=== PATIENT | female | born 2000 | race Caucasian/White ===

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

== ENCOUNTER 2022-02-11 14:51 | Outpatient (REF) | payer MEDICAID, SELFPAY | END 2022-02-11 14:52 | disposition home or self-care (01) | LOC: LBN 14:51 | PROVIDERS: PCP Nurse Practitioner Family; Visit Provider Nurse Practitioner Family | DX: J02.9 Acute pharyngitis, unspecified (principal) | CPT/HCPCS: 87070 ==

== ENCOUNTER 2022-02-17 02:52 | Outpatient (CLI) | payer MEDICAID, SELFPAY ==
[2022-02-17 14:58] LABS: TSH (W/Ref FT4) 1.97 uIU/mL (0.36-3.74)
[2022-02-21 12:55] LABS: Result Summary NEGATIVE; Specimen WB Whole Blood
== END 2022-02-17 02:53 | disposition home or self-care (01) ==
LOC: LBO 02:52
PROVIDERS: PCP Nurse Practitioner Family; Visit Provider Obstetrics & Gynecology
DX: N97.9 Female infertility, unspecified (principal); N92.0 Excessive and frequent menstruation with regular cycle
CPT/HCPCS: 36415; 81220; 84443

== ENCOUNTER 2022-02-17 10:20 | Outpatient (REF) | payer MEDICAID, SELFPAY | END 2022-02-17 10:21 | disposition home or self-care (01) | LOC: LBN 10:20 | PROVIDERS: PCP Nurse Practitioner Family; Visit Provider Physician Assistant | DX: J02.9 Acute pharyngitis, unspecified (principal) | CPT/HCPCS: 87070 ==

== ENCOUNTER 2022-02-19 03:11 | Outpatient (CLI) | payer MEDICAID, SELFPAY ==
[2022-02-19 21:42] LABS: HCG Beta,Quant Preg 9326 mIU/mL (<5)
== END 2022-02-19 03:12 | disposition home or self-care (01) ==
LOC: LBO 03:11
PROVIDERS: PCP Nurse Practitioner Family; Visit Provider Advanced Practice Midwife
DX: O20.8 Other hemorrhage in early pregnancy (principal); Z3A.01 Less than 8 weeks gestation of pregnancy
CPT/HCPCS: 36415; 86850; 86900; 86901; 84702

== ENCOUNTER 2022-02-28 01:18 | Outpatient (CLI) | payer MEDICAID, SELFPAY ==
[2022-02-28 21:56] LABS: HCG Beta,Quant Preg 334 mIU/mL (<5)
== END 2022-02-28 01:19 | disposition home or self-care (01) ==
LOC: LBO 01:18
PROVIDERS: Visit Provider Obstetrics & Gynecology
DX: O26.851 Spotting complicating pregnancy, first trimester (principal)
CPT/HCPCS: 36415; 84702

== ENCOUNTER 2022-04-24 09:27 | Emergency (ER) | payer MEDICAID, SELFPAY ==
[2022-04-24 09:41] VITALS: BP 123/72; PULSE 83; RESP 18; TEMP 37.1; O2SAT 98
--- NOTE | 2022-04-24 10:30 | RT.EKG_ITS ---
APPROVED REPORT Exam: Resting ECG Reason for Exam: palpitations Patient Location: E HR:62 bpm ECG Measurements Heart Rate 62 AXIS OR 126 P -17 QRSd 86 QRS 120 QT 408 T 66 QTc 415 Conclusion Sinus rhythm...normal P axis, V-rate 60- 99 Right axis deviation...QRS axis (111,269)
--- NOTE | 2022-04-24 10:42 | ED.GENADUL_ITS ---
Discharge Plan Disposition Patient Disposition: HOME Condition: Stable Discharge Details Clinical Impression: Anxiety Primary Care Provider: Unknown,Unknown ED Provider: Dav Arreguin Home Meds and New Rx's Prescriptions: New lorazepam [Ativan] 1 mg tablet 1 mg PO TID PRN (Reason: anxiety) Qty: 7 0RF Continued Gummies(zinc chelate) 180 mcg-35 mg- 25 mg-5 mg tablet,chewable PO Discharge Instructions Instructions: Anxiety (ED) Additional Instructions: follow up with your primary care provider within 1 week if you feel more ill, have worsening symptoms or severe pain return to the emergency department do not drink alcohol or operate heavy machinery including cars if you take the lorazepam Medical Decision Making 22 yo female who denies chronic medical problems but has been having feelins of anxiety for the past few weeks and started zoloft, comes in with complaints of feeling anxious and on edge. She denies any si/hi, no depression. she states she wakes up and will feel as though herh eart is beating fast, no pain or dyspnea. She denies alcohol or drug use. she did have a miscarriage in February and states she thinks this may have caused her to become anxious. She arrives stable but does appear anxious, is tearful intermittently and talks fast, is caox4 with no slurred speech, no focal motor or sensation deficits, no abdomen tenderness, no murmurs, clear lungs. Her symptoms and presentation are consistent with anxiety vs panic attack, she is willing to try a dose of lorazepam, will ressess. Given the heart racing sensation will obtain ekg though her heart rate is normal on triage and states she had the feeling of heart racing while this was being done. She has no tachycardia, hypoxia, leg swelling or calf tenderness, doubt pe and no pain or pressure to suggest acs so do not feel labs or imaging indicated. pt feels much better and ekg unremarkable, less anxious on exam. Will provide short course of as needed ativan and advised to f/u with pcp, return precautions given Differential Diagnosis Differential Diagnosis: anxiety, panic attack, palpitations ECG Data Attestation: I personally reviewed and interpreted this ECG (s) as follows: Prior ECG tracings: not available for review Interpretation: sinus rhythm, rate of 62, no acute st t wave ischemic findings HPI General Mode of arrival: ambulatory . Date/Time Provider Initiated Documentation: 04/24/22 09:33 . Limitations to Documentation: no limitations . Information obtained by: patient . History of Present Illness 22 year old F presents to the emergency department with the chief complaint of anxiety, described as moderate, Patient started experiencing this week(s) (3) and it has been constant. No relieving factors improve symptom(s), No exacerbating factors reported . Patient did receive the following treatments prior to arrival, none Related Data Home Medications Medication Instructions Recorded Confirmed PNV 178-FA 180 mcg-om3 35 mg-dha tab PO 01/06/22 02/26/22 25 mg-epa 5 mg-fish oil chew tablet ( Gummies (zinc chelate)) lorazepam 1 mg tablet (Ativan) 1 mg PO TID PRN anxiety #7 tabs 04/24/22 Previous Rx's Medication Instructions Recorded lorazepam 1 mg tablet (Ativan) 1 mg PO TID PRN anxiety #7 tabs 04/24/22 Allergies Allergy/AdvReac Type Severity Reaction Status Date / Time No Known Allergies Allergy Verified 02/26/22 14:51 General Stated Complaint: Anxiety LYUDMILA: 4 Review of Systems All systems reviewed & are unremarkable except as noted in HPI and below Constitutional Constitutional: Denies chills, Denies fever(s) and Denies weakness Cardiovascular Cardiovascular: Denies chest pain and Denies dyspnea Respiratory Respiratory: Denies cough and Denies dyspnea Gastrointestinal Gastrointestinal: Denies abdominal pain, Denies nausea and Denies vomiting Integumentary/Breasts Skin/Breast: Denies rash Neurologic Neurologic: Denies weakness Psychiatric Psychiatric: Denies depression PFSH All Active Problems (Updated 04/24/22 @ 11:04 by Dav Arreguin MD) Anxiety (Chronic) 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) Pelvic pain (Acute) Depression (Chronic) Heart murmur (Acute) Learning difficulty (Chronic) IEP signed 05/24/18 Medical History (Updated 04/24/22 @ 11:04 by Dav Arreguin MD) Complete miscarriage Learning difficulty Family History Mother Mental disorder anxiety/depression Gestational diabetes Father Essential hypertension Other Diabetes MGM, MGF, mat uncles Alcohol abuse MGF Essential hypertension mat uncles, PGF, MGF Personal history of malignant neoplasm mat side Heart disease PGF, MGF Hyperlipidemia MGF Mental disorder MGM, MGF, mat uncles- anxiety/depression Myocardial infarction PGF, MGF Stroke MGF Social History Smoking/Tobacco Use Status: Never Smoking risk assessment performed?: Yes Alcohol Intake: current Alcohol Intake frequency: holidays/special occasions only Alcohol type: hard liquor Drug use: Never Substance use type: does not use Duration: 45-60 minutes/day Frequency: daily Seatbelt use: always Helmet use: No Fire extinguisher in home: Yes Carbon monox detector in home: Yes Firearms in home: No Do you feel safe at home: Yes Do you feel safe in your relationship?: Yes Female Reproductive History Menstrual Age of Menarche: 16 Duration of menses: 6-7 days control method: none and implanted History History 1 Para Hx # Term Pregnancies Multiple births Hx # Pregnancies Ectopic pregnancies AB induced Hx Number of Living Children AB spontaneous 1 Past Pregnancies Del. Date GA/Weeks # Preg Succ Route Wgt Sex Labor Lgth Anesth esia Location Prov [facility] 02/26/22 7 No No Delivery Date: 02/26/22 Last Updated by: Rosy Pozo LPN miscarriage Exam Const General: anxious Orientation: alert HENMT Head: normal to inspection Ears: external ears normal General nose exam: external nose normal Mouth: moist mucous membranes Eyes General: appearance normal, both eyes and all related structures Neck Neck: normal visual inspection Resp Effort & Inspection: normal respiratory effort and able to speak in complete sentences Cardio Rate: regular rate GI Palpation: soft and nontender Skin General skin exam: no rashes or lesions noted Neuro General: patient alert and patient oriented x3 Extrem General: normal to inspection Psych Mental Status: mental status grossly normal Course Vital Signs Vital signs: Vital Signs Temperature 37.1 C 04/24/22 09:41 Pulse 83 04/24/22 09:41 Respiratory Rate 18 04/24/22 09:41 Blood Pressure 123/72 04/24/22 09:41 Pulse Oximetry 98 04/24/22 09:41 Temperature 37.1 C 04/24/22 09:41 Temperature Source Temporal Artery Scan 04/24/22 09:41 Pulse 83 04/24/22 09:41 Respiratory Rate 18 04/24/22 09:41 Blood Pressure 123/72 04/24/22 09:41 Blood Pressure Position Sitting 04/24/22 09:41 Pulse Oximetry 98 04/24/22 09:41 Oxygen Delivery Method Room Air 04/24/22 09:41 Oxygen Flow Rate 0 04/24/22 09:41
[2022-04-24] MEDS: LORazepam 1 MG TAB PO (10:51)
[2022-04-24 11:26] VITALS: BP 120/76; PULSE 62; O2SAT 98
[2022-04-24 11:28] VITALS: RESP 18
== END 2022-04-24 11:31 | disposition home or self-care (01) ==
PROVIDERS: Emergency Provider Emergency Medicine
DX: F41.9 Anxiety disorder, unspecified (principal); F32.9 Major depressive disorder, single episode, unspecified
CPT/HCPCS: 93005; 99283; 93010; 99284

== ENCOUNTER 2022-04-25 16:18 | Outpatient (REF) | payer MEDICAID, SELFPAY ==
[2022-04-25 15:44] LABS: HCT 39.3 % (36.0-46.0); HGB 13.1 g/dL (11.2-15.7); MCH 28.8 pg (27.0-33.0); MCHC 33.3 % (32.0-36.0); MCV 86 fL (80-95); Platelet Count 392 10^3/uL (130-400); RBC 4.55 10^6/uL (3.93-5.22); RDW 13.4 % (11.7-14.6); RDW-SD 42.1 fL; WBC 10.72 10^3/uL (4.4-10.8)
[2022-04-25 16:44] LABS: TSH (W/Ref FT4) 0.92 uIU/mL (0.36-3.74)
[2022-04-25 16:49] LABS: HCG Qual (Serum) Negative
== END 2022-04-25 16:19 | disposition home or self-care (01) ==
LOC: NCHCN 16:18
PROVIDERS: Visit Provider Family Medicine
DX: F41.9 Anxiety disorder, unspecified (principal); F41.0 Panic disorder [episodic paroxysmal anxiety]; Z87.59 Personal history of other complications of pregnancy, childbirth and the puerperium
CPT/HCPCS: 85027; 84443; 84703

== ENCOUNTER 2022-04-30 07:47 | Emergency (ER) | payer MEDICAID, SELFPAY ==
[2022-04-30] VITALS (36 sets, daily range): BP systolic 95–150; BP diastolic 66–111; PULSE 55–152; RESP 10–36; TEMP 36.8–37.2; O2SAT 97–100
--- NOTE | 2022-04-30 08:25 | ED.GENADUL_ITS ---
Discharge Plan Disposition Patient Disposition: HOME Condition: Improving Discharge Details Clinical Impression: Abdominal pain Primary Care Provider: Unknown,Unknown ED Provider: Bridgette Be Home Meds and New Rx's Prescriptions: No Action lorazepam [Ativan] 1 mg tablet 1 mg PO TID PRN (Reason: anxiety) Qty: 7 0RF Discharge Instructions Instructions: Abdominal Pain (ED) Additional Instructions: Please return immediately to the emergency department if you develop any new or worsening symptoms, if your condition does not improve as expected, or if you become otherwise concerned. It is extremely important that you call soon as possible to make an appointment to be seen in follow-up for this visit by your primary care doctor. It is very important that you attend your scheduled telehealth visit with Dr. Hinds this Thursday, 05/02, at 10:00 AM. Referrals: Hetal Hinds MD [ [facility] STAFF PHYSICIAN] - Medical Decision Making Concern for ectopic , pancreatitis, gastritis, colitis, other. Doubt pulmonary embolism. Bedside POCUS shows question trace free fluid at the liver tip on hepatorenal view, no free fluid on pelvic or splenorenal windows. [id number] test positive. I discussed patient emergently with Dr. Hinds of obstetrics, who will see patient, she requests defer further imaging at this time. Plan for IV placement x2, telemetry, screening labs. Patient heart rate 70-80 after reassurance and lengthy discussion regarding plan for medical care. Blood pressure 123/91. Dr. Hinds at bedside, performed internal examination. She recommends formal transvaginal ultrasound at this time. Per radiology ultrasound shows somewhat thickened endometrium, no gestational sac, no adnexal abnormality, free fluid in the pelvis. hCG 50. I discussed lab and radiology results with Dr. Hinds, who requested patient be discharged home with outpatient follow-up this Wednesday 05/02 at 10 AM. She states hCG likely residual from miscarriage 03/10. I discussed results with the patient. Patient reports continued left upper quadrant pain. I discussed risk/benefits of CT for further evaluation with the patient including risk of CT scan indicates that hCG represents very early viable . Patient verbalized understanding of risks and requests CT scan with shared decision making. Per radiology CT shows no abnormality other than free fluid in the pelvis consistent with possible hemorrhagic cyst. Plan for repeat H&H. Patient reports that she feels significantly better at that this time and has no further abdominal pain. She requests to go home. She is amenable to waiting for repeat H&H. Repeat hemoglobin 12.5, dilutional drop anticipated, no sign of significant hemorrhage. Patient denies abdominal pain, lightheadedness, other symptoms reports feeling well. I had a discussion with Patient regarding return to emergency department precautions, home care, and importance of outpatient follow-up. Pt verbalizes understanding of the plan and is amenable. Patient discharged to home with clear plan for outpatient follow-up. All questions were answered. Disposition decision was made weighing the risks and benefits of hospitalization versus outpatient treatment, the risk for further decompensation, and the patient's wishes. Medical Records Medical records reviewed: Yes I reviewed the patient's medical records. Imaging Data Radiologic Study: Radiologist's impression: EXAM:? CT ABDOMEN ? PELVIS W INDICATION:? LUQ pain. COMPARISON:? No exams were available for comparison TECHNIQUE:? FINDINGS: CT examination of the abdomen and pelvis was performed with intravenous infusion of 67 cc of Omnipaque 350. Images obtained through the lung bases are unremarkable. The liver is unremarkable in appearance. Gallbladder and bile ducts are CT normal. Pancreas appears normal. Spleen is unremarkable in appearance. Adrenals appear normal.? The kidneys are unremarkable with no evidence of hydronephrosis, nephrolithiasis, or renal mass..? Urinary bladder unremarkable. Abdominal aorta is of normal diameter and no major vascular abnormality is seen. No abdominal wall hernia. No abdominal or pelvic adenopathy. VEST MAKER structures appear intact with a probable left ovarian collapsed cyst.? There is small to moderate free fluid in the pelvis.. Appendix is normal. No evidence of diverticulitis or bowel obstruction. IMPRESSION: Free fluid in the pelvis, probable left ovarian collapsed cyst.? No other significant findings.. EXAM:? US OB 1ST TRIMESTER CLINICAL HISTORY:? abdominal pain, + test TECHNIQUE:? Ultrasound? performed using standard protocol. COMPARISON:? No exams were available for comparison FINDINGS: Pelvic ultrasound was performed.? There is no intrauterine gestation.? Endometrial stripe is 17 millimeters in thickness and appears homogeneous. The ovaries have a normal follicular appearance, right ovary measures 21 x 11 x 13 millimeters and left ovary measures 32 x 20 x 20 millimeters. There is a small to moderate quantity of free fluid in the pelvis which is nonspecific. No evidence of intrauterine gestation, please correlate with serum HCG levels. Lab Data Lab results reviewed: Yes I reviewed the patient's lab results. Labs: Laboratory Tests Range/Units 04/30/22 04/30/22 04/30/22 08:10 08:10 08:10 WBC (4.4-10.8) 10^3/uL RBC (3.93-5.22) 10^6/uL Hgb (11.2-15.7) g/dL Hct (36.0-46.0) % MCV (80-95) fL MCH (27.0-33.0) pg MCHC (32.0-36.0) % RDW (11.7-14.6) % Plt Count (130-400) 10^3/uL MPV (8.0-11.0) fL Immature Gran % Neutrophils % Lymphocytes % Monocytes % Eosinophils % Basophils % Nucleated RBC % (0.0-0.3) % Absolute Neutrophils (1.2-6.7) 10^3/uL Absolute Lymphocytes (1.2-3.4) 10^3/uL Absolute Monocytes (0.1-0.8) 10^3/uL Absolute Eosinophils (0.0-0.7) 10^3/uL Absolute Basophils (0.0-0.2) 10^3/uL PT (9.3-11.0) sec 10.5 INR (0.9-1.1) 1.0 Sodium (136-145) mmol/L 138 Potassium (3.5-5.1) mmol/L 3.3 L Chloride (98-107) mmol/L 102 Carbon Dioxide (21.0-32.0) mmol/L 24.8 Anion Gap (3-11) mmol/L 11.2 H BUN (7-18) mg/dL 11 Creatinine (0.55-1.02) mg/dL 0.8 Est GFR (CKD-EPI 2020) (mL/min/1.73m2) 108.11 Glucose (74-106) mg/dL 101 Calcium (8.5-10.1) mg/dL 9.2 Total Bilirubin (0.2-1.0) mg/dL 0.3 AST (15-37) U/L 17 ALT (14-59) U/L 22 Alkaline Phosphatase (46-116) U/L 77 Total Protein (6.4-8.2) g/dL 8.3 H Albumin (3.4-5.0) g/dL 4.5 Lipase (73-393) U/L Beta HCG, Quant (1-3) mIU/mL Patient ABO/Rh O Positive Antibody Screen NEGATIVE Range/Units 04/30/22 04/30/22 04/30/22 08:10 08:10 08:10 WBC (4.4-10.8) 10^3/uL 13.44 H RBC (3.93-5.22) 10^6/uL 4.93 Hgb (11.2-15.7) g/dL 14.2 Hct (36.0-46.0) % 42.4 MCV (80-95) fL 86 MCH (27.0-33.0) pg 28.8 MCHC (32.0-36.0) % 33.5 RDW (11.7-14.6) % 13.4 Plt Count (130-400) 10^3/uL 389 MPV (8.0-11.0) fL 10.2 Immature Gran % 0.3 Neutrophils % 73.5 Lymphocytes % 18.8 Monocytes % 6.5 Eosinophils % 0.5 Basophils % 0.4 Nucleated RBC % (0.0-0.3) % 0.0 Absolute Neutrophils (1.2-6.7) 10^3/uL 9.88 H Absolute Lymphocytes (1.2-3.4) 10^3/uL 2.53 Absolute Monocytes (0.1-0.8) 10^3/uL 0.87 H Absolute Eosinophils (0.0-0.7) 10^3/uL 0.07 Absolute Basophils (0.0-0.2) 10^3/uL 0.05 PT (9.3-11.0) sec INR (0.9-1.1) Sodium (136-145) mmol/L Potassium (3.5-5.1) mmol/L Chloride (98-107) mmol/L Carbon Dioxide (21.0-32.0) mmol/L Anion Gap (3-11) mmol/L BUN (7-18) mg/dL Creatinine (0.55-1.02) mg/dL Est GFR (CKD-EPI 2020) (mL/min/1.73m2) Glucose (74-106) mg/dL Calcium (8.5-10.1) mg/dL Total Bilirubin (0.2-1.0) mg/dL AST (15-37) U/L ALT (14-59) U/L Alkaline Phosphatase (46-116) U/L Total Protein (6.4-8.2) g/dL Albumin (3.4-5.0) g/dL Lipase (73-393) U/L 74 Beta HCG, Quant (1-3) mIU/mL 50 H Patient ABO/Rh Antibody Screen Range/Units 04/30/22 12:29 WBC (4.4-10.8) 10^3/uL RBC (3.93-5.22) 10^6/uL Hgb (11.2-15.7) g/dL 12.5 Hct (36.0-46.0) % 36.8 MCV (80-95) fL MCH (27.0-33.0) pg MCHC (32.0-36.0) % RDW (11.7-14.6) % Plt Count (130-400) 10^3/uL MPV (8.0-11.0) fL Immature Gran % Neutrophils % Lymphocytes % Monocytes % Eosinophils % Basophils % Nucleated RBC % (0.0-0.3) % Absolute Neutrophils (1.2-6.7) 10^3/uL Absolute Lymphocytes (1.2-3.4) 10^3/uL Absolute Monocytes (0.1-0.8) 10^3/uL Absolute Eosinophils (0.0-0.7) 10^3/uL Absolute Basophils (0.0-0.2) 10^3/uL PT (9.3-11.0) sec INR (0.9-1.1) Sodium (136-145) mmol/L Potassium (3.5-5.1) mmol/L Chloride (98-107) mmol/L Carbon Dioxide (21.0-32.0) mmol/L Anion Gap (3-11) mmol/L BUN (7-18) mg/dL Creatinine (0.55-1.02) mg/dL Est GFR (CKD-EPI 2020) (mL/min/1.73m2) Glucose (74-106) mg/dL Calcium (8.5-10.1) mg/dL Total Bilirubin (0.2-1.0) mg/dL AST (15-37) U/L ALT (14-59) U/L Alkaline Phosphatase (46-116) U/L Total Protein (6.4-8.2) g/dL Albumin (3.4-5.0) g/dL Lipase (73-393) U/L Beta HCG, Quant (1-3) mIU/mL Patient ABO/Rh Antibody Screen HPI General Mode of arrival: ambulatory . Date/Time Provider Initiated Documentation: 04/30/22 08:00 . Limitations to Documentation: no limitations . Information obtained by: patient . HPI Narrative: Simone Jackson is a 22-year-old woman without reported history of medical problems presenting to emergency department with abdominal pain. Patient reports that she went to bed with mild generalized abdominal pain last night, woke up at 2 in the morning with sharp pain in the left upper quadrant. Patient reports that she otherwise had a normal day yesterday, denies any trauma. Patient denies any other pain, fever, cough, shortness of breath, vomiting, diarrhea, numbness, weakness, rash, vaginal bleeding. Patient reports that last menstrual period was 04/04/2022; she states that this period was unusually heavy and was the first menstrual period that she has had since September 2021 when she had a miscarriage. Related Data Home Medications Medication Instructions Recorded Confirmed lorazepam 1 mg tablet (Ativan) 1 mg PO TID PRN anxiety #7 tabs 04/24/22 04/30/22 Previous Rx's Medication Instructions Recorded lorazepam 1 mg tablet (Ativan) 1 mg PO TID PRN anxiety #7 tabs 04/24/22 Allergies Allergy/AdvReac Type Severity Reaction Status Date / Time No Known Allergies Allergy Verified 04/30/22 08:10 General Stated Complaint: Abd Prob LYUDMILA: 3 Review of Systems Narrative: Constitutional: denies fevers Eyes: denies eye pain ENT: denies ear pain, dental pain, sore throat Cardiovascular: denies chest pain, edema Respiratory: denies SOB, cough GI: denies vomiting, diarrhea, reports abdominal pain : denies flank pain, vaginal bleeding MSK: denies back pain, neck pain, arthralgias, myalgias Skin: denies rash Neuro: denies headaches, numbness, weakness PFSH All Active Problems (Updated 04/30/22 @ 12:56 by Bridgette Be MD) Anxiety (Chronic) Abdominal pain (Acute) 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) Pelvic pain (Acute) Depression (Chronic) Heart murmur (Acute) Learning difficulty (Chronic) IEP signed 05/24/18 Medical History Complete miscarriage Learning difficulty Family History Mother Mental disorder anxiety/depression Gestational diabetes Father Essential hypertension Other Diabetes MGM, MGF, mat uncles Alcohol abuse MGF Essential hypertension mat uncles, PGF, MGF Personal history of malignant neoplasm mat side Heart disease PGF, MGF Hyperlipidemia MGF Mental disorder MGM, MGF, mat uncles- anxiety/depression Myocardial infarction PGF, MGF Stroke MGF Social History Smoking/Tobacco Use Status: Never Smoking risk assessment performed?: Yes Alcohol Intake: current Alcohol Intake frequency: holidays/special occasions only Alcohol type: hard liquor Drug use: Never Substance use type: marijuana Duration: 45-60 minutes/day Frequency: daily Seatbelt use: always Helmet use: No Fire extinguisher in home: Yes Carbon monox detector in home: Yes Firearms in home: No Do you feel safe at home: Yes Do you feel safe in your relationship?: Yes Female Reproductive History Menstrual Age of Menarche: 16 Duration of menses: 6-7 days control method: none and implanted History History 1 Para Hx # Term Pregnancies Multiple births Hx # Pregnancies Ectopic pregnancies AB induced Hx Number of Living Children AB spontaneous 1 Past Pregnancies Del. Date GA/Weeks # Preg Succ Route Wgt Sex Labor Lgth Anesth esia Location Prov Complic 02/26/22 7 No No Delivery Date: 02/26/22 Last Updated by: Rosy Pozo LPN miscarriage Exam Narrative Exam Narrative: Constitutional: well and [id number], tearful, conversing normally HENT: head atraumatic/normocephalic/normal inspection, mucous membranes moist Eyes: conjunctiva normal, sclera normal, pupils 3mm b/l Neck: no stridor, normal ROM, trachea midline Chest: normal inspection Resp: normal work of breathing, speaking in full sentences Cardio: Tachycardic rate, normal rhythm GI: abdomen soft, focal tenderness to palpation left upper quadrant, no rebound, no guarding, no other abdominal tenderness to palpation, non-distended Skin: warm, dry, normal color, no rash Neuro: alert, not altered, grossly non-focal, normal tone Ext: no edema Psych: Anxious mood, normal affect, normal behavior Course Vital Signs Vital signs: Vital Signs Temperature 36.8 C 04/30/22 07:50 Pulse 96 H 04/30/22 07:50 Respiratory Rate 16 04/30/22 07:50 Blood Pressure 129/99 H 04/30/22 07:50 Pulse Oximetry 98 04/30/22 07:50 Temperature 36.8 C 04/30/22 07:50 Temperature Source Oral 04/30/22 07:50 Pulse 96 H 04/30/22 07:50 Respiratory Rate 16 04/30/22 07:50 Respiratory Effort Non-Labored 04/30/22 08:12 Blood Pressure 129/99 H 04/30/22 07:50 Pulse Oximetry 98 04/30/22 07:50 Oxygen Delivery Method Room Air 04/30/22 07:50 Oxygen Flow Rate 0 04/30/22 07:50 Lab/Test Results Lab/Test Results: POC- Test(urine) Positive
[2022-04-30] MEDS: Normal Saline 1,000 ML 1000 ML IV (08:40)
[2022-04-30 08:43] LABS: Abs Immature Grans 0.04 10^3/uL (0.0-0.06); Absolute Basophil Count 0.05 10^3/uL (0.0-0.2); Absolute Eosinophil Count 0.07 10^3/uL (0.0-0.7); Absolute Lymphocyte Count 2.53 10^3/uL (1.2-3.4); Absolute Monocyte Count 0.87 10^3/uL (0.1-0.8); Absolute Neutrophil Count 9.88 10^3/uL (1.2-6.7); Basophils % 0.4; Eosinophils % 0.5; HCT 42.4 % (36.0-46.0); HGB 14.2 g/dL (11.2-15.7); Immature Grans % 0.3; Lymphocytes % 18.8; MCH 28.8 pg (27.0-33.0); MCHC 33.5 % (32.0-36.0); MCV 86 fL (80-95); MPV 10.2 fL (8.0-11.0); Monocytes % 6.5; Neutrophils % 73.5; Platelet Count 389 10^3/uL (130-400); RBC 4.93 10^6/uL (3.93-5.22); RDW 13.4 % (11.7-14.6); RDW-SD 42.3 fL; WBC 13.44 10^3/uL (4.4-10.8)
--- NOTE | 2022-04-30 08:49 | DI.US_ITS ---
Exam(s) US OB 1ST TRIMESTER EXAM: US OB 1ST TRIMESTER CLINICAL HISTORY: abdominal pain, + test TECHNIQUE: Ultrasound performed using standard protocol. COMPARISON: No exams were available for comparison FINDINGS: Pelvic ultrasound was performed. There is no intrauterine gestation. Endometrial stripe is 17 kleber meters in thickness and appears homogeneous. The ovaries have a normal follicular appearance, right ovary measures 21 x 11 x 13 millimeters and le ft ovary measures 32 x 20 x 20 millimeters. There is a small to moderate quantity of free fluid in the pelvis which is nonspecific. No evidence of intrauterine gestation, please correlate with serum HCG levels. IMPRESSION: DATA REPOSITORY:
[2022-04-30] MEDS: fentaNYL 100 MCG/2 ML VIAL 40 MCG IVP (08:57)
[2022-04-30 08:58] LABS: Prothrombin Time 10.5 sec (9.3-11.0)
[2022-04-30 09:01] LABS: Lipase 74 U/L (73-393)
[2022-04-30 09:06] LABS: ALT 22 U/L (14-59); AST 17 U/L (15-37); Albumin 4.5 g/dL (3.4-5.0); Alkaline Phosphatase 77 U/L (46-116); Anion Gap 11.2 mmol/L (3-11); BUN 11 mg/dL (7-18); Bilirubin, Total 0.3 mg/dL (0.2-1.0); CO2 24.8 mmol/L (21.0-32.0); CREATININE 0.8 mg/dL (0.55-1.02); Calcium 9.2 mg/dL (8.5-10.1); Chloride 102 mmol/L (98-107); Estimated GFR 108.11 (mL/min/1.73m2); Glucose 101 mg/dL (74-106); Potassium 3.3 mmol/L (3.5-5.1); Sodium 138 mmol/L (136-145); Total Protein 8.3 g/dL (6.4-8.2)
[2022-04-30 09:30] LABS: HCG Quant, Pregnancy 50 mIU/mL (1-3)
--- NOTE | 2022-04-30 10:15 | DI.CT_ITS ---
Exam(s) CT ABDOMEN PELVIS W EXAM: CT ABDOMEN PELVIS W INDICATION: LUQ pain. COMPARISON: No exams were available for comparison TECHNIQUE: FINDINGS: CT examination of the abdomen and pelvis was performed with intravenous infusion of 67 cc of Omnipaqu e 350. Images obtained through the lung bases are unremarkable. The liver is unremarkable in appearance. Gallbladder and bile ducts are CT normal. Pancreas appears normal. Spleen is unremarkable in appearance. Adrenals appear normal. The kidneys are unremarkable with no evidence of hydronephrosis, nephrolithiasis, or renal mass.. Ur inary bladder unremarkable. Abdominal aorta is of normal diameter and no major vascular abnormality is seen. No abdominal wall hernia. No abdominal or pelvic adenopathy. MAGAZINE REPAIRER structures appear intact with a probable left ovarian collapsed cyst. There is small to moderate free fluid in the pelvis.. Appendix is normal. No evidence of diverticulitis or bowel obstruction. IMPRESSION: Free fluid in the pelvis, probable left ovarian collapsed cyst. No other significant findings.. RADIATION DOSE DELIVERED: 484.11mGy.cm Total DLP 484.11mGy.cm Total DLP !Error CTDIvol RADIATION OPTIMIZATION: All CT scans at this facility use at least one of these dose optimization te chniques: automated exposure control; mA and/or kV adjustment per patient size (includes targeted exa ms where dose is matched to clinical indication); or iterative reconstruction.
[2022-04-30] MEDS: Omnipaque 350 MG/ML 500 ML BTL-Imaging package IJ (11:32)
[2022-04-30 12:33] LABS: HCT 36.8 % (36.0-46.0); HGB 12.5 g/dL (11.2-15.7)
== END 2022-04-30 13:24 | disposition home or self-care (01) ==
PROVIDERS: Emergency Provider Student in an Organized Health Care Education/Training Program
DX: O26.891 Other specified pregnancy related conditions, first trimester (principal); R10.84 Generalized abdominal pain; Z3A.01 Less than 8 weeks gestation of pregnancy; O09.291 Supervision of pregnancy with other poor reproductive or obstetric history, first trimester
CPT/HCPCS: 80053; 81025; 83690; 86850; 86900; 86901; 96361; 96374; 99285; 74177; 76801; 84702; 85014; 85018; 85025; 85610; 99284; J3010

== ENCOUNTER 2022-05-02 14:49 | Outpatient (CLI) | payer MEDICAID, SELFPAY ==
[2022-05-02 11:09] LABS: HCG Quant, Pregnancy 172 mIU/mL (1-3)
== END 2022-05-02 14:50 | disposition home or self-care (01) ==
LOC: LBO 14:50
PROVIDERS: Visit Provider Obstetrics & Gynecology Gynecology
DX: R10.2 Pelvic and perineal pain (principal); Z32.01 Encounter for pregnancy test, result positive
CPT/HCPCS: 36415; 84702

== ENCOUNTER 2022-05-08 03:45 | Outpatient (CLI) | payer MEDICAID, SELFPAY ==
[2022-05-08 12:25] LABS: HCG Quant, Pregnancy 1407 mIU/mL (1-3)
== END 2022-05-08 03:46 | disposition home or self-care (01) ==
LOC: LBO 03:45
PROVIDERS: Visit Provider Obstetrics & Gynecology Gynecology
DX: R10.9 Unspecified abdominal pain (principal); Z32.01 Encounter for pregnancy test, result positive
CPT/HCPCS: 36415; 84702

== ENCOUNTER 2022-06-26 01:33 | Outpatient (CLI) | payer MEDICAID, SELFPAY ==
[2022-06-26 14:11] LABS: Panorama Kit Sent via Fed Ex
[2022-06-26 14:15] LABS: Abs Immature Grans 0.05 10^3/uL (0.0-0.06); Absolute Basophil Count 0.05 10^3/uL (0.0-0.2); Absolute Eosinophil Count 0.04 10^3/uL (0.0-0.7); Absolute Lymphocyte Count 1.99 10^3/uL (1.2-3.4); Absolute Monocyte Count 1.04 10^3/uL (0.1-0.8); Absolute Neutrophil Count 9.03 10^3/uL (1.2-6.7); Basophils % 0.4; Eosinophils % 0.3; HCT 38.4 % (36.0-46.0); HGB 13.1 g/dL (11.2-15.7); Immature Grans % 0.4; Lymphocytes % 16.3; MCH 29.5 pg (27.0-33.0); MCHC 34.1 % (32.0-36.0); MCV 87 fL (80-95); MPV 10.2 fL (8.0-11.0); Monocytes % 8.5; Neutrophils % 74.1; Platelet Count 331 10^3/uL (130-400); RBC 4.44 10^6/uL (3.93-5.22); RDW 13.2 % (11.7-14.6); RDW-SD 41.5 fL; WBC 12.18 10^3/uL (4.4-10.8)
[2022-06-27 09:19] LABS: Hepatitis C Ab w Rflx HCV PCR Negative (Negative)
[2022-06-27 10:42] LABS: HIV-1/2 Ag & Ab Screen Negative (Negative)
[2022-06-27 10:55] LABS: Rubella IgG Ab (UVM) Positive (See Note); Varicella IgG Antibody Negative (See Note)
[2022-06-27 11:49] LABS: Hepatitis B Surface Ag Negative (Negative)
[2022-06-27 23:16] LABS: Syphilis IgG w/Reflex Nonreactive (Nonreactive)
== END 2022-06-26 01:34 | disposition home or self-care (01) ==
LOC: LBO 01:33
PROVIDERS: Visit Provider Advanced Practice Midwife
DX: Z34.91 Encounter for supervision of normal pregnancy, unspecified, first trimester (principal); Z3A.11 11 weeks gestation of pregnancy
CPT/HCPCS: 36415; 86787; 86803; 86850; 86900; 86901; 87340; 87389; 85025; 86762; 86780

== ENCOUNTER 2022-06-26 15:41 | Outpatient (REF) | payer MEDICAID, SELFPAY ==
[2022-06-26 17:02] LABS: *AMPHETAMINES SCREEN URINE Negative (Negative); *BARBITURATES SCREEN URINE Negative (Negative); *BENZODIAZEPINES SCREEN URINE Negative (Negative); Cannabinoids THC Positive (Negative); Cocaine Screen,Urine Negative (Negative); METHADONE URINE SCREEN Negative (Negative); OPIATES URINE SCREEN Negative (Negative); Tricyclic Antidepressants Negative (Negative)
[2022-06-29 14:52] LABS: Chlamydia Result Negative (Negative); GC Result Negative (Negative)
[2022-07-02 12:34] LABS: Buprenorphine Negative ng/mL (Cutoff: 5.0); Norbuprenorphine Negative ng/mL (Cutoff: 2.5)
== END 2022-06-26 15:42 | disposition home or self-care (01) ==
LOC: LBN 15:41
PROVIDERS: Visit Provider Advanced Practice Midwife
DX: Z34.91 Encounter for supervision of normal pregnancy, unspecified, first trimester (principal); Z3A.11 11 weeks gestation of pregnancy
CPT/HCPCS: 80307; 80348; 87491; 87591; 87086; 87480; 87510; 87660

== ENCOUNTER 2022-06-27 11:16 | Outpatient (REF) | payer MEDICAID, SELFPAY | END 2022-06-27 11:17 | disposition home or self-care (01) | LOC: LBN 11:16 | PROVIDERS: Visit Provider Physician Assistant Medical | DX: J02.9 Acute pharyngitis, unspecified (principal) | CPT/HCPCS: 87081 ==

== ENCOUNTER 2022-06-28 15:34 | Emergency (ER) | payer MEDICAID, SELFPAY ==
[2022-06-28 15:41] VITALS: BP 116/73; PULSE 97; RESP 17; TEMP 36.9; O2SAT 96
--- NOTE | 2022-06-28 15:57 | ED.GENADUL_ITS ---
Discharge Plan Disposition Patient Disposition: Home Condition: Stable Discharge Details Clinical Impression: Nausea and vomiting during , Influenza Primary Care Provider: KEITH ESPAÑA ED Provider: Dav Arreguin Home Meds and New Rx's Prescriptions: New ondansetron 4 mg tablet,disintegrating 4 mg PO Q8H PRN (Reason: nausea and vomiting) Qty: 30 0RF Continued prenat.vits,danae,[id number] Tablet 1 tab PO DAILY Discharge Instructions Instructions: Nausea and Vomiting in (ED), Influenza (ED) Additional Instructions: you are positive for influenza follow up with your obgyn providers as needed if you feel more ill, have persistent vomiting despite medication or severe pain return to the emergency department Medical Decision Making 22 yo female g1 at approximately 12 weeks per patient comes in with one week of intermittent n/v along with body aches and left ear pain. She denies fevers, chills, chest pain, abdomen pain, dyspnea. She denies vaginal bleeding and discharge She arrives stable speaking in full sentences, abodmen is soft and nontender on exam. Normal tm's bilaterally as well as normal EAC's. Posterior pharynx normal, no erythema, midline uvula. Clear lung sounds, no murmurs, no leg swelling. Suspect vomiting due to pregancy, will provide IVF, reglan, obtain fluvid, cbc and cmp and reassess. pt improved, is able to drink water and requesting d/c. Is positive for influenza and she states was prescribed tamiflu via urgent care yesterday despite testing negative yesterday. She denies any urinary symptoms and doesn't want to stay to provide a sample. She will f/u with her obgyn, return precautions given Differential Diagnosis Differential Diagnosis: flu, uri, hyperemesis gravidarum Sign Out No HPI General Mode of arrival: ambulatory . Date/Time Provider Initiated Documentation: 06/28/22 15:36 . Limitations to Documentation: no limitations . Information obtained by: patient . History of Present Illness 22 year old F presents to the emergency department with the chief complaint of n/v, described as moderate, Patient reports no radiation. Patient started experiencing this day(s) (5) and it has been intermittent. No relieving factors improve symptom(s), No exacerbating factors reported . Patient notes nausea/vomiting; denies chest pain, fever/chills and shortness of breath. Patient did receive the following treatments prior to arrival, other (tylenol) Related Data Home Medications Medication Instructions Recorded Confirmed prenat.vits,danae,[id number] 1 tab PO DAILY 06/09/22 06/28/22 ondansetron 4 mg disintegrating 4 mg PO Q8H PRN nausea and 06/28/22 tablet vomiting #30 tabs Previous Rx's Medication Instructions Recorded ondansetron 4 mg disintegrating 4 mg PO Q8H PRN nausea and 06/28/22 tablet vomiting #30 tabs Allergies Allergy/AdvReac Type Severity Reaction Status Date / Time No Known Allergies Allergy Verified 06/28/22 15:45 General Stated Complaint: GenMedical LYUDMILA: 3 Review of Systems All systems reviewed & are unremarkable except as noted in HPI and below Constitutional Constitutional: Denies chills and Denies fever(s) Eyes Eyes: Denies loss of vision ENT Ears, Nose, Mouth, and Throat: Denies change in voice Cardiovascular Cardiovascular: Denies chest pain and Denies dyspnea Respiratory Respiratory: Denies cough and Denies dyspnea Gastrointestinal Gastrointestinal: Denies abdominal pain Genitourinary Genitourinary: Denies dysuria Musculoskeletal Musculoskeletal: Denies joint swelling Integumentary/Breasts Skin/Breast: Denies rash Neurologic Neurologic: Denies loss of vision PFSH All Active Problems (Updated 06/28/22 @ 17:18 by Dav Arreguin MD) Nausea and vomiting during (Acute) Influenza (Acute) Maternal varicella, non-immune (Acute) Marijuana use during (Acute) Chronic GERD (Acute) (Acute) Depression (Chronic) Heart murmur (Acute) Learning difficulty (Chronic) IEP signed 05/24/18 Medical History (Updated 06/28/22 @ 17:18 by Dav Arreguin MD) Complete miscarriage Learning difficulty Pelvic pain 04/30/22. + upt in [facility] ED. Serial hCG normal rise. Plan viability u/s in May 2022. Family History (Updated 06/26/22 @ 13:17 by Jessica Matias CNM) Mother Mental disorder anxiety/depression Gestational diabetes Father Essential hypertension Other Diabetes MGM, MGF, mat uncles Alcohol abuse MGF Essential hypertension mat uncles, PGF, MGF Personal history of malignant neoplasm mat side Heart disease PGF, MGF Hyperlipidemia MGF Mental disorder MGM, MGF, mat uncles- anxiety/depression Myocardial infarction PGF, MGF Stroke MGF Maternal Grandmother Thyroid disease Social History Smoking/Tobacco Use Status: Never Smoking risk assessment performed?: Yes Alcohol Intake: current Alcohol Intake frequency: holidays/special occasions only Alcohol type: hard liquor Drug use: Never Substance use type: marijuana Duration: 45-60 minutes/day Frequency: daily Seatbelt use: always Helmet use: No Fire extinguisher in home: Yes Carbon monox detector in home: Yes Firearms in home: No Do you feel safe at home: Yes Do you feel safe in your relationship?: Yes Female Reproductive History Menstrual Age of Menarche: 16 Duration of menses: 6-7 days control method: none and implanted History History 2 Para Hx # Term Pregnancies Multiple births Hx # Pregnancies Ectopic pregnancies AB induced Hx Number of Living Children AB spontaneous 1 Past Pregnancies Del. Date GA/Weeks # Preg Succ Route Wgt Sex Labor Lgth Anesth esia Location [facility] 02/26/22 7 No No Delivery Date: 02/26/22 Last Updated by: Rosy Pozo LPN miscarriage Exam Const General: no acute distress Orientation: alert HENMT Head: normal to inspection Ears: external ears normal, TM's normal bilaterally and EAC's normal General nose exam: external nose normal Mouth: moist mucous membranes Eyes General: appearance normal, both eyes and all related structures Neck Neck: normal visual inspection Resp Effort & Inspection: normal respiratory effort and able to speak in complete sentences Cardio Rate: regular rate GI Palpation: soft and nontender Skin General skin exam: no rashes or lesions noted Neuro General: patient alert and patient oriented x3 Extrem General: normal to inspection Psych Mental Status: mental status grossly normal Course Vital Signs Vital signs: Vital Signs Temperature 36.9 C 06/28/22 15:41 Pulse 97 H 06/28/22 15:41 Respiratory Rate 17 06/28/22 15:41 Blood Pressure 116/73 06/28/22 15:41 Pulse Oximetry 96 06/28/22 15:41 Temperature 36.9 C 06/28/22 15:41 Temperature Source Oral 06/28/22 15:41 Pulse 97 H 06/28/22 15:41 Respiratory Rate 17 06/28/22 15:41 Respiratory Effort Non-Labored 06/28/22 15:44 Blood Pressure 116/73 06/28/22 15:41 Blood Pressure Position Sitting 06/28/22 15:41 Pulse Oximetry 96 06/28/22 15:41 Oxygen Delivery Method Room Air 06/28/22 15:41 Oxygen Flow Rate 0 06/28/22 15:41 Pain Level 7 06/28/22 15:41
[2022-06-28 16:08] LABS: Abs Immature Grans 0.05 10^3/uL (0.0-0.06); Absolute Basophil Count 0.03 10^3/uL (0.0-0.2); Absolute Lymphocyte Count 0.58 10^3/uL (1.2-3.4); Absolute Monocyte Count 1.17 10^3/uL (0.1-0.8); Basophils % 0.3; HCT 40.7 % (36.0-46.0); HGB 13.5 g/dL (11.2-15.7); Immature Grans % 0.4; Lymphocytes % 5.1; MCH 28.7 pg (27.0-33.0); MCHC 33.2 % (32.0-36.0); MCV 86 fL (80-95); MPV 10.4 fL (8.0-11.0); Monocytes % 10.3; Neutrophils % 83.9; Platelet Count 293 10^3/uL (130-400); RBC 4.71 10^6/uL (3.93-5.22); RDW 13.2 % (11.7-14.6); RDW-SD 41.7 fL
[2022-06-28 16:09] LABS: Absolute Neutrophil Count 9.56 10^3/uL (1.2-6.7)
[2022-06-28] MEDS: Normal Saline 1,000 ML 1000 ML IV (16:10)
[2022-06-28 16:22] LABS: ALT 24 U/L (14-59); AST 17 U/L (15-37); Albumin 4.2 g/dL (3.4-5.0); Alkaline Phosphatase 83 U/L (46-116); BUN 8 mg/dL (7-18); Bilirubin, Total 0.4 mg/dL (0.2-1.0); CREATININE 0.7 mg/dL (0.55-1.02); Calcium 9.7 mg/dL (8.5-10.1); Chloride 95 mmol/L (98-107); Glucose 99 mg/dL (74-106); Lipase 38 U/L (73-393); Magnesium 1.8 mg/dL (1.8-2.4); Potassium 3.5 mmol/L (3.5-5.1); Sodium 130 mmol/L (136-145); Total Protein 9.1 g/dL (6.4-8.2)
[2022-06-28] MEDS: Metoclopramide 10 MG/2 ML VIAL IVP (16:41)
[2022-06-28 16:49] LABS: COVID-19 PCR Negative (Negative); Influenza A PCR Positive (Negative); Influenza B PCR Negative (Negative); RSV PCR Negative (Negative)
[2022-06-28 16:50] LABS: Source Nasopharynx
[2022-06-28 17:50] VITALS: BP 119/72; PULSE 99; RESP 16; TEMP 37.1; O2SAT 99
[2022-06-28 17:56] VITALS: RESP 20
== END 2022-06-28 17:50 | disposition home or self-care (01) ==
PROVIDERS: Emergency Provider Emergency Medicine; PCP Nurse Practitioner Family
DX: O21.9 Vomiting of pregnancy, unspecified (principal); O99.511 Diseases of the respiratory system complicating pregnancy, first trimester; J10.1 Influenza due to other identified influenza virus with other respiratory manifestations; Z20.822 Contact with and (suspected) exposure to COVID-19; Z3A.12 12 weeks gestation of pregnancy
CPT/HCPCS: 80053; 83690; 87637; 96361; 96374; 99284; 83735; 85025; J2765

== ENCOUNTER 2022-10-16 02:21 | Outpatient (CLI) | payer MEDICAID, SELFPAY ==
[2022-10-16 13:47] LABS: HCT 35.3 % (36.0-46.0); HGB 12.3 g/dL (11.2-15.7); MCH 31.1 pg (27.0-33.0); MCHC 34.8 % (32.0-36.0); MCV 89 fL (80-95); MPV 10.3 fL (8.0-11.0); Platelet Count 257 10^3/uL (130-400); RBC 3.96 10^6/uL (3.93-5.22); RDW 12.4 % (11.7-14.6); RDW-SD 40.8 fL
[2022-10-16 14:02] LABS: Glucose,1 Hr (Glucola) 96 mg/dL (80-140)
== END 2022-10-16 02:22 | disposition home or self-care (01) ==
LOC: LBO 02:21
PROVIDERS: PCP Nurse Practitioner Family; Visit Provider Advanced Practice Midwife
DX: Z34.93 Encounter for supervision of normal pregnancy, unspecified, third trimester (principal); Z3A.27 27 weeks gestation of pregnancy
CPT/HCPCS: 36415; 82950; 85027

== ENCOUNTER 2022-10-16 13:10 | Outpatient (REF) | payer MEDICAID, SELFPAY ==
[2022-10-16 19:20] LABS: *AMPHETAMINES SCREEN URINE Negative (Negative); *BARBITURATES SCREEN URINE Negative (Negative); *BENZODIAZEPINES SCREEN URINE Negative (Negative); Cannabinoids THC Positive (Negative); Cocaine Screen,Urine Negative (Negative); METHADONE URINE SCREEN Negative (Negative); OPIATES URINE SCREEN Negative (Negative)
[2022-10-16 19:21] LABS: Tricyclic Antidepressants Negative (Negative)
[2022-10-23 14:38] LABS: Buprenorphine Negative ng/mL (Cutoff: 5.0); Norbuprenorphine Negative ng/mL (Cutoff: 2.5)
== END 2022-10-16 13:11 | disposition home or self-care (01) ==
LOC: LBN 13:10
PROVIDERS: PCP Nurse Practitioner Family; Visit Provider Advanced Practice Midwife
DX: Z34.93 Encounter for supervision of normal pregnancy, unspecified, third trimester (principal); Z3A.27 27 weeks gestation of pregnancy
CPT/HCPCS: 80307; 80348

== ENCOUNTER 2022-12-12 11:48 | Outpatient (REF) | payer MEDICAID, SELFPAY ==
[2022-12-12 13:17] LABS: *AMPHETAMINES SCREEN URINE Negative (Negative); *BARBITURATES SCREEN URINE Negative (Negative); *BENZODIAZEPINES SCREEN URINE Negative (Negative); Cannabinoids THC Positive (Negative); Cocaine Screen,Urine Negative (Negative); METHADONE URINE SCREEN Negative (Negative); OPIATES URINE SCREEN Negative (Negative)
[2022-12-12 13:18] LABS: Tricyclic Antidepressants Negative (Negative)
[2022-12-19 16:08] LABS: Buprenorphine Negative ng/mL (Cutoff: 5.0); Norbuprenorphine Negative ng/mL (Cutoff: 2.5)
== END 2022-12-12 11:49 | disposition home or self-care (01) ==
LOC: LBN 11:48
PROVIDERS: PCP Nurse Practitioner Family; Visit Provider Advanced Practice Midwife
DX: Z34.93 Encounter for supervision of normal pregnancy, unspecified, third trimester (principal); Z36.85 Encounter for antenatal screening for Streptococcus B; Z3A.36 36 weeks gestation of pregnancy
CPT/HCPCS: 80307; 80348; 87081

== ENCOUNTER 2023-01-11 13:15 | Inpatient (IN) | payer MEDICAID, SELFPAY ==
[2023-01-11] VITALS (8 sets, daily range): BP systolic 118–133; BP diastolic 57–93; PULSE 47–103; RESP 16; TEMP 36.4–36.8; O2SAT 99
--- NOTE | 2023-01-11 13:03 | HPE_ITS ---
Date of service: 01/11/23 Time of Service: 13:03 Assessment and Plan Assessment and plan (1) Uterine contractions: Status: Acute Assessment and plan: A: 22 yo G1 @ 40+2 wks Spontaneous onset active labor GBS+, Rh+, Varicella non-immune Low risk for SD & PPH Category 1 tracing P: Admit to BC, CBC, T&S GBS prophylaxis with PCN Expectant management, intermittent auscultation Comfort measures as pt desires Anticipate OB-HPI Labor/Delivery History of Present Illness Reason for Visit: NST Chief Complaint: Uterine Contractions (contractions that feel like cramps since 429, now every 5 minutes and more uncomfortable, has had blood tinged mucous today, no ROM). RAINA Calculator Estimated Delivery Date Method Current WG Current Estimate 01/09/23 LMP (Certain) 40w 2d Other Estimates 01/13/23 Ultrasound #1 39w 5d History of Present Expected Delivery Route/Plan - CNM FOB/Filinda - Edmond Wright (3 other children, one has CF) BB - John Wright yes to circ support team, Edmond and her mother Shanda Wants to use the tub room, hoping for unmedicated but OK w/epidural Varicella non-immune, offer vaccine GBS POSITIVE, prophylaxis with PCN Specific Issues/Plan 1. Learning Difficulty-reading problems 2. Pelvic pain - CT at ED 04/30/22, confirmed that day by QHCG 3. Panorama drawn - WNL. FOB is CF carrier- Simone previously screened negative. 4. marijuana use- trying to quit. Repeat UDS @ 28 wks + THC POSC done with Stacie Parker, repeat UDS 36 weeks + THC 5. FOB born with SVT requiring surgery - referred for level 2 US at [facility]-normal anatomy. 6. GERD - protonix escribed 06/26/22 7. Varicella non immune, discussed w/pt, will offer vaccine post Assessment: History Reviewed & Current Review of Systems Narrative: ROS completed and noncontributory other than HPI PFSH All Active Problems (Updated 01/11/23 @ 13:11 by Hillary Rivera) Uterine contractions (Acute) Group B Streptococcus carrier state affecting (Acute) Maternal varicella, non-immune (Acute) Marijuana use during (Acute) Chronic GERD (Acute) (Acute) Depression (Chronic) Heart murmur (Acute) Learning difficulty (Chronic) IEP signed 05/24/18 Medical History (Updated 01/11/23 @ 13:11 by Hillary Rivear) Complete miscarriage Learning difficulty Pelvic pain 04/30/22. + upt in [facility] ED. Serial hCG normal rise. Plan viability u/s in May 2022. Family History (Updated 06/26/22 @ 13:17 by Jessica Matias CNM) Mother Mental disorder anxiety/depression Gestational diabetes Father Essential hypertension Other Diabetes MGM, MGF, mat uncles Alcohol abuse MGF Essential hypertension mat uncles, PGF, MGF Personal history of malignant neoplasm mat side Heart disease PGF, MGF Hyperlipidemia MGF Mental disorder MGM, MGF, mat uncles- anxiety/depression Myocardial infarction PGF, MGF Stroke MGF Maternal Grandmother Thyroid disease Social History Smoking/Tobacco Use Status: Never Smoking risk assessment performed?: Yes Alcohol Intake: current Alcohol Intake frequency: holidays/special occasions only Alcohol type: hard liquor Drug use: Never Substance use type: marijuana Duration: 45-60 minutes/day Frequency: daily Seatbelt use: always Helmet use: No Fire extinguisher in home: Yes Carbon monox detector in home: Yes Firearms in home: No Do you feel safe at home: Yes Do you feel safe in your relationship?: Yes Female Reproductive History Menstrual Age of Menarche: 16 Duration of menses: 6-7 days control method: none and implanted History History 2 Para 0 Hx # Term Pregnancies 0 Multiple births 0 Hx # Pregnancies 0 Ectopic pregnancies 0 AB induced 0 Hx Number of Living Children 0 AB spontaneous 1 Past Pregnancies Del. Date GA/Weeks # Preg Succ Route Wgt Sex Labor Lgth Anesth esia Location Prov Complic 02/26/22 7 No No Delivery Date: 02/26/22 Last Updated by: Rosy Pozo LPN miscarriage Meds Allergies and Home Medications Allergies Allergy/AdvReac Type Severity Reaction Status Date / Time No Known Allergies Allergy Verified 01/07/23 14:53 Home Medications Medication Instructions Recorded Confirmed Type prenat.vits,danae,igd-[id number] 1 tab PO DAILY 06/09/22 01/07/23 History pantoprazole 20 mg tablet,delayed 20 mg PO DAILY #90 tabs 11/05/22 01/07/23 Rx release (Protonix) Exam Physical Exam Vital Signs Reviewed: Yes Constitutional Constitutional: mild distress, average body habitus and cooperative Detailed Labor and Delivery Exam Dilation: 6 Effacement (%): 90 station: -1 Cervix position: anterior Consistency: soft Amniotic Membrane Status: Intact (BBOW) Contraction Frequency(min): q 2-4 Contraction Duration(sec): 50-60 Contraction Intensity: Moderate Fetus A Heart Rate Baseline: 135 Monitor Accelerations: 15 X 15 Monitor Decelerations: None Variability: Moderate (6-25 BPM) Categories: Category I Est. Weight: 6 lb 11.586 oz Est. Weight: 3050 gms HEENT Exam HEENT Exam: Normal Neck Exam Neck Exam: Normal Chest/Brest/Axilla Exam Chest Exam: Normal Breast Exam Breast Exam: Not Done Respiratory Exam Respiratory Exam: Normal Cardiovascular Exam Cardiovascular Exam: Normal Abdominal Exam Abdominal Exam: Normal (Gravid, nontender) Rectal Exam Rectal Exam: Normal Exam Exam: Normal Extremities Exam Extremities Exam: Normal Back/Spine/Pelvis Exam Back Exam: Normal Pelvis Adequate: Yes Skin Exam Skin Exam: Normal Neurological Exam Neurological Exam: Normal Psychiatric Exam Psychiatric Exam: Normal Results Results Group Beta Strep: Positive Blood Type: O+ Rubella Status: Immune Varicella Immunity: Nonimmune Risk Assessment Risk for Shoulder Dystocia Historical/Initial OB: NEGATIVE FOR: Pelvic Abnormality, Pre- BMI>30, Previous Shoulder Dystocia or Previous Macrosomia 36 Weeks: NEGATIVE FOR: Current Gestational DM, EFW>4500gms or Maternal Weight Gain>40lbs 40 Weeks: NEGATIVE FOR: EFW> 4500 gms, Maternal Weight Gain >40lb or Post Dates Delivery Plan @ 36wks: spont labor, Delivery Plan @ 40 wks: spont labor, Risk for Pre-Eclampsia Daily Dose ASA Indicated: No Yes, if one or more: NEGATIVE FOR: Hx Pre-E/Gest HTN, Chronic HTN, Multiple Gestation, Pre-gestational DM, Renal Disease, Systemic Lupus or APA Syndrome Yes, if 2 or more: POSITIVE FOR: Nulliparity; NEGATIVE FOR: Age>= 35 yrs, >10yr btwn pregnancies, BMI>30, ethinicty, Mother/Sister w/ Pre-E or Previous IUGR Risk for Post- Hemorrhage Initial: NEGATIVE FOR: Multiple Gestation, Previous PPH, Known Clotting Deficiency, Grand Multiparity or Anticoagulation 36 Weeks: NEGATIVE FOR: Anemia, hgb<10, Low platelets(thrombocytopenia), Gestational HTN or Pre-E, Polyhydraminios or EFW>4500gms 40 Weeks: NEGATIVE FOR: Anemia, hgb<10, Low platelets (thrombocytopenia), Gestation HTN or Pre-E, Polyhydraminios or EFW>4500gms At Risk?: No Counseled re: Active Management: Yes Risks Reviewed Risks Reviewed Upon Admission: Yes
[2023-01-11 13:27] LABS: HCT 37.3 % (36.0-46.0); HGB 13.1 g/dL (11.2-15.7); MCH 31.3 pg (27.0-33.0); MCHC 35.1 % (32.0-36.0); MCV 89 fL (80-95); MPV 10.8 fL (8.0-11.0); Platelet Count 265 10^3/uL (130-400); RBC 4.18 10^6/uL (3.93-5.22); RDW 12.6 % (11.7-14.6); RDW-SD 41.2 fL; WBC 14.23 10^3/uL (4.4-10.8)
[2023-01-11] MEDS: Penicillin G POT. 5,000,000 UNITS in Normal Saline 100 ML 200 UNITS IVPB (13:30)
[2023-01-11] MEDS: Normal Saline Flush 10 ML SYR IVP ×2 (13:34→17:06)
[2023-01-11 13:41] LABS: ALT 25 U/L (14-59); AST 20 U/L (15-37); Albumin 3.2 g/dL (3.4-5.0); Alkaline Phosphatase 149 U/L (46-116); Anion Gap 10.9 mmol/L (3-11); BUN 8 mg/dL (7-18); Bilirubin, Total 0.2 mg/dL (0.2-1.0); CO2 22.1 mmol/L (21.0-32.0); CREATININE 0.7 mg/dL (0.55-1.02); Calcium 9.2 mg/dL (8.5-10.1); Chloride 103 mmol/L (98-107); Glucose 96 mg/dL (74-106); Potassium 3.6 mmol/L (3.5-5.1); Sodium 136 mmol/L (136-145); Total Protein 7.9 g/dL (6.4-8.2)
--- NOTE | 2023-01-11 15:13 | W.PM.OBNL1 ---
Date of service: 01/11/23 Time of Service: 15:13 Pelvic Exam Dilation: 8 Effacement (%): 95 station: -1 Cervix Position: mid Contractions Monitor Mode: Palpation Contraction Frequency(min): q3-4 Fetus A Monitor: Doppler Heart Rate Baseline: 140 FHR Rhythm: Regular Characteristics: Normal Amniotic Membrane Status: Intact Assessment and Plan Assessment and plan (1) Uterine contractions: Status: Acute Assessment and plan: A: 22 yo G1 active labor First dose of PCN Infused P: Continue expectant management Anticipate Objective Abnormal lab results 01/11/23 01/11/23 Range/Units 13:15 13:15 WBC 14.23 H (4.4-10.8) 10^3/uL Alkaline Phosphatase 149 H (46-116) U/L Albumin 3.2 L (3.4-5.0) g/dL Temp Pulse Resp BP Pulse Ox 97.5 F L 103 H 16 130/93 H 99 01/11/23 13:38 01/11/23 13:38 01/11/23 13:38 01/11/23 13:38 01/11/23 13:38 Laboratory Results WBC 14.23 10^3/uL (4.4-10.8) H 01/11/23 13:15 RBC 4.18 10^6/uL (3.93-5.22) 01/11/23 13:15 Hgb 13.1 g/dL (11.2-15.7) 01/11/23 13:15 Hct 37.3 % (36.0-46.0) 01/11/23 13:15 MCV 89 fL (80-95) 01/11/23 13:15 MCH 31.3 pg (27.0-33.0) 01/11/23 13:15 MCHC 35.1 % (32.0-36.0) 01/11/23 13:15 RDW 12.6 % (11.7-14.6) 01/11/23 13:15 Plt Count 265 10^3/uL (130-400) 01/11/23 13:15 MPV 10.8 fL (8.0-11.0) 01/11/23 13:15 Sodium 136 mmol/L (136-145) 01/11/23 13:15 Potassium 3.6 mmol/L (3.5-5.1) 01/11/23 13:15 Chloride 103 mmol/L (98-107) 01/11/23 13:15 Carbon Dioxide 22.1 mmol/L (21.0-32.0) 01/11/23 13:15 Anion Gap 10.9 mmol/L (3-11) 01/11/23 13:15 BUN 8 mg/dL (7-18) 01/11/23 13:15 Creatinine 0.7 mg/dL (0.55-1.02) 01/11/23 13:15 Est GFR (CKD-EPI 2020) 126.90 (mL/min/1.73m2) 01/11/23 13:15 Glucose 96 mg/dL (74-106) 01/11/23 13:15 Calcium 9.2 mg/dL (8.5-10.1) 01/11/23 13:15 Total Bilirubin 0.2 mg/dL (0.2-1.0) 01/11/23 13:15 AST 20 U/L (15-37) 01/11/23 13:15 ALT 25 U/L (14-59) 01/11/23 13:15 Alkaline Phosphatase 149 U/L (46-116) H 01/11/23 13:15 Total Protein 7.9 g/dL (6.4-8.2) 01/11/23 13:15 Albumin 3.2 g/dL (3.4-5.0) L 01/11/23 13:15 Patient ABO/Rh O Positive 01/11/23 13:15 Antibody Screen NEGATIVE 01/11/23 13:15 Vital Signs Reviewed: Yes Objective Narrative Objective Narrative: Mild range BP at admission, CMP levels all WNL, likely pain response Pt coping well with increasingly progressive labor FOB and her mother present for support Subjective Interval history since last seen: Increasingly painful contractions, has been ambulating, wants to soak in the tub. Results Hemoglobin/Hematocrit: Hgb 13.1 g/dL (11.2-15.7) 01/11/23 13:15 Hct 37.3 % (36.0-46.0) 01/11/23 13:15 Abnormal Lab Findings: Abnormal Labs 01/11/23 01/11/23 13:15 13:15 WBC 14.23 H Alkaline Phosphatase 149 H Albumin 3.2 L
[2023-01-11] MEDS: Penicillin G POT. 3,000,000 UNITS in Normal Saline 50 ML 100 UNITS IVPB (17:00)
--- NOTE | 2023-01-11 17:24 | W.PM.OBNL1 ---
Date of service: 01/11/23 Time of Service: 17:24 Pelvic Exam Dilation: 8.5 Effacement (%): 100 station: +1 Contractions Monitor Mode: Palpation Contraction Frequency(min): q2-4 Intensity: Moderate/Strong Fetus A Monitor: Doppler Heart Rate Baseline: 145 FHR Rhythm: Regular Characteristics: Normal Amniotic Membrane Status: Ruptured Rupture Method: Artifical Amniotic Fluid: Clear Amount: moderate Date of Membrane Rupture: 01/11/23 Time of Membrane Rupture: 17:15 Assessment and Plan Assessment and plan (1) Uterine contractions: Status: Acute Assessment and plan: A: primipara, transition phase nml labor, FHT reassuring 8-9 cm with vtx +1, using nitrous P: LLP to rest and facilitate rotation Anticipate Objective Vital Signs Reviewed: Yes Objective Narrative Objective Narrative: Pt has been H&K on floor mat, in tub, on toilet, resting in bed Pt requests AROM, clear fluid returned FHT reassuring per intermittent doppler Subjective Interval history since last seen: low back pain and pelvic pressure, using nitrous, changing positions often
--- NOTE | 2023-01-11 18:19 | OBVDS_ITS ---
Date of service: 01/11/23 Time of Service: 18:20 OB Labor/ Delivery Information Baby A Delivery Delivery Method: Spontaneaous Presentation: Cephalic Cephalic Position: Vertex Vertex Position: Left Occipital Anterior Cord Description-Baby A: 3 Vessels Amniotic Fluid: Clear Estimated Blood Loss: 200 Delivery Outcome: Liveborn Transferred: Remains with Mother Note: Pt became fully dilated after AROM and LLP positioning, 2nd stage huddle completed, FHT's 140's per doptone and pt continued using nitrous as desired, excellent maternal efforts resulted in over intact perineum of a vigorous male infant, shoulders delivered easily and immediately to mother's arms, pitocin IV bolus started, cord clamped and cut by FOB, [place] placenta intact with 3VC, cord blood collected, fundus firm well below umbilicus and lochia is minimal, strong family bonding observed, apgars 9/9, weight 2240 gms. Providers Nurse Underwater Hunter: Hillary Rivera Nurse: Ashlie Gamboa Nurse: Elmira Vogt Labor/Delivery Information Number of Babies in Womb: 1 Steroids Given: None Reason Steroids Not Administered: N/A Group Beta Strep: Positive Antibiotics Administered: Yes Number of Doses of Antibiotics: 2 Rubella Status: Immune Blood Type: O+ Varicella Immunity: Nonimmune Maternal Complications: None Stages of Labor Onset of Labor Date: 01/11/23 Onset of Labor Time: 05:30 Complete Dilatation Date: 01/11/23 Complete Dilatation Time: 17:33 Labor - Stage 1 Duration: 12 hours and 3 minutes ROM Baby A: 01/11/23 ROM Baby A: 17:15 ROM Total Time- Baby A: [id number] Delivery Date-Baby A: 01/11/23 Delivery Time-Baby A: 18:02 Labor Stage 2 Duration: 29 minutes Placenta Delivery Date-Baby A: 01/11/23 Placenta Delivery Time-Baby A: 18:07 Labor-Stage 3 Duration: 5 minutes Total Length of Labor-Baby A: 12 hours and 32 minutes Placenta Cultured: No Placenta Status: Delivered Baby A Gender: Male Gestational Status: Term (39-41.6 wks) Gestational Age in Weeks/Days: 40 Weeks and 2 Days weight: 4 lb 15.014 oz Weight Comment: 2240 gms Score-1 Minute Interval(Baby A) Heart Rate-1 minute: 100 BPM or Greater Respiratory Effort- 1 minute: Spontaneous/Strong Cry Muscle Tone-1 minute: Active Movement Reflex Response-1 minute: Prompt Response Color-1 minute: Bluish Hands or Feet Total Score-1 minute: 9 Score-5 Minute Interval(Baby A) Heart Rate- 5 minute: 100 BPM or Greater Respiratory Effort-5 minute: Spontaneous/Strong Cry Muscle Tone-5 minute: Active Movement Reflex Response-5 minute: Prompt Response Color-5 minute: Bluish Hands or Feet Total Score- 5 minute: 9
[2023-01-11] MEDS: Oxytocin/Normal Saline 30 UNIT/500 ML BAG 167 UNITS IV (18:22)
[2023-01-12] MEDS: Acetaminophen 325 MG TAB 650 MG PO ×2 (04:24→14:24)
[2023-01-12 04:25] VITALS: BP 116/68; PULSE 64; RESP 16; TEMP 36.5
--- NOTE | 2023-01-12 05:52 | W.PM.OBPNV1 ---
Date of service: 01/12/23 Time of Service: 05:53 Assessment and Plan Assessment and plan (1) Term delivered: Status: Acute Assessment and plan: A: PPD#1, nml recovery off to a good start Pumping drops of colostrum adn feeding to baby Happy with experience P: Planning circumcision today Likely discharge tomorrow Desires POP's for BCM, will begin after 2 wk PP appt Schedule 2 & 6 wk PP appt's Subjective Subjective Patient comments: No complaints, Pain well controlled, Tolerating diet and Flatus present [place] baby status: Doing well, Nursing well, Rooming in and Strong Bonding Observed Exam Physical Exam Vital signs: Temp Pulse Resp BP Pulse Ox 97.7 F 64 16 116/68 99 01/12/23 04:25 01/12/23 04:25 01/12/23 04:25 01/12/23 04:25 01/11/23 18:35 Vital Signs Reviewed: Yes Constitutional Constitutional: no acute distress, average body habitus and cooperative HEENT Exam HEENT Exam: Normal Neck Exam Neck Exam: Normal Breast Exam Bilateral: Breast Exam: Normal and Soft Nipple Exam: Normal and Uninjured Respiratory Exam Respiratory Exam: Normal Cardiovascular Exam Cardiovascular Exam: Normal Abdominal Exam Abdomen: Other (soft and nontender) Fundal Exam Fundus: Below Umbilicus and Firm Rectal Exam Rectal Exam: Not Done Exam Patient deferred: external exam Extremities Exam Extremity Exam: Normal, Full ROM and Warm to Touch Back/Spine/Pelvis Exam Back Exam: Normal Skin Exam Skin Exam: Normal Neurological Exam Neurological Exam: Normal Psychiatric Exam Psychiatric Exam: Normal
[2023-01-12 08:00] VITALS: BP 124/80; PULSE 72; RESP 12; TEMP 36.6
[2023-01-12] MEDS: Ibuprofen 600 MG TAB PO (14:25)
[2023-01-12 17:30] VITALS: BP 117/79; PULSE 61; RESP 20; TEMP 36.8
[2023-01-12 20:00] VITALS: BP 110/70; PULSE 67; RESP 20; TEMP 36.8; O2SAT 67
[2023-01-13 08:30] VITALS: BP 122/79; PULSE 76; RESP 16; TEMP 36.8; O2SAT 98
[2023-01-13] MEDS: Docusate Sodium 100 MG CAP PO (08:38)
--- NOTE | 2023-01-13 11:05 | W.PM.OBPNV1 ---
Date of service: 01/13/23 Time of Service: 11:05 Assessment and Plan Assessment and plan (1) Term delivered: Status: Acute Assessment and plan: A: Nml PPD#2 is going well P: Discharge is planned for today Declines Varicella vaccine Plans POP's for BCM F/up at 2 & 6 wks Written instructions reviewed and given to pt Subjective Subjective Patient comments: No complaints, Pain well controlled, Tolerating diet and Flatus present Patient's Mood: happy [place] baby status: Doing well, Nursing well, Rooming in and Strong Bonding Observed [place] feeding status: Exclusively breast feeding Exam Physical Exam Vital signs: Temp Pulse Resp BP Pulse Ox 98.2 F 76 16 122/79 98 01/13/23 08:30 01/13/23 08:30 01/13/23 08:30 01/13/23 08:30 01/13/23 08:30 Vital Signs Reviewed: Yes Constitutional Constitutional: no acute distress, average body habitus and cooperative HEENT Exam HEENT Exam: Normal Neck Exam Neck Exam: Normal Breast Exam Bilateral: Breast Exam: Normal and Soft Respiratory Exam Respiratory Exam: Normal Cardiovascular Exam Cardiovascular Exam: Normal Abdominal Exam Abdomen: Other (soft and nontender) Fundal Exam Fundus: Below Umbilicus and Firm Rectal Exam Rectal Exam: Not Done Exam Patient deferred: external exam Extremities Exam Extremity Exam: Normal, Full ROM and Warm to Touch Back/Spine/Pelvis Exam Back Exam: Normal Skin Exam Skin Exam: Normal Neurological Exam Neurological Exam: Normal Psychiatric Exam Psychiatric Exam: Normal Hemorrrhage Note IV Site Right Wrist: IV Catheter Gauge: 20
--- NOTE | 2023-01-13 11:45 | DSE_ITS ---
Date of service: 01/13/23 Time of Service: 11:45 DS: Diagnosis Discharge Diagnosis (1) Term delivered: Status: Acute Discharge Plan Disposition Patient Disposition: Home Condition: Good Discharge Details Reason For Visit: NST Admit Date/Time: 01/11/23 13:15 Admit Provider: Hillary Rivera Attending Provider: Hillary Rivera Primary Care Provider: Coni Oliveros Hospital Course Hospital Course: , nml course, discharge on 2nd PP day Home Meds and New Rx's Prescriptions: No Action prenat.vits,danae,[id number] Tablet 1 tab PO DAILY pantoprazole [Protonix] 20 mg tablet,delayed release (DR/EC) 20 mg PO DAILY Qty: 90 2RF Discharge Instructions Additional Instructions: Please keep your 2 & 6 wks appointments with the midwives, call for any and all concerns. Stand Alone Forms: BC Instructions, BC Post Vaginal Deliver Activity:: Activity as Tolerated Equipment/Supplies:: No Equipment Needed Diet:: Normal Diet OB:DS Summary Summary Vaginal Delivery Method: Spontaneaous Contraception Discussed Contraception Discussed: Yes Contraceptive Plan: Control Pill/Patch, [place] Infant Gender-Baby A: Male weight: 4 lb 15.014 oz Status at Discharge Functional status at discharge: independent ambulation Overall status at discharge: patient is progressing back to baseline Mental Status: mental status grossly normal Speech and Movement: speech and movement normal and speech clear Mood: congruent mood Affect: normal affect Exam Physical Exam Vital signs: Temp Pulse Resp BP Pulse Ox 98.2 F 76 16 122/79 98 01/13/23 08:30 01/13/23 08:30 01/13/23 08:30 01/13/23 08:30 01/13/23 08:30 Constitutional Constitutional: no acute distress, average body habitus and cooperative HEENT Exam HEENT Exam: Normal Neck Exam Neck Exam: Normal Breast Exam Bilateral: Breast Exam: Normal and Soft Respiratory Exam Respiratory Exam: Normal Cardiovascular Exam Cardiovascular Exam: Normal Abdominal Exam Abdomen: Other (soft and nontender) Fundal Exam Fundus: Below Umbilicus and Firm Rectal Exam Rectal Exam: Not Done Exam Patient deferred: external exam Extremities Exam Extremity Exam: Normal, Full ROM and Warm to Touch Back/Spine/Pelvis Exam Back Exam: Normal Skin Exam Skin Exam: Normal Neurological Exam Neurological Exam: Normal Psychiatric Exam Psychiatric Exam: Normal PFSH All Active Problems (Updated 01/13/23 @ 11:43 by Hillary Rivera) Term delivered (Acute) Maternal varicella, non-immune (Acute) Marijuana use during (Acute) Chronic GERD (Acute) Depression (Chronic) Heart murmur (Acute) Learning difficulty (Chronic) IEP signed 05/24/18 Medical History (Updated 01/13/23 @ 11:43 by Hillary Rivera) Complete miscarriage Group B Streptococcus carrier state affecting Learning difficulty Pelvic pain 04/30/22. + upt in [facility] ED. Serial hCG normal rise. Plan viability u/s in May 2022. Uterine contractions Family History (Updated 06/26/22 @ 13:17 by Jessica Matias CNM) Mother Mental disorder anxiety/depression Gestational diabetes Father Essential hypertension Other Diabetes MGM, MGF, mat uncles Alcohol abuse MGF Essential hypertension mat uncles, PGF, MGF Personal history of malignant neoplasm mat side Heart disease PGF, MGF Hyperlipidemia MGF Mental disorder MGM, MGF, mat uncles- anxiety/depression Myocardial infarction PGF, MGF Stroke MGF Maternal Grandmother Thyroid disease Social History Smoking/Tobacco Use Status: Never Smoking risk assessment performed?: Yes Alcohol Intake: current Alcohol Intake frequency: holidays/special occasions only Alcohol type: hard liquor Drug use: Never Substance use type: marijuana Duration: 45-60 minutes/day Frequency: daily Seatbelt use: always Helmet use: No Fire extinguisher in home: Yes Carbon monox detector in home: Yes Firearms in home: No Do you feel safe at home: Yes Do you feel safe in your relationship?: Yes Female Reproductive History Menstrual Age of Menarche: 16 Duration of menses: 6-7 days control method: none and implanted History History 2 Para 0 Hx # Term Pregnancies 0 Multiple births 0 Hx # Pregnancies 0 Ectopic pregnancies 0 AB induced 0 Hx Number of Living Children 0 AB spontaneous 1 Past Pregnancies Del. Date GA/Weeks # Preg Succ Route Wgt Sex Labor Lgth Anesth esia Location [facility] 02/26/22 7 No No Delivery Date: 02/26/22 Last Updated by: Rosy Pozo LPN miscarriage DS: Data Vitals/I&O Vitals and I&O: Vital Signs Temperature 98.2 F 01/13/23 08:30 Temperature 97.9 F 01/11/23 13:38 Temperature Source Oral 01/13/23 08:30 Pulse 76 01/13/23 08:30 Pulse 103 01/11/23 13:38 Pulse Rhythm Regular 01/12/23 20:00 Respiratory Rate 16 01/13/23 08:30 Respiratory Depth Normal 01/12/23 20:00 Blood Pressure 122/79 01/13/23 08:30 Blood Pressure 133/90 01/11/23 13:38 Blood Pressure Mean 93 01/13/23 08:30 Pulse Oximetry 98 01/13/23 08:30 Oxygen Delivery Method Room Air 01/11/23 13:38 Oxygen Flow Rate 0 01/11/23 13:38 Pain Level 0 01/13/23 08:30
== END 2023-01-13 15:40 | disposition home or self-care (01) | DRG 807 ==
LOC: OBS 20:58 → BCD 01-12 13:09
PROVIDERS: Admitting Provider Advanced Practice Midwife; PCP Nurse Practitioner Family; Visit Provider Advanced Practice Midwife
DX: O99.824 Streptococcus B carrier state complicating childbirth (principal); Z37.0 Single live birth; O99.324 Drug use complicating childbirth; Z3A.40 40 weeks gestation of pregnancy; O99.62 Diseases of the digestive system complicating childbirth; F12.90 Cannabis use, unspecified, uncomplicated; O99.344 Other mental disorders complicating childbirth; F32.A Depression, unspecified; K21.9 Gastro-esophageal reflux disease without esophagitis; F81.0 Specific reading disorder
CPT/HCPCS: 80053; 85027; 86850; 86900; 86901; 59025; J2540

== ENCOUNTER 2023-02-23 15:27 | Outpatient (REF) | payer MEDICAID, SELFPAY ==
--- NOTE | 2023-02-23 14:00 | PAPFT_PTH ---
PATIENT: Simone Jackson LOC: [facility] U#:[id number] AGE/SX: 23/F ROOM: RE02/23/[address]: Hillary Rivera CNM : 2000 BED: DIS: 02/23/2023 SPEC #: [id number] RECD: 02/23/23 18:21 STATUS: GERRY RERey #: [id number] ROLAN: 02/23/23 14:[address]: Hillary Rivera DEPT: [facility] Cytology RECD BY: Cherelle Rosas ENTERED: 02/23/23 18:21 SP TYPE: PAPFT OTHR DR: KEITH ESPAÑA Tissues: 1 - CX/ENDOCX FOR PAP SMEARS Procedures: PAP THIN PREP/[facility] Screening Comments: [id number]
== END 2023-02-23 15:28 | disposition home or self-care (01) ==
LOC: LBN 15:27
PROVIDERS: PCP Nurse Practitioner Family; Visit Provider Advanced Practice Midwife
DX: Z12.4 Encounter for screening for malignant neoplasm of cervix (principal)
CPT/HCPCS: 88142

== ENCOUNTER 2023-03-17 17:43 | Outpatient (REF) | payer MEDICAID, SELFPAY | END 2023-03-17 17:44 | disposition home or self-care (01) | LOC: LBN 17:43 | PROVIDERS: PCP Nurse Practitioner Family; Visit Provider Nurse Practitioner Family | DX: J02.9 Acute pharyngitis, unspecified (principal) | CPT/HCPCS: 87070 ==

== ENCOUNTER 2023-08-28 13:16 | Outpatient (REF) | payer MEDICAID, SELFPAY | END 2023-08-28 13:17 | disposition home or self-care (01) | LOC: NCHCN 13:16 | PROVIDERS: PCP Nurse Practitioner Family; Visit Provider Family Medicine | DX: J02.9 Acute pharyngitis, unspecified (principal) | CPT/HCPCS: 87070 ==

== ENCOUNTER 2023-08-28 16:21 | Emergency (ER) | payer MEDICAID, SELFPAY ==
[2023-08-28 16:25] VITALS: BP 117/71; PULSE 95; RESP 17; TEMP 36.4; O2SAT 98
--- NOTE | 2023-08-28 16:35 | ED.GENADUL_ITS ---
HPI General Date/Time Provider Initiated Documentation: 08/28/23 16:35 . Related Data Home Medications Medication Instructions Recorded Confirmed prenat.vits,danae,[id number] 1 tab PO DAILY 06/09/22 08/28/23 norethindrone (contraceptive) 0.35 0.35 mg PO DAILY #84 tabs 01/27/23 08/28/23 mg tablet (Zulema-BE) nystatin 100,000 unit/mL oral 1 ml PO DAILY thrush on nipple 07/24/23 08/28/23 suspension #250 mL Previous Rx's Medication Instructions Recorded norethindrone (contraceptive) 0.35 0.35 mg PO DAILY #84 tabs 01/27/23 mg tablet (Zulema-BE) nystatin 100,000 unit/mL oral 1 ml PO DAILY thrush on nipple 07/24/23 suspension #250 mL Allergies Allergy/AdvReac Type Severity Reaction Status Date / Time No Known Allergies Allergy Verified 08/28/23 16:34 General Stated Complaint: GenMedical LYUDMILA: 4 Course Vital Signs Vital signs: Vital Signs Temperature 36.4 C L 08/28/23 16:25 Pulse 95 H 08/28/23 16:25 Respiratory Rate 17 08/28/23 16:25 Blood Pressure 117/71 08/28/23 16:25 Pulse Oximetry 98 08/28/23 16:25 Temperature 36.4 C L 08/28/23 16:25 Temperature Source Temporal Artery Scan 08/28/23 16:25 Pulse 95 H 08/28/23 16:25 Respiratory Rate 17 08/28/23 16:25 Respiratory Effort Normal, Non-Labored 08/28/23 16:33 Blood Pressure 117/71 08/28/23 16:25 Pulse Oximetry 98 08/28/23 16:25 Oxygen Delivery Method Room Air 08/28/23 16:25 Oxygen Flow Rate 0 08/28/23 16:25 Pain Level 8 08/28/23 16:25 Medical Decision Making Quality:SDOH Health Related Social Needs: No Data to Display PFSH All Active Problems (Updated 02/23/23 @ 14:21 by Hillary Rivera) care and examination of lactating mother (Acute) Chronic GERD (Acute) Depression (Chronic) Heart murmur (Acute) Learning difficulty (Chronic) IEP signed 05/24/18 Medical History (Updated 02/23/23 @ 14:21 by Hillary Rivera) Term delivered Uterine contractions Group B Streptococcus carrier state affecting Maternal varicella, non-immune Marijuana use during Complete miscarriage Pelvic pain 04/30/22. + upt in [facility] ED. Serial hCG normal rise. Plan viability u/s in May 2022. Learning difficulty Family History Mother Mental disorder anxiety/depression Gestational diabetes Father Essential hypertension Other Diabetes MGM, MGF, mat uncles Alcohol abuse MGF Essential hypertension mat uncles, PGF, MGF Personal history of malignant neoplasm mat side Heart disease PGF, MGF Hyperlipidemia MGF Mental disorder MGM, MGF, mat uncles- anxiety/depression Myocardial infarction PGF, MGF Stroke MGF Maternal Grandmother Thyroid disease Social History Smoking/Tobacco Use Status: Never Smoking risk assessment performed?: Yes Alcohol Intake: current Alcohol Intake frequency: holidays/special occasions only Alcohol type: hard liquor Drug use: Never Substance use type: marijuana Duration: 45-60 minutes/day Frequency: daily Seatbelt use: always Helmet use: No Fire extinguisher in home: Yes Carbon monox detector in home: Yes Firearms in home: No Do you feel safe at home: Yes Do you feel safe in your relationship?: Yes Female Reproductive History Menstrual Age of Menarche: 16 Duration of menses: 6-7 days control method: none and implanted History History 2 Para 1 Hx # Term Pregnancies 1 Multiple births 0 Hx # Pregnancies 0 Ectopic pregnancies 0 AB induced 0 Hx Number of Living Children 1 AB spontaneous 1 Past Pregnancies Del. Date GA/Weeks # Preg Succ Route Wgt Sex Labor Lgth Anesth esia Location Prov Complic 02/26/22 7 No No 01/11/23 40 No Yes vaginal 2239.612 g Male 12hrs 32 min [facility] Delivery Date: 02/26/22 Last Updated by: Rosy Pozo LPN miscarriage Delivery Date: 01/11/23 Last Updated by: RICHIE De León Discharge Plan Discharge Details Chief Complaint: GenMedical Primary Care Provider: Coni Oliveros ED Provider: Yash Be Home Meds and New Rx's Prescriptions: No Action norethindrone (contraceptive) [Zulema-BE] 0.35 mg tablet 0.35 mg PO DAILY Qty: 84 2RF Hold Instructions: patient state she is not taking anything prenat.vits,danae,[id number] Tablet 1 tab PO DAILY nystatin 100,000 unit/mL suspension 1 ml PO DAILY Qty: 250 0RF Rx Instructions: apply to nipples after feeding twice daily
[2023-08-28 16:42] VITALS: BP 117/62; PULSE 92; RESP 17; TEMP 36.4; O2SAT 98
--- NOTE | 2023-08-28 16:49 | W.ED.GENAD ---
HPI General Mode of arrival: ambulatory. Date/Time Provider Initiated Documentation: 08/28/23 16:35. Limitations to Documentation: no limitations. Information obtained by: patient. HPI Narrative: 23-year-old female presents with chief complaint of sore throat. Patient notes right-sided sore throat the past 1 day. She also notes associated redness to her right eye. She has bilateral ear discomfort. Patient was seen at PCPs office today and had negative COVID testing as well as negative rapid strep testing. She was prescribed ophthalmologic antibiotic. She was told she was good to be given a dose of oral steroid which she did not receive. She notes continued pain. No associated fever. Related Data Home Medications Medication Instructions Recorded Confirmed prenat.vits,danae,[id number] 1 tab PO DAILY 06/09/22 08/28/23 norethindrone (contraceptive) 0.35 0.35 mg PO DAILY #84 tabs 01/27/23 08/28/23 mg tablet (Zulema-BE) nystatin 100,000 unit/mL oral 1 ml PO DAILY thrush on nipple 07/24/23 08/28/23 suspension #250 mL polymyxin B sulfate 10,000 ophthalmic (eye) 08/28/23 unit-trimethoprim 1 mg/mL eye drops Previous Rx's Medication Instructions Recorded norethindrone (contraceptive) 0.35 0.35 mg PO DAILY #84 tabs 01/27/23 mg tablet (Zulema-BE) nystatin 100,000 unit/mL oral 1 ml PO DAILY thrush on nipple 07/24/23 suspension #250 mL Allergies Allergy/AdvReac Type Severity Reaction Status Date / Time No Known Allergies Allergy Verified 08/28/23 16:34 General Stated Complaint: GenMedical LYUDMILA: 4 Review of Systems All systems reviewed & are unremarkable except as noted in HPI and below Constitutional Constitutional: Denies fever(s) ENT Ears, Nose, Mouth, and Throat: Reports as per HPI Exam Const General: cooperative and no acute distress HENMT Ears: external ears normal and TM's normal bilaterally General nose exam: external nose normal Face and sinus: normal facial exam Mouth: moist mucous membranes Throat: uvula midline, no peritonsillar masses and posterior oropharynx abnormal erythema (b/l) and exudates (right) Other: No stridor, no trismus Eyes Conjunctivae: conjunctival abnormality right conjunctival injection; without discharge Sclera: normal sclerae Pupils: PERRL EOM: EOM intact bilaterally Neck Neck: trachea midline, supple and lymphadenopathy (Right anterior cervical) Resp Auscultation: clear to auscultation bilaterally, no rales, no rhonchi and no wheezes Cardio Rate: regular rate and not tachycardic Rhythm: regular rhythm GI Palpation: no masses and nontender Skin General skin exam: no rashes or lesions noted Neuro General: patient alert, patient awake and tone normal Course Vital Signs Vital signs: Vital Signs Temperature 36.4 C L 08/28/23 16:25 Pulse 95 H 08/28/23 16:25 Respiratory Rate 17 08/28/23 16:25 Blood Pressure 117/71 08/28/23 16:25 Pulse Oximetry 98 08/28/23 16:25 Temperature 36.4 C L 08/28/23 16:42 Temperature Source Temporal Artery Scan 08/28/23 16:42 Pulse 92 H 08/28/23 16:42 Respiratory Rate 17 08/28/23 16:42 Respiratory Effort Normal, Non-Labored 08/28/23 16:42 Respiratory Depth Normal 08/28/23 16:42 Respiratory Pattern Normal 08/28/23 16:42 Blood Pressure 117/62 08/28/23 16:42 Pulse Oximetry 98 08/28/23 16:42 Oxygen Delivery Method Room Air 08/28/23 16:42 Oxygen Flow Rate 0 08/28/23 16:25 Pain Level 8 08/28/23 16:25 Medical Decision Making 23-year-old female here with 1 day of sore throat and right eye redness. Patient seen by PCP today and had negative COVID test as well as negative rapid strep. She is here with continued pain worse right throat. She has no stridor or trismus. Patient does have conjunctivitis right eye. She has no pain with extraocular eye movements and no periorbital swelling or inflammation. Suspect viral infection. Plan to treat pharyngitis with Decadron. Plan to continue treating conjunctivitis with ophthalmologic antibiotic as prescribed by PCP earlier today. Treatment plan was discussed with the patient. Plan for outpatient follow-up with PCP. Disposition decision was made weighing the risks and benefits of hospitalization versus outpatient treatment, the risk for further decompensation, and the patient's wishes. The patient was stable and requested discharge. Prior to discharge, my usual and customary return precautions were reviewed with the patient - this included follow-up instructions and reason to return to the emergency department if condition worsens, does not improve as expected, or other new concerns arise. Quality:[facility] Health Related Social Needs: No Data to Display PFSH All Active Problems (Updated 08/28/23 @ 16:58 by Yash Be MD) Acute pharyngitis (Acute) Acute conjunctivitis, right eye (Acute) care and examination of lactating mother (Acute) Chronic GERD (Acute) Depression (Chronic) Heart murmur (Acute) Learning difficulty (Chronic) IEP signed 05/24/18 Medical History Term delivered Uterine contractions Group B Streptococcus carrier state affecting Maternal varicella, non-immune Marijuana use during Complete miscarriage Pelvic pain 04/30/22. + upt in [facility] ED. Serial hCG normal rise. Plan viability u/s in May 2022. Learning difficulty Family History Mother Mental disorder anxiety/depression Gestational diabetes Father Essential hypertension Other Diabetes MGM, MGF, mat uncles Alcohol abuse MGF Essential hypertension mat uncles, PGF, MGF Personal history of malignant neoplasm mat side Heart disease PGF, MGF Hyperlipidemia MGF Mental disorder MGM, MGF, mat uncles- anxiety/depression Myocardial infarction PGF, MGF Stroke MGF Maternal Grandmother Thyroid disease Social History Smoking/Tobacco Use Status: Never Smoking risk assessment performed?: Yes Alcohol Intake: current Alcohol Intake frequency: holidays/special occasions only Alcohol type: hard liquor Drug use: Never Substance use type: marijuana Duration: 45-60 minutes/day Frequency: daily Seatbelt use: always Helmet use: No Fire extinguisher in home: Yes Carbon monox detector in home: Yes Firearms in home: No Do you feel safe at home: Yes Do you feel safe in your relationship?: Yes Female Reproductive History Menstrual Age of Menarche: 16 Duration of menses: 6-7 days control method: none and implanted History History 2 Para 1 Hx # Term Pregnancies 1 Multiple births 0 Hx # Pregnancies 0 Ectopic pregnancies 0 AB induced 0 Hx Number of Living Children 1 AB spontaneous 1 Past Pregnancies Del. Date GA/Weeks # Preg Succ Route Wgt Sex Labor Lgth Anesthesia Location Prov Complic 02/26/22 7 No No 01/11/23 40 No Yes vaginal 2239.612 g Male 12hrs 32 min [facility] Delivery Date: 02/26/22 Last Updated by: Rosy Pozo LPN miscarriage Delivery Date: 01/11/23 Last Updated by: RICHIE De Leónhaily Louishan Chidi Discharge Plan Disposition Patient Disposition: Home Condition: Stable Discharge Details Chief Complaint: GenMedical Clinical Impression: Acute conjunctivitis, right eye, Acute pharyngitis Primary Care Provider: Coni Oliveros ED Provider: Yash Be Home Meds and New Rx's Prescriptions: No Action norethindrone (contraceptive) [Zulema-BE] 0.35 mg tablet 0.35 mg PO DAILY Qty: 84 2RF Hold Instructions: patient state she is not taking anything prenat.vits,danae,mwd-grib-kwwkj Tablet 1 tab PO DAILY nystatin 100,000 unit/mL suspension 1 ml PO DAILY Qty: 250 0RF Rx Instructions: apply to nipples after feeding twice daily Discharge Instructions Instructions: Pharyngitis (ED), Conjunctivitis (ED) Additional Instructions: Please continue eyedrops as prescribed. Please take ibuprofen over the counter. Take 400mg by mouth every 6 hours as needed for pain. Please contact your primary care physician to arrange follow-up. Return to the ER immediately for any worsening or new concerning symptoms. Referrals: Coni Oliveros [Primary Care Provider] -
[2023-08-28] MEDS: Dexamethasone 10 MG/ML VIAL PO (16:58)
== END 2023-08-28 17:40 | disposition home or self-care (01) ==
LOC: ER 16:59
PROVIDERS: Emergency Provider Student in an Organized Health Care Education/Training Program; PCP Nurse Practitioner Family
DX: J02.9 Acute pharyngitis, unspecified (principal); H10.9 Unspecified conjunctivitis
CPT/HCPCS: 99283; J1100

== ENCOUNTER 2023-10-11 19:54 | Emergency (ER) | payer MEDICAID, SELFPAY ==
--- NOTE | 2023-10-11 19:58 | W.ED.GENAD ---
Discharge Plan Disposition Patient Disposition: Home Discharge Details Clinical Impression: Upper respiratory infection, viral Primary Care Provider: Coni Oliveros ED Provider: Ferny Rey Home Meds and New Rx's Prescriptions: Continued nystatin 100,000 unit/mL suspension 1 ml mucous membrane TID Qty: 60 0RF Rx Instructions: apply to affected area 3 times daily, allow to air dry polymyxin B sulf-trimethoprim 10,000 unit- 1 mg/mL drops ophthalmic (eye) Discharge Instructions Instructions: Upper Respiratory Infection (ED) Additional Instructions: You were seen in the emergency department for your runny nose and cough. Your x-ray showed no sign of any pneumonias. Your ear showed no sign of any ear infection. Please continue taking your previously prescribed medications. Please return to the emergency department if you develop worsening shortness of breath chest pain or any difficulty breathing. For your pain please take medications as follows: 1. Take acetaminophen (Tylenol), 1,000 mg (two 500 mg tabs) every 6 hours Discharge Data Discharge Date/Time-TO BE ENTERED AT DEPARTURE: 10/11/23 21:49 HPI General Date/Time Provider Initiated Documentation: 10/11/23 19:58. HPI Narrative: MDM This is an overall well-appearing mildly tachycardic but normothermic previously healthy 23-year-old female with coarse breath sounds concerning for the possibility of pneumonia. Patient has been tolerating p.o. and appears well-hydrated so we will defer laboratory evaluation. No pain out of proportion to suggest necrotizing soft tissue infection. No shortness of breath to suggest PE. No abdominal pain so doubt appendicitis. No dysuria or frequency so doubt UTI. No rash to chest to suggest zoster. Patient has no signs of oral thrush. No falls to suggest rib fracture. Not altered to suggest encephalitis. No nuchal rigidity to suggest meningitis. Good ROM in neck so doubt RPA. Patient is more than 6 weeks and as result my suspicion for preeclampsia is low. Handling secretions so low suspicion for epiglottitis. Nontoxic so doubt bacterial tracheitis. Patient did subsequently complain of left ear pain. She had a small effusion but no bulging TM, suspicion is low for acute otitis media so will elect to observe patient off antibiotics. 10/12 Late charting due to patient care. Patient had a reassuring CXR w/no infiltrate. Her tachycardia resolved without intervention. We discussed PCP follow up later this week and return to the ED for worsening cough, chest pain or any difficulty breath. Patient understood her return indications and was discharged with an empiric trial of expectant outpatient follow up. Chronic conditions affecting the care of the patient: N/A History obtained from an outside historian: N/A External record review: N/A Diagnostic interpretations performed by me: Per my independent interpretation chest x-ray shows: No acute cardiopulmonary process Medications: Acetaminophen Social determinants of health affecting disposition: N/A Management discussed with: N/A Treatment/interventions considered: N/A Response to therapies provided: N/A HPI This is a previously healthy 23-year-old female up-to-date with immunizations arriving to the emergency department via private vehicle in the setting of cough and runny nose. Patient reportedly has intermittently had hot and cold flashes. She took DayQuil 3 times a day. She said that occasionally when she coughs she develops chest pain. She has been taking no medications. She denies abdominal pain. She says that her cough is productive of dark-colored sputum. Patient denies tobacco use. No shortness of breath. No chest pain. Exam General: Well-appearing in no acute distress speaking in complete sentences. Head: Normocephalic, atraumatic. Eye: Extraocular eye movements intact. No conjunctival injection. No scleral icterus. Ear, nose, mouth, throat: Grossly normal inspection. Normal voice, handling secretions normally. No signs of thrush. Uvula midline. Good ROM in neck. Small left TM effusion. Not erythematous nor bulging. Neck: Trachea midline. Cardiovascular: Well-perfused distal extremities. Rapid regular rate. Respiratory: Nonlabored respiration. Coarse breath sounds bilaterally. No wheezes. Gastrointestinal: Nondistended abdomen. Musculoskeletal: No edema. Moving all 4 extremities spontaneously. Skin: Normal for age and race, grossly normal temperature and turgor. No acute rash. Neurologic: Alert and appropriate, no apparent acute deficits. Psychiatric: Mood and manner are appropriate. Grooming and personal hygiene are appropriate. Related Data Home Medications Medication Instructions Recorded Confirmed polymyxin B sulfate 10,000 ophthalmic (eye) 08/28/23 unit-trimethoprim 1 mg/mL eye drops nystatin 100,000 unit/mL oral 1 ml mucous membrane TID #60 mL 10/09/23 suspension Previous Rx's Medication Instructions Recorded nystatin 100,000 unit/mL oral 1 ml mucous membrane TID #60 mL 10/09/23 suspension Allergies Allergy/AdvReac Type Severity Reaction Status Date / Time No Known Allergies Allergy Verified 10/11/23 20:04 General LYUDMILA: 4 Medical Decision Making Quality:SDOH Health Related Social Needs: No Data to Display PFSH All Active Problems (Updated 10/11/23 @ 21:42 by Ferny Rey MD) Upper respiratory infection, viral (Acute) Nipple infection associated with (Acute) care and examination of lactating mother (Acute) Chronic GERD (Acute) Depression (Chronic) Heart murmur (Acute) Learning difficulty (Chronic) IEP signed 05/24/18 Medical History Term delivered Uterine contractions Group B Streptococcus carrier state affecting Maternal varicella, non-immune Marijuana use during Complete miscarriage Pelvic pain 04/30/22. + upt in [facility] ED. Serial hCG normal rise. Plan viability u/s in May 2022. Learning difficulty Family History Mother Mental disorder anxiety/depression Gestational diabetes Father Essential hypertension Other Diabetes MGM, MGF, mat uncles Alcohol abuse MGF Essential hypertension mat uncles, PGF, MGF Personal history of malignant neoplasm mat side Heart disease PGF, MGF Hyperlipidemia MGF Mental disorder MGM, MGF, mat uncles- anxiety/depression Myocardial infarction PGF, MGF Stroke MGF Maternal Grandmother Thyroid disease Social History Smoking/Tobacco Use Status: Never Smoking risk assessment performed?: Yes Alcohol Intake: current Alcohol Intake frequency: holidays/special occasions only Alcohol type: hard liquor Drug use: Never Substance use type: marijuana Duration: 45-60 minutes/day Frequency: daily Seatbelt use: always Helmet use: No Fire extinguisher in home: Yes Carbon monox detector in home: Yes Firearms in home: No Do you feel safe at home: Yes Do you feel safe in your relationship?: Yes Female Reproductive History Menstrual Age of Menarche: 16 Duration of menses: 6-7 days control method: none and implanted History History 2 Para 1 Hx # Term Pregnancies 1 Multiple births 0 Hx # Pregnancies 0 Ectopic pregnancies 0 AB induced 0 Hx Number of Living Children 1 AB spontaneous 1 Past Pregnancies Del. Date GA/Weeks # Preg Succ Route Wgt Sex Labor Lgth Anesthesia Location Prov Complic 02/26/22 7 No No 01/11/23 40 No Yes vaginal 2239.612 g Male 12hrs 32 min [facility] Delivery Date: 02/26/22 Last Updated by: Rosy Pozo LPN miscarriage Delivery Date: 01/11/23 Last Updated by: RICHIE De León
[2023-10-11 20:02] VITALS: BP 139/88; PULSE 110; RESP 18; TEMP 37.4; O2SAT 97
--- NOTE | 2023-10-11 20:15 | DI.RAD_ITS ---
Exam(s) XR CHEST 2V PA LATERAL EXAM: XR CHEST 2V PA LATERAL CLINICAL HISTORY: Shortness of breath cough TECHNIQUE: 2D digital imaging was performed. Two views. COMPARISON: No exams were available for comparison FINDINGS: HEART: Normal size. Aorta: Not dilated. PULMONARY VASCULATURE: Normal. LUNGS: Question of vague patchy infiltrate above the left diaphragm. PLEURAL SPACE: No pleural effusion or pneumothorax. BONE:Scoliosis. Soft tissues: Unremarkable. IMPRESSION: Question left lower lobe infiltrate. DATA REPOSITORY: RADIATION DOSE DELIVERED:
[2023-10-11 20:52] VITALS: PULSE 98
[2023-10-11] MEDS: Acetaminophen 500 MG TAB 1000 MG PO (20:59)
--- NOTE | 2023-10-11 21:39 | DI.VRAD_ITS ---
PROCEDURE INFORMATION: Exam: XR Chest Exam date and time: 10/11/2023 8:50 PM Age: 23 years old Clinical indication: Cough and shortness of breath; Patient HX: Shortness of breath cough TECHNIQUE: Imaging protocol: Radiologic exam of the chest. Views: 2 views. COMPARISON: CT ABDOMEN PELVIS W 04/30/2022 11:24 AM FINDINGS: Lungs: Unremarkable. No consolidation. Pleural spaces: Unremarkable. No pleural effusion. No pneumothorax. Heart/Mediastinum: Unremarkable. No cardiomegaly. Bones/joints: Thoracic scoliosis. No acute skeletal findings IMPRESSION: 1. No acute findings. 2. Clear lung watts and pleural space. 3. Thoracic spine scoliosis. Dictated and Authenticated by: Per Mcgovern MD. Ordering:OLGA Isaacs MD
== END 2023-10-11 21:49 | disposition home or self-care (01) ==
PROVIDERS: Emergency Provider Emergency Medicine; PCP Nurse Practitioner Family
DX: J06.9 Acute upper respiratory infection, unspecified (principal); B97.89 Other viral agents as the cause of diseases classified elsewhere
CPT/HCPCS: 81025; 99283; 71046

== ENCOUNTER 2024-05-18 01:25 | Outpatient (CLI) | payer MEDICAID, SELFPAY ==
[2024-05-18 09:51] LABS: Panorama Kit Sent via Fed Ex
[2024-05-18 10:03] LABS: Abs Immature Grans 0.03 10^3/uL (0.0-0.06); Absolute Basophil Count 0.03 10^3/uL (0.0-0.2); Absolute Eosinophil Count 0.05 10^3/uL (0.0-0.7); Absolute Lymphocyte Count 1.94 10^3/uL (1.2-3.4); Absolute Monocyte Count 0.76 10^3/uL (0.1-0.8); Absolute Neutrophil Count 6.89 10^3/uL (1.2-6.7); Basophils % 0.3 %; Eosinophils % 0.5 %; HGB 12.7 g/dL (11.2-15.7); Immature Grans % 0.3 %; MCH 28.6 pg (27.0-33.0); MCHC 34.3 % (32.0-36.0); MCV 83 fL (80-95); MPV 10.1 fL (8.0-11.0); Monocytes % 7.8 %; Neutrophils % 71.1 %; Platelet Count 323 10^3/uL (130-400); RBC 4.44 10^6/uL (3.93-5.22); RDW 12.9 % (11.7-14.6); RDW-SD 39.3 fL
[2024-05-19 09:38] LABS: HIV-1/2 Ag & Ab Screen Negative (Negative)
[2024-05-19 10:27] LABS: Rubella IgG Ab (UVM) Positive (See Note)
[2024-05-19 10:28] LABS: Varicella IgG Antibody Negative (See Note)
[2024-05-19 14:47] LABS: Hepatitis B Surface Ag Negative (Negative)
[2024-05-19 15:40] LABS: Hepatitis C Ab w Rflx HCV PCR Negative (Negative)
[2024-05-20 19:19] LABS: Syphilis IgG w/Reflex Nonreactive (Nonreactive)
== END 2024-05-18 01:26 | disposition home or self-care (01) ==
LOC: LBO 01:25
PROVIDERS: Visit Provider Advanced Practice Midwife
DX: Z34.91 Encounter for supervision of normal pregnancy, unspecified, first trimester (principal); Z3A.01 Less than 8 weeks gestation of pregnancy
CPT/HCPCS: 36415; 86787; 86803; 86850; 86900; 86901; 87340; 87389; 85025; 86762; 86780

== ENCOUNTER 2024-05-18 09:46 | Outpatient (REF) | payer MEDICAID, SELFPAY ==
[2024-05-18 12:36] LABS: *AMPHETAMINES SCREEN URINE Negative (Negative); *BARBITURATES SCREEN URINE Negative (Negative); *BENZODIAZEPINES SCREEN URINE Negative (Negative); Cannabinoids THC Negative (Negative); Cocaine Screen,Urine Negative (Negative); METHADONE URINE SCREEN Negative (Negative); OPIATES URINE SCREEN Negative (Negative)
[2024-05-18 12:45] LABS: Tricyclic Antidepressants Negative (Negative)
[2024-05-19 11:48] LABS: Fentanyl Scr w/Rfx Confirm Negative ng/mL (<1)
[2024-05-19 12:40] LABS: Chlamydia Result Negative (Negative); GC Result Negative (Negative)
[2024-05-24 16:39] LABS: Buprenorphine Negative ng/mL (Cutoff: 5.0); Norbuprenorphine Negative ng/mL (Cutoff: 2.5)
== END 2024-05-18 09:47 | disposition home or self-care (01) ==
LOC: LBN 09:46
PROVIDERS: Visit Provider Advanced Practice Midwife
DX: Z34.82 Encounter for supervision of other normal pregnancy, second trimester; Z3A.13 13 weeks gestation of pregnancy
CPT/HCPCS: 80307; 80348; 87491; 87591; 87086

== ENCOUNTER 2024-06-01 11:09 | Outpatient (REF) | payer MEDICAID, SELFPAY ==
--- OUTSIDE RECORDS SUMMARY | 2024-06-01 11:11 | XMS_ITS | Encounter Summary ---
[place] [address] Care Team Providers Care Solid Waste Technician Name Role Phone Coni Oliveros APRN Primary Care Provider [phone] Reason for Referral * Diagnostic Test (Routine) - Closed Specialty Diagnoses / Procedures Referred By Contac t Referred To Contact Radiology Diagnoses Family history of congenital anomalies Procedures US OB Detailed Morphology Jessica Matias CNM [address] [place] [address] [place] [address] Referral ID Status Reason Start Date Expiration Date V isits Requested Visits Authorized [id number] Closed Specialty Service Requested 06/27/2022 12/27/2023 1 1 Reason for Visit * Diagnostic Test (Routine) - Closed Specialty Diagnoses / Procedures Referred By Contac t Referred To Contact Radiology Diagnoses Family history of congenital anomalies Procedures US OB Detailed Morphology Jessica Matias CNM [address] [place] [address] [facility] [place] [address] Referral ID Status Reason Start Date Expiration Date V isits Requested Visits Authorized [id number] Closed Specialty Service Requested 06/27/2022 12/27/2023 1 1 Encounter Details Date Type Department Care Team (Latest Contact Info) Description 08/20/2022 11:15 AM EST - 08/20/2022 11:59 PM EST Hospital Encounter Radiology at [place] [phone] [place] [address] [place] [address] [address] [place], [place] [id number] Family history of congenital anomalies Discharge Disposition: Home Social History Tobacco Use Types Packs/Day Years Used Date Smoking Tobacco: Never Passive Smoke Exposure: Yes Alcohol Use Standard Drinks/Week Comments Not Currently 0 (1 standard drink = 0.6 oz pur e alcohol) Comments Yes Sex and Gender Information Value Date Recorded Sex Assigned at Not on file Gender Identity Not on file Sexual Orientation Not on file documented as of this encounter Medications at Time of Discharge Medication Sig Dispensed Refills Start Date End Date vitamin 27 & [id number] 60 mg iron-1 mg Tablet Take 1 tablet by mouth daily. documented as of this encounter Plan of Treatment Upcoming Encounters Date Type Department Care Team (Late st Contact Info) Description 07/06/2024 9:00 AM EST Appointment Radiology at [place] [phone] [place] [address] [place] [address] [address] [place], [place] [address] 07/06/2024 10:00 AM EST Office Visit Obstetrics and Gynecology at [place] [phone] Jatinder Carlos MD [facility] OBSTETRICS [place] [address] 07/06/2024 11:00 AM EST Appointment Non-Invasive Cardiology Lab [place] [phone] [place] [address] [place] [address] [address] [place], [place] [address] 07/06/2024 11:00 AM EST Procedure [place] [address] Jodie Hodge MD [address] [facility] [place] [address] documented as of this encounter Procedures Procedure Name Priority Date/Time Associated Diagnosis Comments US OB DETAILED MORPHOLOGY Routine 08/20/2022 12:18 PM EST Family history of congenital anomalies documented in this encounter Results * US OB Detailed Morphology (08/20/2022 12:18 PM EST) Anatomical Region Laterality Modality Pelvis, Abdomen Ultrasound 08/20/2022 11:2 6 AM EST Impressions 08/20/2022 12:27 PM EST 2nd Trimester - Detailed Morphology - Summary Single intrauterine with a gestational age of 19w 5d based on LMP ??(04/04/22) Composite age based on the current ultrasound alone is 19w 4d. Current growth parameters are consistent with prior dating indicating normal growth. Amniotic fluid volume is Normal. Detailed anatomic evaluation was performed and no structural abnormalities are noted. Thank you for letting us participate in the care of this patient. If you are a health care provider and have any questions regarding this report, please contact the number above. For patients who have questions, please contact the health lawn care specialist that requested your imaging first. ?Geetha Huynh, Staff Physician Electronically Signed Final Report ?? 08/20/2022 12:27 pm Narrative 08/20/2022 12:27 PM EST OBSTETRICS REPORT ?(Signed Final 08/20/2022 12:27 pm) PATIENT INFO: ID #: ? [id number] ?: ??[birth year] (22 yrs)(F) Name: ? TOBY DAMON ?Visit Date: 08/20/2022 11:26 am ? TERRELL PERFORMED BY: Performed By: ? Paul SHAW, ??Dacia Attending: ?Lino RAMIREZ, Geetha Peterson Referred By: ?JESSICA MATIAS Location: ? [place] SERVICE(S) PROVIDED: [facility] - Detailed Morphology - [id number] ? [id number] INDICATIONS: 19 weeks gestation of ?Z3A.19 FOB born w/SVT requiring surgery VITAL SIGNS: Weight (lb): 109.0 Height: ?5'1 ? BMI: ? 20.59 EVALUATION: Num Of Fetuses: ? 1 Heart Rate(bpm): ??144 Cardiac Activity: ? Observed, normal rhythm Presentation: ? Cephalic Placenta: ? Posterior P. Cord Insertion: ?Within Normal Limits Amniotic Fluid HUMPHREY FV: ?Normal --------- BIOMETRY: --------- BPD: ?45.6 ??mm ? G.Age: ?? 19w 5d OFD: ?61.6 ??mm HC: ?172.2 ??mm ? G.Age: ?? 19w 6d AC: ?135.8 ??mm ? G.Age: ?? 19w 0d FL: ? 30.9 ??mm ? G.Age: ?? 19w 4d HUM: ?29.4 ??mm ? G.Age: ?? 19w 4d CER: ?20.0 ??mm ? G.Age: ?? 19w 0d NFT: ?4.29 ??mm NB: ?4.1 ??mm LV: ?5.3 ??mm CM: ?6.1 ??mm CI: ?74.0 ??% ? 70 - 86 FL/HC: ? 17.9 ??% ? 16.8 - 19.8 HC/AC: ? 1.27 ?1.09 - 1.39 FL/BPD: ?67.8 ??% FL/AC: ? 22.8 ??% ? 20 - 24 Est. FW: ? 288 ??gm ?0 lb 10 oz OB HISTORY: : ?2 ?SAB: ?? 1 Living: ? 0 GESTATIONAL AGE: LMP: ? 19w 5d ?Date: ??04/04/22 ? RAINA: ?? 01/09/23 U/S Today: ? 19w 4d ?RAINA: ?? 01/10/23 Best: ?19w 5d ?? Det. By: ??LMP ??(04/04/22) ?RAINA: ?? 01/09/23 TARGETED ANATOMY: Central Nervous System Calvarium/Cranial V.: ??Within Normal Limits Intracranial Danette: ? Within Normal Limits Cavum: ? Within Normal Limits Parenchyma: ?Within Normal Limits Lateral Ventricles: ?Within Normal Limits Choroid Plexus: ?Within Normal Limits Cereb./Vermis: ? Within Normal Limits Cisterna Magna: ?Within Normal Limits Midline Falx: ?Within Normal Limits Spine Cervical: ?Visualized Thoracic: ?Visualized Lumbar: ?Visualized Sacral: ?Visualized Shape/Curvature: ? Visualized Head/Neck Face: ?Within Normal Limits Lips: ?Within Normal Limits Neck: ?Within Normal Limits Nuchal Fold: ? Within Normal Limits Nasal Bone: ?Present Profile: ? Visualized Orbits/Eyes: ? Visualized Mandible: ?Visualized Maxilla: ? Visualized Thorax Thoracic Contour: ?Within Normal Limits Lungs: ? Visualized 4 Chamber View: ?Within Normal Limits Cardiac Activity: ?Normal Rhythm Rt Outflow Tract: ?Visualized Lt Outflow Tract: ?Visualized Aortic Arch: ? Visualized Ductal Arch: ? Visualized SVC: ? Visualized Cardiac Cayuta: ?Visualized Diaphragm: ? Visualized 3 Vessel View: ? Visualized IVC: ? Visualized Abdomen Ventral Wall: ?Visualized Cord Insertion: ?Visualized Situs: ? Normal Stomach: ? Visualized Liver: ? Visualized Lt Kidney: ? Visualized Rt Kidney: ? Visualized Bladder: ? Visualized Bowel: ? Visualized Extremities Lt Humerus: ?Within Nomal Limits Rt Humerus: ?Within Normal Limits Lt Forearm: ?Within Normal Limits Rt Forearm: ?Within Normal Limits Lt Hand: ? Within Normal Limits Rt Hand: ? Within Normal Limits Lt Femur: ?Within Normal Limits Rt Femur: ?Within Normal Limits Lt Lower Leg: ?Within Normal Limits Rt Lower Leg: ?Within Normal Limits Lt Foot: ? Visualized Rt Foot: ? Visualized Other Umbilical Cord: ?3 vessel cord Genitalia: ? Male CERVIX UTERUS ADNEXA: Right Ovary Visualized Left Ovary Visualized Procedure Note Geetha Huynh MD - 08/20/2022 OBSTETRICS REPORT (Signed Final 08/20/2022 12:27 pm) PATIENT INFO: ID #: [id number] : [birth year] (22 yrs)(F) Name: TOBY DAMON Visit Date: 08/20/2022 11:26 am TERRELL PERFORMED BY: Performed By: Dacia Miller RDMS Attending: Geetha Huynh MD Referred By: JESSICA MATIAS Location: [place] SERVICE(S) PROVIDED: [facility] - Detailed Morphology - [id number] INDICATIONS: 19 weeks gestation of Z3A.19 FOB born w/SVT requiring surgery VITAL SIGNS: Weight (lb): 109.0 Height: 5'1 BMI: 20.59 EVALUATION: Num Of Fetuses: 1 Heart Rate(bpm): 144 Cardiac Activity: Observed, normal rhythm Presentation: Cephalic Placenta: Posterior P. Cord Insertion: Within Normal Limits Amniotic Fluid HUMPHREY FV: Normal --------- BIOMETRY: --------- BPD: 45.6 mm G.Age: 19w 5d OFD: 61.6 mm HC: 172.2 mm G.Age: 19w 6d AC: 135.8 mm G.Age: 19w 0d FL: 30.9 mm G.Age: 19w 4d HUM: 29.4 mm G.Age: 19w 4d CER: 20.0 mm G.Age: 19w 0d NFT: 4.29 mm NB: 4.1 mm LV: 5.3 mm CM: 6.1 mm CI: 74.0 % 70 - 86 FL/HC: 17.9 % 16.8 - 19.8 HC/AC: 1.27 1.09 - 1.39 FL/BPD: 67.8 % FL/AC: 22.8 % 20 - 24 Est. FW: 288 gm 0 lb 10 oz OB HISTORY: : 2 SAB: 1 Livin GESTATIONAL AGE: LMP: 19w 5d Date: 04/04/22 RAINA: 01/09/23 U/S Today: 19w 4d RAINA: 01/10/23 Best: 19w 5d Det. By: LMP (04/04/22) RAINA: 01/09/23 TARGETED ANATOMY: Central Nervous System Calvarium/Cranial V.: Within Normal Limits Intracranial Danette: Within Normal Limits Cavum: Within Normal Limits Parenchyma: Within Normal Limits Lateral Ventricles: Within Normal Limits Choroid Plexus: Within Normal Limits Cereb./Vermis: Within Normal Limits Cisterna Magna: Within Normal Limits Midline Falx: Within Normal Limits Spine Cervical: Visualized Thoracic: Visualized Lumbar: Visualized Sacral: Visualized Shape/Curvature: Visualized Head/Neck Face: Within Normal Limits Lips: Within Normal Limits Neck: Within Normal Limits Nuchal Fold: Within Normal Limits Nasal Bone: Present Profile: Visualized Orbits/Eyes: Visualized Mandible: Visualized Maxilla: Visualized Thorax Thoracic Contour: Within Normal Limits Lungs: Visualized 4 Chamber View: Within Normal Limits Cardiac Activity: Normal Rhythm Rt Outflow Tract: Visualized Lt Outflow Tract: Visualized Aortic Arch: Visualized Ductal Arch: Visualized SVC: Visualized Cardiac Cayuta: Visualized Diaphragm: Visualized 3 Vessel View: Visualized IVC: Visualized Abdomen Ventral Wall: Visualized Cord Insertion: Visualized Situs: Normal Stomach: Visualized Liver: Visualized Lt Kidney: Visualized Rt Kidney: Visualized Bladder: Visualized Bowel: Visualized Extremities Lt Humerus: Within Nomal Limits Rt Humerus: Within Normal Limits Lt Forearm: Within Normal Limits Rt Forearm: Within Normal Limits Lt Hand: Within Normal Limits Rt Hand: Within Normal Limits Lt Femur: Within Normal Limits Rt Femur: Within Normal Limits Lt Lower Leg: Within Normal Limits Rt Lower Leg: Within Normal Limits Lt Foot: Visualized Rt Foot: Visualized Other Umbilical Cord: 3 vessel cord Genitalia: Male CERVIX UTERUS ADNEXA: Right Ovary Visualized Left Ovary Visualized IMPRESSION 2nd Trimester - Detailed Morphology - Summary Single intrauterine with a gestational age of 19w 5d based on LMP (04/04/22) Composite age based on the current ultrasound alone is 19w 4d. Current growth parameters are consistent with prior dating indicating normal growth. Amniotic fluid volume is Normal. Detailed anatomic evaluation was performed and no structural abnormalities are noted. Thank you for letting us participate in the care of this patient. If you are a health care provider and have any questions regarding this report, please contact the number above. For patients who have questions, please contact the health lawn care specialist that requested your imaging first. Geetha Huynh, Staff Physician Electronically Signed Final Report 08/20/2022 12:27 pm Jessica Florencio MALIN IMG US OB ORDERABLE S documented in this encounter Visit Diagnoses Diagnosis Family history of congenital anomalies documented in this encounter Care Teams Solid Waste Technician Relationship Specialty Start Date End Date Coni Oliveros, COLOR MIXER [address] [place] [address] PCP - General Family Medicine 06/27/22 documented as of this encounter
--- OUTSIDE RECORDS SUMMARY | 2024-06-01 11:11 | XMS_ITS | Encounter Summary ---
Author Organization [facility] [place] [address] Care Team Providers Care Vegetable Vendor Name Role Phone Coni Oliveros APRN Primary Care Provider [phone] Encounter Details Date Type Department Care Team (Latest Contact Info) Description 08/20/2022 Travel Social History Tobacco Use Types Packs/Day Years Used Date Smoking Tobacco: Never Passive Smoke Exposure: Yes Alcohol Use Standard Drinks/Week Comments Not Currently 0 (1 standard drink = 0.6 oz pur e alcohol) Comments Yes Sex and Gender Information Value Date Recorded Sex Assigned at Not on file Gender Identity Not on file Sexual Orientation Not on file documented as of this encounter Plan of Treatment Upcoming Encounters Date Type Department Care Team (Late st Contact Info) Description 07/06/2024 9:00 AM EST Appointment [place] [phone] Jessica Matias, [address] [place], [place] [address] 07/06/2024 10:00 AM EST Office Visit Obstetrics [place] [address] Jatinder Carlos MD [facility] OBSTETRICS AND GYNECOLOGY [place], [place] [phone] 07/06/2024 11:00 AM EST Appointment Non[place] [address] Jessica Matias, KIMO [address] [place] [address] [address] [place] [place], [place] [id number] 07/06/2024 11:00 AM EST Procedure visit [place] [address] Jodie Hodge MD [address] [place] [address] [place] [address] documented as of this encounter Visit Diagnoses Not on filedocumented in this encounter Care Teams Vegetable Vendor Relationship Specialty Start Date End Date Coni Oliveros, APPLICATIONS ENGINEER MANUFACTURING [facility] [address] [facility] [place] [address] PCP - General Family Medicine 06/27/22 documented as of this encounter
--- OUTSIDE RECORDS SUMMARY | 2024-06-01 11:11 | XMS_ITS | Encounter Summary ---
Author Organization [facility] Address [address] [place] [address] Care Team Providers Care Log Pond Worker Name Role Phone Unavailable Primary Care Provider Unavailabl e Encounter Details Date Type Department Care Team (Late st Contact Info) Description 01/04/2020 Lab Requisition [facility] Pathology & Laboratory Medicine - [address] [address] Outr Resulting Lab, Provider Social History Tobacco Use Types Packs/Day Years Used Date Smoking Tobacco: Never Assessed Comments Unknown Sex and Gender Information Value Date Recorded Sex Assigned at Not on file Legal Sex Female 17:28 EDT Gender Identity Not on file Sexual Orientation Not on file documented as of this encounter Plan of Treatment Not on file documented as of this encounter Procedures Procedure Name Priority Date/Time Associated Diagnosis Comments CHLAMYDIA/N. GONORRHOEAE AMPLIFIED NUCLEIC ACID Routine 01/04/2020 14:30 EDT documented in this encounter Results * CHLAMYDIA/N. GONORRHOEAE AMPLIFIED RNA (01/04/2020 14:30 EDT) Neisseria gonorrhoeae Result Negative Negative 01/05/2020 13:30 EDT [facility] Chlamydia trachomatis Result Negative Negative 01/05/2020 13:30 EDT [facility] Urine URINE / Unknown 01/04/2020 1 4:30 EDT 01/04/2020 21:22 EDT Narrative [facility] - 01/05/2020 13:30 EDT A first catch urine specimen is acceptable for detection of Gonorrhea and Chlamydia, but might detect up to 10% fewer infections when compared with vaginal and endocervical swab samples. us Provider Outr Resulting Lab MICROBIOLOGY - GENER AL ORDERABLES Final Result [facility] [address] [place] [address] documented in this encounter Visit Diagnoses Not on filedocumented in this encounter
--- OUTSIDE RECORDS SUMMARY | 2024-06-01 11:11 | XMS_ITS | Encounter Summary ---
Author Organization [facility] Address [facility] [place] [address] Care Team Providers Care Health And Physical Education Professor Name Role Phone Coni Oliveros APRN Primary Care Provider [phone] Reason for Visit * Reason Comments Establish Care * Consultation (Routine) - Closed Specialty Diagnoses / Procedures Referred By Contac t Referred To Contact Obstetrics and Gynecology Diagnoses Encounter for supervision of normal , antepartum, unspecified Jessica Matias, KIMO [address] [place] [address] [address] [place] [address] [facility] [address] [place] [address] Referral ID Status Reason Start Date Expiration Date V isits Requested Visits Authorized [id number] Closed Consult, Test & Treat PCP Updated and/or Approved 06/26/2022 06/26/2023 6 6 Encounter Details Date Type Department Care Team (Late Contact Info) Description 08/20/2022 12:00 PM EST Office Visit Obstetrics [place] [address] Geetha Mcclain MD [facility] DR OBSTET[place]ICS [place] [address] Family history of cardiac arrhythmia Social History Tobacco Use Types Packs/Day Years Used Date Smoking Tobacco: Never Passive Smoke Exposure: Yes Tobacco Cessation:Counseling Given: Not Answered Alcohol Use Standard Drinks/Week Comments Not Currently 0 (1 standard drink = 0.6 oz pur e alcohol) Comments Yes Sex and Gender Information Value Date Recorded Sex Assigned at Not on file Gender Identity Not on file Sexual Orientation Not on file documented as of this encounter Last Filed Vital Signs Vital Sign Reading Time Taken Comments Blood Pressure 106/46 08/20/2022 12:22 PM EST Pulse 77 08/20/2022 12:22 PM EST Temperature 36.5 ??C (97.7 ??F) 08/20/2022 12:[address] Respiratory Rate 19 08/20/2022 12:22 PM EST Oxygen Saturation 100% 08/20/2022 12:22 PM EST Inhaled Oxygen Concentration - - Weight 60.8 kg (134 lb 1.6 oz) 08/20/2022 12:22 PM EST Height - - Body Mass Index - - documented in this encounter Progress Notes * Geetha Mcclain MD - 08/20/2022 12:00 PM EST Diagnosis/Maternal Medicine Consult Note Simone Jackson is a 22 y.o. year old female who is at 19w5d gestation. She is seen in consultation at the request of Jessica Matias CNM for evaluation of FH of congenital arrhythmia and CF carrier She was seen today for maternal- medicine consultation and ultrasound evaluation. The FOB had a congenital arrhythmia and has undergone an ablative procedure. He denies structural heart disease. Review of Systems Constitutional:feels well Movement: normal Contractions: none Leaking: None Bleeding: None Patient Active Problem List Diagnosis Date Noted ??? Scar 12/29/2013 No past medical history on file. Past Surgical History: Procedure Laterality Date ??? WISDOM TOOTH EXTRACTION Family History Problem Relation Age of Onset ??? Hypertension Father ??? Thyroid Disease Maternal Grandmother ??? Coronary Artery Disease Maternal Grandfather ??? Hypertension Maternal Grandfather ??? Arrhythmia Father of Baby ??? Cystic Fibrosis Father of Baby Relative Social History Occupational History ??? Not on file Tobacco Use ??? Smoking status: Never Passive exposure: Yes ??? Smokeless tobacco: Not on file Vaping Use ??? Vaping Use: Never used Substance and Sexual Activity ??? Alcohol use: Not Currently ??? Drug use: Yes Types: Marijuana ??? Sexual activity: Not on file OB History 1 Para Term AB Living SAB IAB Ectopic Multiple Live Births # Outc Date GA Lbr Luis Alberto/2nd Wgt Sex Del Anes PTL Lv 1 Current Current Outpatient Medications Medication Sig Dispense Refill ? ? vitamin 27 & [id number] 60 mg iron-1 mg Tablet Take 1 tablet by mouth daily. No current facility-administered medications for this visit. No Known Allergies Ultrasound Date: 08/20/2022 Amniotic fluid volume normal Presentation cephalic Placenta posterior Growth appropriate for gestational age anatomy unremarkable Physical Exam BP 106/46 Pulse 77 Temp 36.5 ??C (97.7 ??F) Resp 19 Wt 60.8 kg (134 lb 1.6 oz) SpO2 100% General: alert, well appearing, in no apparent distress HEENT: normocephalic, atraumatic Abdomen: Soft, nontender Neurologic:alert, oriented, normal speech, no focal findings or movement disorder noted Psychiatric: Affect is Appropriate. Assessment and Recommendations: 22 y.o. year old female at 19w5d weeks gestation, referred for counseling regarding . I spent 40 minutes in face to face time with the patient of which 50% was in direct counseling, and a total of 20 minutes in patient care reviewing records and discussing her with other consultants. We reviewed the ultrasound findings and limitations of ultrasound in detecting aneuploidy andanomalies. The growth, fluid, and placenta appear unremarkable. The heart rate appears unremarkable. No further evaluation for arrhythmia is needed unless on routine care an arrhythmia is suspected. The FOB is a CF carrier but she has been screened previously and is reportedly not a CF carrier. I appreciate the opportunity to be involved in this patients care, and am available if further questions should arise. GEETHA MCCLAIN MD 08/20/2022 Cc: [facility] [place] [address] , with copy of ultrasound report documented in this encounter Plan of Treatment Upcoming Encounters Date Type Department Care Team (Late st Contact Info) Description 07/06/2024 9:00 AM EST [place] [phone] Jessica Matias CNM [address] [place] [address] [address] [place] [address] 07/06/2024 10:00 AM EST Office Visit Obstetrics [place] [phone] Jatinder Carlos MD [facility] DR OBST[place] [address] 07/06/2024 11:00 AM EST Appointment Non-Invasive Cardiology Lab [place] [phone] [place], [place] [address] 07/06/2024 11:00 AM EST Procedure visit Pediatric Cardiology at [place] [phone] Jodie Hodge MD [address] [place] [address] [place] [address] documented as of this encounter Visit Diagnoses Diagnosis Family history of cardiac arrhythmia Family history of other cardiovascular diseases documented in this encounter Care Teams Health And Physical Education Professor Relationship Specialty Start Date End Date Coni Oliveros APRN [address] [facility], [place] [phone] PCP - General Family Medicine 06/27/22 documented as of this encounter
--- OUTSIDE RECORDS SUMMARY | 2024-06-01 11:11 | XMS_ITS | Encounter Summary ---
Author Organization [facility] Address [address] [place] [address] Care Team Providers Care Environmental Protection Economist Name Role Phone Unavailable Primary Care Provider Unavailabl e Encounter Details Date Type Department Care Team (Late st Contact Info) Description 05/18/2024 Lab Re[address] [facility] Pathology & Laboratory Medicine - [facility] [address] [place] [address] Outr Resulting Lab, Provider Social History Tobacco Use Types Packs/Day Years Used Date Smoking Tobacco: Never Assessed Interpersonal Safety Answer Date Record ed Physically Hurt Never 06/12/2020 Verbally Threaten Not on file 06/12/2020 Comments Unknown Sex and Gender Information Value Date Recorded Sex Assigned at Not on file Legal Sex Female 17:28 EDT Gender Identity Not on file Sexual Orientation Not on file documented as of this encounter Plan of Treatment Not on file documented as of this encounter Procedures Procedure Name Priority Date/Time Associated Diagnosis Comments HIV 1/2 ANTIGEN AND ANTIBODY, 4TH GENERATION Routine 05/18/2024 9:40 EDT documented in this encounter Results * HIV 1/2 ANTIGEN AND ANTIBODY, 4TH GENERATION (05/18/2024 9:40 EDT) HIV 1 and 2 Antibody/p24 Antigen, 4th Generation Negative Negative 05/19/2024 9:34 EDT [facility] Comment:If acute HIV-1 infec tion is suspected in a high risk patient, submit plasma specimen for HIV-1 RNA quantitation test. Blood VENOUS BLOOD / Unknown 05/18/2024 9:40 EDT 05/18/2024 16:48 EDT Narrative [facility] - 05/19/2024 9:34 EDT Fourth Generation assay performed on the Siemens Gigturnaur XPT. us Provider Outr Resulting Lab IMMUNOLOGY AND SEROL OGY ORDERABLES Final Result [facility] [address] [place] [address] documented in this encounter Visit Diagnoses Not on filedocumented in this encounter
--- OUTSIDE RECORDS SUMMARY | 2024-06-01 11:11 | XMS_ITS | Clinical Summary ---
Author Organization [facility] Address [address] [place] [address] Care Team Providers Care Photolith Operator Name Role Phone Unavailable Primary Care Provider Unavailabl e Encounters Date Type Department Care Team Description 05/18/2024 Lab Requisition [facility]ology & Laboratory [address] [address] Outr Resulting Lab, Provider 05/18/2024 Lab Requisition [facility] Pathology Laboratory [address] [address] Outr Resulting Lab, Provider 05/18/2024 Lab Requisition [facility] [address] [address] Outr Resulting Lab, Provider 05/18/2024 Lab Requisition [facility] [address] [address] Outr Resulting Lab, Provider 05/18/2024 Lab Requisition [facility] Pathology & Laboratory [address] [address] Outr Resulting Lab, Provider from Last 3 Months Social History Tobacco Use Types Packs/Day Years Used Date Smoking Tobacco: Never Assessed Interpersonal Safety Answer Date Record ed Physically Hurt Never 06/12/2020 Verbally Threaten Not on file 06/12/2020 Comments Unknown Sex and Gender Information Value Date Recorded Sex Assigned at Not on file Legal Sex Female 17:28 EDT Gender Identity Not on file Sexual Orientation Not on file Plan of Treatment Health Maintenance Due Date Last Done Comments Hepatitis B Vaccine (1 of 3 - 19+ 3-dose series) 2021 COVID-19 Vaccine ( season) 2024 Hepatitis C Screen Completed 05/18/2024, 06/26/2022 Procedures Procedure Name Priority Date/Time Associated Diagnosis Comments FENTANYL SCREEN WITH REFLEX TO CONFIRMATION, U Routine 05/18/2024 11:36 EDT HEPATITIS B SURFACE ANTIGEN Routine 05/18/2024 9:40 EDT HEPATITIS C AB W REFLEX TO HCV RNA BY PCR Routine 05/18/2024 9:40 EDT VARICELLA IGG ANTIBODY Routine 05/18/2024 9:40 EDT RUBELLA IGG ANTIBODY Routine 05/18/2024 9:40 EDT HIV 1/2 ANTIGEN AND ANTIBODY, 4TH GENERATION Routine 05/18/2024 9:40 EDT CHLAMYDIA/N. GONORRHOEAE AMPLIFIED NUCLEIC ACID Routine 05/18/2024 9:30 EDT from Last 3 Months Results * FENTANYL SCREEN WITH REFLEX TO CONFIRMATION, U (05/18/2024 11:36 EDT) Pathologist [facility] Fentanyl Screen with Reflex to Confirmation, U Negative <1 ng/mL 05/19/2024 11:42 EDT [facility] Urine URINE / Unknown 05/18/2024 1 1:36 EDT 05/18/2024 16:48 EDT Narrative [facility] - 05/19/2024 11:42 EDT Testing performed [facility]: [facility] [address] [place] [address], [address] [address] Billing Coordinator: Jacobo Cleveland MD; CLIA # [id number] us Provider Outr Resulting Lab URINALYSIS ORDERABLE S Final Result [facility] [address] [place] [address], [address] [place] [address], [facility] [phone] * HEPATITIS C AB W REFLEX TO HCV RNA BY PCR (05/18/2024 9:40 EDT) Pathologist [facility] Hep C Antibody Negative Negative 05/19/2024 15:35 EDT [facility] Blood VENOUS BLOOD / Unknown 05/18/2024 9:40 EDT 05/18/2024 16:48 EDT us Provider Outr Resulting Lab CHEMISTRY & BLOOD GA S ORDERABLES Final Result Performing Organization Address City/[facility]/ZIP Co de Phone Number [facility] [address] [place] [address] * RUBELLA IGG ANTIBODY (05/18/2024 9:40 EDT) Rubella IgG Ab Positive See Note 05/19/2024 10:22 EDT [facility] Comment:Positive for IgG ant ibodies to Rubella virus. Blood VENOUS BLOOD / Unknown 05/18/2024 9:40 EDT 05/18/2024 16:48 EDT us Provider Outr Resulting Lab CHEMISTRY & BLOOD GA S ORDERABLES Final Result Performing Organization Address [facility]/ZIP Co de Phone Number [facility] [address] [place] [address] * HEPATITIS B SURFACE ANTIGEN (05/18/2024 9:40 EDT) Hep B Surface Ag Negative Negative 05/19/2024 14:42 EDT [facility] Blood VENOUS BLOOD / Unknown 05/18/2024 9:40 EDT 05/18/2024 16:48 EDT us Provider Outr Resulting Lab CHEMISTRY & BLOOD GA S ORDERABLES Final Result Performing Organization Address City/[facility]/ZIP Co de Phone Number [facility] [address] [place] [address] * VARICELLA IGG ANTIBODY (05/18/2024 9:40 EDT) Varicella IgG Ab Negative See Note 05/19/2024 10:24 EDT [facility] Comment:Absence of detectabl e Varicella Zoster virus IgG antibodies. A negative result generally indicates no detectable antibody, but does not rule out acute infection. If VZV exposure is suspected, a second sample should be collected and tested no less than one or two weeks later. Blood VENOUS BLOOD / Unknown 05/18/2024 9:40 EDT 05/18/2024 16:48 EDT us Provider Outr Resulting Lab IMMUNOLOGY AND SEROL OGY ORDERABLES Final Result Performing Organization Address [facility] Co de Phone Number [facility] [address] [place] [address] * HIV 1/2 ANTIGEN AND ANTIBODY, 4TH GENERATION (05/18/2024 9:40 EDT) Pathologist [facility] HIV 1 and 2 Antibody/p24 Antigen, 4th Generation Negative Negative 05/19/2024 9:34 EDT [facility] Comment:If acute HIV-1 infec tion is suspected in a high risk patient, submit plasma specimen for HIV-1 RNA quantitation test. Blood VENOUS BLOOD / Unknown 05/18/2024 9:40 EDT 05/18/2024 16:48 EDT Narrative [facility] - 05/19/2024 9:34 EDT Fourth Generation assay performed on the Siemens Centaur XPT. us Provider Outr Resulting Lab IMMUNOLOGY AND SEROL OGY ORDERABLES Final Result Performing Organization Address [facility] Co de Phone Number [facility] [address] [place] [address] * CHLAMYDIA/N. GONORRHOEAE AMPLIFIED NUCLEIC ACID (05/18/2024 9:30 EDT) Neisseria gonorrhoeae Result Negative Negative 05/19/2024 12:35 EDT [facility] Chlamydia trachomatis Result Negative Negative 05/19/2024 12:35 EDT [facility] Swab VAGINAL STRUCTURE / Unknown 05/18/2024 9:30 EDT 05/18/2024 17:02 EDT us Provider Outr Resulting Lab MICROBIOLOGY - GENER AL ORDERABLES Final Result [facility] [address] [place] [address] from Last 3 Months
--- OUTSIDE RECORDS SUMMARY | 2024-06-01 11:11 | XMS_ITS | Encounter Summary ---
Author Organization [facility] Address [address] [place] [address] Care Team Providers Care Entry Level Accountant Name Role Phone Unavailable Primary Care Provider Unavailabl e Encounter Details Date Type Department Care Team (Late st Contact Info) Description 06/26/2022 Lab Requisition [facility] Pathology & Laboratory Medicine - [facility] [address] [place] [address] Outr Resulting Lab, Provider Social History Tobacco [...] Procedure Name Priority Date/Time Associated Diagnosis Comments RUBELLA IGG ANTIBODY Routine 06/26/2022 14:03 EST VARICELLA IGG ANTIBODY Routine 06/26/2022 14:03 EST documented in this encounter Results * VARICELLA IGG ANTIBODY (06/26/2022 14:03 EST) Varicella IgG Ab Negative See Note 06/27/2022 10:[address] [facility] Comment:Absence of detectabl e Varicella Zoster virus IgG antibodies. A negative result generally indicates no detectable antibody, but does not rule out acute infection. If VZV exposure is suspected, a second sample should be collected and tested no less than one or two weeks later. Blood VENOUS BLOOD / Unknown 06/26/2022 14:03 EST 06/26/2022 21:21 EST us Provider Outr Resulting Lab IMMUNOLOGY AND SEROL OGY ORDERABLES Final Result Performing Organization Address City/[facility]/ZIP Co de Phone Number [facility] [address] [place] [address] * RUBELLA IGG ANTIBODY (06/26/2022 14:03 EST) Rubella IgG Ab Positive See Note 06/27/2022 10:[address] [facility] Comment:Positive for IgG ant ibodies to Rubella virus. Blood VENOUS BLOOD / Unknown 06/26/2022 14:03 EST 06/26/2022 21:21 EST us Provider Outr Resulting Lab CHEMISTRY & BLOOD GA S ORDERABLES Final Result Performing Organization Address [facility] Co de Phone Number [facility] [address] [place] [address] documented in this encounter Visit Diagnoses Not on filedocumented in this encounter
--- OUTSIDE RECORDS SUMMARY | 2024-06-01 11:11 | XMS_ITS | Encounter Summary ---
Author Organization [facility] Address [address] [place] [address] Care Team Providers Care Hotel Attendant Name Role Phone Unavailable Primary Care Provider Unavailabl e Encounter Details Date Type Department Care Team (Late st Contact Info) Description 02/19/2022 Lab Requisition [facility] Pathology & Laboratory Medicine - [facility] [address] [place] [address] Outr Resulting Lab, Provider Social History Tobacco [...] Procedure Name Priority Date/Time Associated Diagnosis Comments QUANT BETA HCG, Routine 02/19/2022 14:19 EDT documented in this encounter Results * (ABNORMAL) QUANT BETA HCG, (02/19/2022 14:19 EDT) Beta HCG Quant, 9,326(H) <5 mIU/mL 02/19/2022 21:38 EDT [facility] Comment: NOTE: : Negative: Less than 5mIU/mL Indeterminant: Between 5 and 25 mIU/mL, recommend repeat testing in 48 hours Positive: Greater than 25 mIU/mL The results of this assay can be falsely lowered due to the consumption of Biotin. Blood VENOUS BLOOD / Unknown 02/19/2022 14:19 EDT 02/19/2022 21:01 EDT us Provider Outr Resulting Lab CHEMISTRY & BLOOD GA S ORDERABLES Final Result [facility] [address] [place] [address] documented in this encounter Visit Diagnoses Not on filedocumented in this encounter
--- OUTSIDE RECORDS SUMMARY | 2024-06-01 11:11 | XMS_ITS | Clinical Summary ---
Author Organization [facility] [place] [address] Care Team Providers Care Plow Holder Name Role Phone Coni Oliveros APRN Primary Care Provider [phone] Allergies No known active allergies Medications Medication Sig Dispensed Refills Start Date End Date Status vitamin 27 & [id number] 60 mg iron-1 mg Tablet Take 1 tablet by mouth daily. Active Active Problems Problem Noted Date Diagnosed Date Scar 12/29/2013 Encounters Date Type Department Care Team Description 05/23/2024 Transcribe Orders eD Incoming Referrals [phone] Jessica Matias CNM Less than 8 weeks gestation of from Last 3 Months Family History Medical History Relation Comments Hypertension Father Arrhythmia Father of Baby Cystic Fibrosis Father of Baby Relative Coronary Artery Disease Maternal Grandfather Hypertension Maternal Grandfather Thyroid Disease Maternal Grandmother Relation Status Comments Father Father of Baby Alive Father of Baby Relative Alive Maternal Grandfather Maternal Grandmother Social History Tobacco Use Types Packs/Day Years Used Date Smoking Tobacco: Never Passive Smoke Exposure: Yes Tobacco Cessation:Counseling Given: Not Answered Alcohol Use Standard Drinks/Week Comments Not Currently 0 (1 standard drink = 0.6 oz pur e alcohol) Sex and Gender Information Value Date Recorded Sex Assigned at Not on file Gender Identity Not on file Sexual Orientation Not on file Last Filed Vital Signs Vital Sign Reading [...] 1.6 oz) 08/20/2022 12:22 PM EST Height 146.1 cm (4' 9.5) 12/02/2013 9:20 AM EDT Body Mass Index - - Plan of Treatment Upcoming Encounters Date Type Department Care Team (Late st Contact Info) Description 07/06/2024 9:00 AM [place] [address] [place], [place] [address] 07/06/2024 10:00 AM EST Office Visit Obstetrics [place] [address] Jatinder Carlos MD [facility] DR OBSTETRICS AND GYNECOLOGY [place], [place] [id number] 07/06/2024 11:00 AM EST Appointment Non-[place] [address] [place], [place] [address] 07/06/2024 11:00 AM EST Procedure visit [place] [address] Jodie Hodge MD [address] [place] [address] [place] [address] Health Maintenance Due Date Last Done Comments Chlamydia Screening 2017 HPV vaccine (1 - 3-dose series) 2017 HIV screen 01/15/2020 Hepatitis C Screening 01/15/2020 Hepatitis B vaccine (0-59 yrs) (1) 2021 Tetanus/Diphtheria/Pertussis Vaccines (1 - Tdap) 01/14 PAP Smear 2023 Covid-19 Vaccine ( - season) 2024 Influenza (Flu) vaccine (1 o f 1 - Influenza standard series) 03/20/2024 Procedures Procedure Name Priority Date/Time Associated Diagnosis Comments LAB SCAN 05/18/2024 12:00 AM EDT from Last 3 Months Results * Scan Doc: Lab (05/18/2024 12:00 AM EDT) Narrative 05/18/2024 12:00 AM EDT Ordered by an unspecified provider. Scanning Provider MEDIA MGR SCAN EXT O RDR/RSLT from Last 3 Months Care Teams Plow Holder Relationship Specialty Start Date End Date Coni Oliveros APRN [place] [place] [address] PCP - General Family Medicine 06/27/22
--- OUTSIDE RECORDS SUMMARY | 2024-06-01 11:11 | XMS_ITS | Encounter Summary ---
Author Organization [facility] Address [address] [place] [address] Care Team Providers Care Zone Maintenance Technician Name Role Phone Unavailable Primary Care Provider Unavailabl e Encounter Details Date Type Department Care Team (Late st Contact Info) Description 02/24/[address] [facility] Pathology & Laboratory Medicine - [facility] [address] [place] [address] [address] [place] [id number] Encounter for other general examination Social History Tobacco Use Types Packs/Day Years [...] Procedure Name Priority Date/Time Associated Diagnosis Comments PAP TEST Today 02/23/2023 2:00 EDT Encounter for other general examination documented in this encounter Results * PAP TEST (02/23/2023 2:00 EDT) Specimens A. Cervix and/or Endocervix , ThinPrep Imaging System with Manual Evaluation 03/02/2023 10:38 EDT [facility] Specimen Adequacy Satisfactory for Evaluation - transformation zone component present 03/02/2023 10:38 T [facility] General Categorization Negative for intraepithelial lesion or malignancy 03/02/2023 10:38 T [facility] Attestation . 03/02/2023 10:38 [facility] at 1038 Clinical History See below 03/02/20 10:38 EDT [facility] Performing Lab [facility] 03/02/2023 10:38 EDT [facility] Scanned Images 03/02/2023 10:38 EDT [facility] Papanicolaou smear specimen (specimen) CERVIX UTERI STRUCTURE / Unknown 02/23/2023 2:00 EDT 02/24/2023 13:46 EDT us Hillary WALTERS PATHOLOGY ORDERABLES Final Re sult [facility] [address] [place] [address] documented in this encounter Visit Diagnoses Diagnosis Encounter for other general examination documented in this encounter
--- OUTSIDE RECORDS SUMMARY | 2024-06-01 11:11 | XMS_ITS | Encounter Summary ---
Author Organization [facility] Address [address] [place] [address] Care Team Providers Care Stave Bolt Equalizer Name Role Phone Unavailable Primary Care Provider Unavailabl e Encounter Details Date Type Department Care Team (Late st Contact Info) Description 05/18/2024 Lab Requisition [facility] Pathology & Laboratory Medicine - [facility] [address] [place] [address] Outr Resulting Lab, Provider Social History Tobacco [...] TO CONFIRMATION, U Routine 05/18/2024 11:36 EDT documented in this encounter Results * FENTANYL SCREEN WITH REFLEX TO CONFIRMATION, U (05/18/2024 11:36 EDT) Fentanyl Screen with Reflex to Confirmation, U Negative <1 ng/mL 05/19/2024 11:42 EDT [facility] Urine URINE / Unknown 05/18/2024 1 1:36 EDT 05/18/2024 16:48 EDT Narrative [facility] - 05/19/2024 11:42 EDT Testing performed by: [facility] [address] [place] [address], [address], [place] [address] Fig Caprifier: Jacobo Cleveland MD; CLIA # [id number] us Provider Outr Resulting Lab URINALYSIS ORDERABLE S Final Result [facility] [address] [facility], [address] [phone] documented in this encounter Visit Diagnoses Not on filedocumented in this encounter
--- OUTSIDE RECORDS SUMMARY | 2024-06-01 11:11 | XMS_ITS | Encounter Summary ---
Author Organization [facility] Address [address] [place] [address] Care Team Providers Care Adon Name Role Phone Unavailable Primary Care Provider Unavailabl e Encounter Details Date Type Department Care Team (Late st Contact Info) Description 06/27/2022 Lab Requisition [facility] Pathology & Laboratory Medicine - [facility] [address] [place] [address] Outr Resulting Lab, Provider Social History Tobacco [...] Comments CHLAMYDIA/N. GONORRHOEAE AMPLIFIED NUCLEIC ACID Routine 06/26/2022 13:20 EST documented in this encounter Results * CHLAMYDIA/N. GONORRHOEAE AMPLIFIED RNA (06/26/2022 13:20 EST) Neisseria gonorrhoeae Result Negative Negative 06/29/2022 14:47 EST [facility] Chlamydia trachomatis Result Negative Negative 06/29/2022 14:47 EST [facility] Swab ENTIRE ENDOCERVIX / Unknown 06/26/2022 13:20 EST 06/28/2022 19:28 EST us Provider Outr Resulting Lab MICROBIOLOGY - GENER AL ORDERABLES Final Result [facility] [address] [place] [address] documented in this encounter Visit Diagnoses Not on filedocumented in this encounter
--- OUTSIDE RECORDS SUMMARY | 2024-06-01 11:11 | XMS_ITS | Encounter Summary ---
[place] [address] Care Team Providers Care Svp Digital Ad Sales Name Role Phone Coni Oliveros APRN Primary Care Provider [phone] Reason for Referral * Consultation (Routine) - Authorized Specialty Diagnoses / Procedures Referred By Contac t Referred To Contact Obstetrics and Gynecology Diagnoses Less than 8 weeks gestation of Family history of other congenital malformations, deformations and chromosomal abnormalities (pending orders)Detail Morph 06/29-07/13, Echo Jessica Matias CNM [address] [place] [address] [address] [place] [address] [facility] Broth [employer]ter [address] [address] Referral ID Status Reason Start Date Expiration Date Visits Requested Visits Authorized [id number] Authorized Consult, Test & Treat PCP Updated and/or Approved 4 05/18/2025 6 6 Encounter Details Date Type Department Care Team (Late st Contact Info) Description 05/23/2024 Transcribe Orders eD Incoming Referrals [phone] Jessica Matias CNM [address] [place] [address] [address] [place] [address] Less than 8 weeks gestation of Social History Tobacco Use Types Packs/Day Years [...] Upcoming Encounters Date Type Department Care Team (Jaki st Contact Info) Description 07/06/2024 9:00 AM EST Appointment Radiology at [place] [phone] [place], [place] [address] 07/06/2024 10:00 AM EST Office Visit Obstetrics and Gynecology at [place] [phone] Jatinder Carlos MD [facility] DR OBSTETRICS AND GYNECOLOGY [place], [place] [phone] 07/06/2024 11:00 AM EST Appointment Non-Invasive Cardiology Lab [place] [phone] [place], [place] [phone] 07/06/2024 11:00 AM EST Procedure visit [place] [address] Jodie Hodge MD [address] [place] [address] [place] [address] Scheduled Referrals Name Type Priority Associated Diagnoses Orde r Schedule Referral to Maternal Medicine Outpatient Referral Routine Less than 8 weeks gestation of Ordered: 05/23/2024 documented as of this encounter Visit Diagnoses Diagnosis Less than 8 weeks gestation of state, incidental documented in this encounter Care Teams Svp Digital Ad Sales Relationship Specialty Start Date End Date Coni Oliveros APRN [facility] [place] [place] [address] PCP - General Family Medicine 06/27/22 documented as of this encounter
--- OUTSIDE RECORDS SUMMARY | 2024-06-01 11:11 | XMS_ITS | Encounter Summary ---
Author Organization [facility] Address [address] [place] [address] Care Team Providers Care Credit Union Teller Name Role Phone Unavailable Primary Care Provider Unavailabl e Encounter Details Date Type Department Care Team (Late st Contact Info) Description 05/17/2021 Lab Requisition [facility] Pathology & Laboratory Medicine - [address] [address] Outr Resulting Lab, Provider Social History Tobacco [...] Comments CHLAMYDIA/N. GONORRHOEAE AMPLIFIED NUCLEIC ACID Routine 05/16/2021 13:00 EDT documented in this encounter Results * CHLAMYDIA/N. GONORRHOEAE AMPLIFIED RNA (05/16/2021 13:00 EDT) Neisseria gonorrhoeae Result Negative Negative 05/20/2021 16:36 EDT [facility] Chlamydia trachomatis Result Negative Negative 05/20/2021 16:36 EDT [facility] Swab ENTIRE ENDOCERVIX / Unknown 05/16/2021 13:00 EDT 05/18/2021 14:21 EDT us Provider Outr Resulting Lab MICROBIOLOGY - GENER AL ORDERABLES Final Result [facility] [address] [place] [address] documented in this encounter Visit Diagnoses Not on filedocumented in this encounter
--- OUTSIDE RECORDS SUMMARY | 2024-06-01 11:11 | XMS_ITS | Referral Summary ---
Author Organization [facility] Address [address] [place] [address] Care Team Providers Care Behavioral Health Counselor Name Role Phone Unavailable Primary Care Provider Unavailabl e Encounters Date Type Department Care Team Description 05/18/2024 Lab Requisition [facility] Pathology & Laboratory [address] [address] Outr Resulting Lab, Provider 05/18/2024 Lab Requisition [facility]ology & Laboratory [address] [address] Outr Resulting Lab, Provider 05/18/2024 Lab Requisition [facility]ology & Laboratory [address] [address] Outr Resulting Lab, Provider 05/18/2024 Lab Requisition [facility] Pathology & Laboratory [address] [address] Outr Resulting Lab, Provider 05/18/2024 Lab Requisition [facility]ology & Laboratory [address] [address] Outr Resulting Lab, Provider from Last 3 [...] Orientation Not on file Plan of Treatment Not on file Procedures Procedure Name Priority Date/Time Associated Diagnosis [...] U Negative <1 ng/mL 05/19/2024 11:42 EDT [facility] Urine URINE / Unknown 05/18/2024 1 1:36 EDT 05/18/2024 16:48 EDT Narrative [facility] - 05/19/2024 11:42 EDT [facility] performed by: [facility] [address] [place] [address], [facility] [address] [address] Press Operator Heavy Duty: Jacobo Cleveland MD; CLIA # [id number] us Provider Outr Resulting Lab URINALYSIS ORDERABLE S Final Result [facility] [address] [place] [address], [address] [place] [address], [facility] [phone] * HEPATITIS C AB W REFLEX TO HCV RNA BY PCR (05/18/2024 9:40 EDT) Hep C Antibody Negative Negative 05/19/2024 15:35 EDT [facility] Blood VENOUS BLOOD / Unknown 05/18/2024 9:40 EDT 05/18/2024 16:48 EDT us Provider Outr Resulting Lab CHEMISTRY & BLOOD GA S ORDERABLES Final Result Performing Organization Address [facility] Co de Phone Number [facility] [address] [place] [address] * RUBELLA IGG ANTIBODY (05/18/2024 9:40 EDT) Rubella IgG Ab Positive See Note 05/19/2024 10:22 EDT [facility] Comment:Positive for IgG ant ibodies to Rubella virus. Blood VENOUS BLOOD / Unknown 05/18/2024 9:40 EDT 05/18/2024 16:48 EDT us Provider Outr Resulting Lab CHEMISTRY & BLOOD GA S ORDERABLES Final Result Performing Organization Address [facility] Co de Phone Number [facility] [address] [place] [address] * HEPATITIS B SURFACE ANTIGEN (05/18/2024 9:40 EDT) Hep B Surface Ag Negative Negative 05/19/2024 14:42 EDT [facility] Blood VENOUS BLOOD / Unknown 05/18/2024 9:40 EDT 05/18/2024 16:48 EDT us Provider Outr Resulting Lab CHEMISTRY & BLOOD GA S ORDERABLES Final Result Performing Organization Address [facility] Co de Phone Number [facility] [address] [place] [address] * VARICELLA IGG ANTIBODY (05/18/2024 9:40 EDT) Varicella IgG Ab Negative See Note 05/19/2024 10:24 EDT [facility] Comment:Absence of detectabl e Varicella [...] IMMUNOLOGY AND SEROL OGY ORDERABLES Final Result [facility] [address] [place], [place] [phone] * HIV 1/2 ANTIGEN AND ANTIBODY, 4TH GENERATION (05/18/2024 9:40 EDT) HIV 1 and 2 Antibody/p24 Antigen, 4th Generation Negative Negative 05/19/2024 9:34 EDT [facility] Comment:If acute HIV-1 infec tion is suspected in a high risk patient, submit plasma specimen for HIV-1 RNA quantitation test. Blood VENOUS BLOOD / Unknown 05/18/2024 9:40 EDT 05/18/2024 16:48 EDT Narrative [facility] - 05/19/2024 9:34 EDT Fourth Generation assay performed on the Siemens Centaur XPT. us Provider Outr Resulting Lab IMMUNOLOGY AND SEROL OGY ORDERABLES Final Result Performing Organization Address [facility]/ZIP Co de Phone Number [facility] [address] [place] [address] * CHLAMYDIA/N. GONORRHOEAE AMPLIFIED NUCLEIC ACID (05/18/2024 9:30 EDT) Neisseria gonorrhoeae Result Negative Negative 05/19/2024 12:35 EDT [facility] Chlamydia trachomatis Result Negative Negative 05/19/2024 12:35 EDT [facility] Swab VAGINAL STRUCTURE / Unknown 05/18/2024 9:30 EDT 05/18/2024 17:02 EDT us Provider Outr Resulting Lab MICROBIOLOGY - GENER AL ORDERABLES Final Result Performing Organization Address City/[facility]/ZIP Co de Phone Number [facility] [address] [place] [address] from Last 3 Months
--- OUTSIDE RECORDS SUMMARY | 2024-06-01 11:11 | XMS_ITS | Encounter Summary ---
Author Organization [facility] Address [address] [place] [address] Care Team Providers Care Contracts Law Professor Name Role Phone Unavailable Primary Care Provider Unavailabl e Encounter Details Date Type Department Care Team (Late st Contact Info) Description 06/26/2022 Lab Requisition [facility] Pathology & Laboratory Medicine - [facility] [address] [place] [address] Outr Resulting Lab, Provider Social History Tobacco [...] Procedure Name Priority Date/Time Associated Diagnosis Comments HEPATITIS C AB W REFLEX TO HCV RNA BY PCR Routine 06/26/2022 14:03 EST HEPATITIS B SURFACE ANTIGEN Routine 06/26/2022 14:03 EST documented in this encounter Results * HEPATITIS B SURFACE ANTIGEN (06/26/2022 14:03 EST) Hep B Surface Ag Negative Negative 06/27/2022 11:45 EST [facility] Blood VENOUS BLOOD / Unknown 06/26/2022 14:03 EST 06/26/2022 21:21 EST us Provider Outr Resulting Lab CHEMISTRY & BLOOD GA S ORDERABLES Final Result [facility] [address] [place] [address] * HEPATITIS C AB W REFLEX TO HCV RNA BY PCR (06/26/2022 14:03 EST) Hep C Antibody Negative Negative 06/27/2022 9:14 EST [facility] Blood VENOUS BLOOD / Unknown 06/26/2022 14:03 EST 06/26/2022 21:21 EST us Provider Outr Resulting Lab CHEMISTRY & BLOOD GA S ORDERABLES Final Result [facility] [address] [place] [address] documented in this encounter Visit Diagnoses Not on filedocumented in this encounter
--- OUTSIDE RECORDS SUMMARY | 2024-06-01 11:11 | XMS_ITS | Encounter Summary ---
Author Organization [facility] Address [address] [place] [address] Care Team Providers Care Seed Analysis Laboratory Assistant Name Role Phone Unavailable Primary Care Provider Unavailabl e Encounter Details Date Type Department Care Team (Late st Contact Info) Description 10/14/2021 Lab Requisition [facility] Pathology & Laboratory Medicine - [address] [address] Outr Resulting Lab, Provider Social History Tobacco [...] Procedure Name Priority Date/Time Associated Diagnosis Comments ZZCOVID-19 TEST [facility] LAB PCR Today 10/14/2021 16:33 EDT COVID-19 TESTING Routine 10/14/2021 16:3 3 EDT documented in this encounter Results * COVID-19 TEST [facility] PCR (10/14/2021 16:33 EDT) Swab 10/14/2021 16:3 3 EDT 10/14/2021 21:32 EDT us Provider Outr Resulting Lab MICROBIOLOGY - GENER AL ORDERABLES Final Result [facility] [address] [place] [address] * COVID-19 TESTING (10/14/2021 16:33 EDT) COVID-19 rt-PCR Result Negative Negative 10/15/2021 13:32 EDT [facility] Comment: This test has not been FDA cleared or approved. This test has been authorized by FDA under an EUA for use by authorized laboratories. This test has been authorized only for detection of nucleic acid from 2019-nCoV, not for any other viruses or pathogens. This test is only authorized for the duration of the declaration that circumstances exist justifying the authorization of emergency use of in vitro diagnostic tests for detection and/or diagnosis of 2019-nCoV under section 564(b)(1) of Act, 21 U.S.C ?? 360bbb-3(b) (1), unless the authorization is terminated or revoked sooner. Negative results do not preclude 2019-nCoV infection and should not be used as the sole basis for treatment or other patient management decisions. Negative results must be combined with clinical observations, patient history, and epidemiological information. Testing was performed using the benji SARS-CoV-2 assay ([employer] on the Benji 6800 System Performing Lab Benji [address] [facility] Lab 10/15/2021 13:32 EDT [facility] Swab 10/14/2021 16:3 3 EDT 10/14/2021 21:32 EDT us Provider Outr Resulting Lab MICROBIOLOGY - GENER AL ORDERABLES Final Result [facility] [address] [place] [address] documented in this encounter Visit Diagnoses Not on filedocumented in this encounter
--- OUTSIDE RECORDS SUMMARY | 2024-06-01 11:11 | XMS_ITS | Encounter Summary ---
Author Organization [facility] Address [address] [place] [address] Care Team Providers Care Consumer Education Specialist Name Role Phone Unavailable Primary Care Provider Unavailabl e Encounter Details Date Type Department Care Team (Late st Contact Info) Description 05/18/2024 Lab Requisition [facility] Pathology & Laboratory Medicine - [facility] [address] [place] [address] Outr Resulting Lab, Provider Social History Tobacco [...] Associated Diagnosis Comments RUBELLA IGG ANTIBODY Routine 05/18/2024 9:40 EDT VARICELLA IGG ANTIBODY Routine 05/18/2024 9:40 EDT documented in this encounter Results * VARICELLA IGG ANTIBODY (05/18/2024 9:40 EDT) Varicella IgG Ab Negative See Note 05/19/2024 10:24 EDT [facility] Comment:Absence of detectabl e [...] OGY ORDERABLES Final Result Performing Organization Address City/[facility]/ZIP Co de Phone Number [facility] [address] [place] [address] * RUBELLA IGG ANTIBODY (05/18/2024 9:40 EDT) Rubella IgG Ab Positive See Note 05/19/2024 10:22 EDT [facility] Comment:Positive for IgG ant ibodies to Rubella virus. Blood VENOUS BLOOD / Unknown 05/18/2024 9:40 EDT 05/18/2024 16:48 EDT us Provider Outr Resulting Lab CHEMISTRY & BLOOD GA S ORDERABLES Final Result Performing Organization Address [facility] Co de Phone Number [facility] [address] [place] [address] documented in this encounter Visit Diagnoses Not on filedocumented in this encounter
--- OUTSIDE RECORDS SUMMARY | 2024-06-01 11:11 | XMS_ITS | Encounter Summary ---
[place] [address] Care Team Providers Care Needle Loom Operator Helper Name Role Phone Unknown Primary Care Provider Unavailabl e Reason for Referral * Consultation (Routine) - Closed Specialty Diagnoses / Procedures Referred By Canelo t Referred To Contact Obstetrics and Gynecology Diagnoses Encounter for supervision of normal , antepartum, unspecified Jessica Matias CNM [address] [place] [address] [address] [place] [address] [facility] [employer] [address] [address] Referral ID Status Reason Start Date Expiration Date V isits Requested Visits Authorized [id number] Closed Consult, Test & Treat PCP Updated and/or Approved 06/26/2022 06/26/2023 6 6 Encounter Details Date Type Department Care Team (Late st Contact Info) Description 06/26/2022 Transcribe Orders eDH Incoming Referrals [phone] Jessica Matias CNM [address] [place] [address] [address] [place], [place] [phone] Encounter for supervision of normal , antepartum, unspecified Social History Tobacco Use Types Packs/Day Years Used Date Smoking Tobacco: Passive Smo ke Exposure - Never Smoker Sex and Gender Information Value Date Recorded Sex Assigned at Not on file Gender Identity Not on file Sexual Orientation Not on file documented as of this encounter Plan of Treatment Upcoming Encounters Date Type Department Care Team (Late st Contact Info) Description 07/06/2024 9:00 AM EST [place] [address] [place] [address] 07/06/2024 10:00 AM EST Office Visit Obstetrics [place] [address] Jatinder Carlos MD [facility] DR OBSTET[place] [address] 07/06/2024 11:00 AM EST Appointment Non[place] [phone] [place] [address] 07/06/2024 11:00 AM EST Procedure visit [place] [phone] Jodie Hodge MD [address] [place] [address] [place] [address] Scheduled Referrals Name Type Priority Associated Diagnoses Orde r Schedule Referral to Maternal Medicine Outpatient Referral Routine Encounter for supervision of normal , antepartum, unspecified Ordered: 06/26/2022 documented as of this encounter Visit Diagnoses Diagnosis Encounter for supervision of normal , antepartum, unspecified documented in this encounter Care Teams Needle Loom Operator Helper Relationship Specialty Start Date End Date Unknown None PCP - General 06/26/22 06/26/22 documented as of this encounter
--- OUTSIDE RECORDS SUMMARY | 2024-06-01 11:11 | XMS_ITS | Encounter Summary ---
Author Organization [facility] Address [address] [place] [address] Care Team Providers Care Shim Plug Cutter Name Role Phone Unavailable Primary Care Provider Unavailabl e Encounter Details Date Type Department Care Team (Late st Contact Info) Description 06/26/2022 Lab Requisition [facility] Pathology & Laboratory Medicine - [facility] [address] [place] [address] Outr Resulting Lab, Provider Social History Tobacco [...] 1/2 ANTIGEN AND ANTIBODY, 4TH GENERATION Routine 06/26/2022 14:03 EST documented in this encounter Results * HIV 1/2 ANTIGEN AND ANTIBODY, 4TH GENERATION (06/26/2022 14:03 EST) HIV 1 and 2 Antibody/p24 Antigen, 4th Generation Negative Negative 06/27/2022 10:34 EST [facility] Comment:If acute HIV-1 infec tion is suspected in a high risk patient, submit plasma specimen for HIV-1 RNA quantitation test. Blood VENOUS BLOOD / Unknown 06/26/2022 14:03 EST 06/26/2022 21:21 EST Narrative [facility] - 06/27/2022 10:34 EST Fourth Generation assay performed on the Siemens Biaaur XPT. us Provider Outr Resulting Lab IMMUNOLOGY AND SEROL OGY ORDERABLES Final Result [facility] [address] [place] [address] documented in this encounter Visit Diagnoses Not on filedocumented in this encounter
--- OUTSIDE RECORDS SUMMARY | 2024-06-01 11:11 | XMS_ITS | Encounter Summary ---
Author Organization [facility] Address [address] [place] [address] Care Team Providers Care Dental Surgery Doctor Name Role Phone Unavailable Primary Care Provider Unavailabl e Encounter Details Date Type Department Care Team (Late st Contact Info) Description 02/28/2022 Lab Requisition [facility] Pathology & Laboratory Medicine - [facility] [address] [place] [address] Outr Resulting Lab, Provider Social History Tobacco [...] Associated Diagnosis Comments QUANT BETA HCG, Routine 02/28/2022 12:31 EDT documented in this encounter Results * (ABNORMAL) QUANT BETA HCG, (02/28/2022 12:31 EDT) Beta HCG Quant, 334(H) <5 mIU/mL 02/28/2022 21:50 EDT [facility] Comment: NOTE: : Negative: Less than 5mIU/mL Indeterminant: Between 5 and 25 mIU/mL, recommend repeat testing in 48 hours Positive: Greater than 25 mIU/mL The results of this assay can be falsely lowered due to the consumption of Biotin. Blood VENOUS BLOOD / Unknown 02/28/2022 12:31 EDT 02/28/2022 21:17 EDT us Provider Outr Resulting Lab CHEMISTRY & BLOOD GA S ORDERABLES Final Result [facility] [address] [place] [address] documented in this encounter Visit Diagnoses Not on filedocumented in this encounter
--- OUTSIDE RECORDS SUMMARY | 2024-06-01 11:11 | XMS_ITS | Encounter Summary ---
Author Organization [facility] Address [address] [place] [address] Care Team Providers Care Frame Stylist Name Role Phone Unavailable Primary Care Provider Unavailabl e Encounter Details Date Type Department Care Team (Late st Contact Info) Description 05/18/2024 Lab Requisition [facility] Pathology & Laboratory Medicine - [facility] [address] [place] [address] Outr Resulting Lab, Provider Social History Tobacco [...] RNA BY PCR Routine 05/18/2024 9:40 EDT HEPATITIS B SURFACE ANTIGEN Routine 05/18/2024 9:40 EDT documented in this encounter Results * HEPATITIS B SURFACE ANTIGEN (05/18/2024 9:40 EDT) Hep B Surface Ag Negative Negative 05/19/2024 14:42 EDT [facility] Blood VENOUS BLOOD / Unknown 05/18/2024 9:40 EDT 05/18/2024 16:48 EDT us Provider Outr Resulting Lab CHEMISTRY & BLOOD GA S ORDERABLES Final Result [facility] [address] [place], [place] [address] * HEPATITIS C AB W REFLEX TO HCV RNA BY PCR (05/18/2024 9:40 EDT) Hep C Antibody Negative Negative 05/19/2024 15:35 EDT [facility] Blood VENOUS BLOOD / Unknown 05/18/2024 9:40 EDT 05/18/2024 16:48 EDT us Provider Outr Resulting Lab CHEMISTRY & BLOOD GA S ORDERABLES Final Result [facility] [address] [place], [place] [id number] documented in this encounter Visit Diagnoses Not on filedocumented in this encounter
--- OUTSIDE RECORDS SUMMARY | 2024-06-01 11:11 | XMS_ITS | Encounter Summary ---
Author Organization [facility] Address [address] [place] [address] Care Team Providers Care Copywriter Name Role Phone Unavailable Primary Care Provider Unavailabl e Encounter Details Date Type Department Care Team (Late st Contact Info) Description 05/18/2024 Lab Requisition [facility] Pathology & Laboratory Medicine - [address] [address] Outr Resulting Lab, Provider Social History Tobacco [...] Comments CHLAMYDIA/N. GONORRHOEAE AMPLIFIED NUCLEIC ACID Routine 05/18/2024 9:30 EDT documented in this encounter Results * CHLAMYDIA/N. GONORRHOEAE AMPLIFIED NUCLEIC ACID (05/18/2024 9:30 EDT) Neisseria gonorrhoeae Result Negative Negative 05/19/2024 12:35 EDT [facility] Chlamydia trachomatis Result Negative Negative 05/19/2024 12:35 EDT [facility] Swab VAGINAL STRUCTURE / Unknown 05/18/2024 9:30 EDT 05/18/2024 17:02 EDT us Provider Outr Resulting Lab MICROBIOLOGY - GENER AL ORDERABLES Final Result [facility] [address] [place] [address] documented in this encounter Visit Diagnoses Not on filedocumented in this encounter
--- OUTSIDE RECORDS SUMMARY | 2024-06-01 11:11 | XMS_ITS | Data Portability ---
Author Organization [facility] Address [address] [place] [address] Assessment Encounter Date Assessment Date Assessment LastModified by Organization Details LastModified Time 08/28/2023 08/28/2023 PT WAS NOT EVALUATED IN THIS CLINIC, [place] went to [place] [id number] Not available 08/28/2023 19:09:12 Plan of Treatment Reminders Order Date Submit Date Provider Last Modified By Organization Details Last Modified Time Details Appointments Acute 10 2023 09:04A Eva LANDEROS Not available Not available Not available Lab rapid strep group A, throat [email or web address], [address], [place], [address], 08/28/2023 11:38:20 culture, throat 2023 024 [facility] (Registration ), [address] [place] [address] , [place], [address], 09/04/2023 07:34:29 influenza virus A + B + SARS-CoV- 2 (COVID19) Ag panel, rapid IA, upper respirato ry specimen [address], [address], [place], [address], 08/28/2023 12:07:25 rapid strep group A, throat 2023 024 [email or web address] [facility], [address], [address], [place], [address], 06/01/2024 10:11:10 culture, throat 2023 024 [email or web address] [facility] (Registration ), [address] [place] [address] [place], [address], 06/01/2024 10:11:10 Referral None recorded. Procedures None recorded. Surgeries None recorded. Imaging None recorded. Medication Orders polymyxin B sulfate 10,000 unit-trim ethoprim 1 mg/mL eye drops 2023 024 [facility], [address] [place], [address], 11/06/2023 09:21:22 ofloxacin 0.3 % eye drops 2023 024 [facility], [address] [place], [address], 11/06/2023 09:21:19 amoxicill in 875 mg-potass ium clavulana te 125 mg tablet 2023 024 ROBER [facility], [address] [place], [address], 06/01/2024 09:36:35 Patient TargetsNo targets recorded. Patient Instructions Encounter Date Encounter Id Patient Instructions Last Modified By Organization Details Last Modified Time 09/01/2023 [id number] stop the eye drops [email or web address] Not available 09/01/2023 15:54:30 11/06/2023 [id number] You have a cold and a left-sided ear infection, take antibiotics every 12 hours. I sent you a weeks worth but it is okay to stop if your pain is 5 days, then discard leftover medicine (this decreases your chances of having antibiotic associated problems) This is safe in breast-feeding Stay very well-hydrated, use Tylenol as needed as pain, use saline nasal drops to help with nasal congestion and headache, expect resolution within 7 to 14 days. Please call with any questions or concerns. [email or web address] Not available 11/06/2023 09:56:48 06/01/2024 [id number] 1. Your rapid strep is negative and thus a throat culture is sent for confirmatory measures. This will take 2 days to fully resolve and we will contact you when it is available. You should expect to hear from us on Thursday to go over results and see how you are doing. 2. Because you are Tylenol is really the only pain medication you should be taking. Please use as needed. 3. I also recommend using salt water gargle, honey and tea, any combination of hot or cool liquids to help soothe discomfort. Please make sure you are staying well-hydrated and getting some nutrition. [email or web address] Not available 06/01/2024 10:05:50 Reason for Referral None Reported. Results Created Date Observation Date Name Description Value Unit Range Abnormal Flag Note LastModifiedBy Organization Detail LastModifiedTime 08/28/19 24 08/29/2023 THROA T AEROB IC CULTU RE throat aerobic culture Throa t Aerob ic Cultu re APPEA JULIO Nat l Sidney GROWT H(REP ORT) MODER ATE GROWT H Day 1 Resul t ISOLA KIN BELOW O:NF (ORGA NISM ID: [id number]) - NAT L SIDNEY Throa t Aerob ic Cultu re (ORGA NISM ID: 1.1) - GROWT H(REP ORT) (ORGA NISM ID: 1.1) - MODER ATE GROWT H Not Available [address] [place], [address] 08/29/2023 11:48:40 08/28/19 24 08/29/2023 THROA T AEROB IC CULTU RE throat aerobic culture Throa t Aerob ic Cultu re APPEA JULIO Nat l Sidney GROWT H(REP ORT) MODER ATE GROWT H Day 1 Resul t ISOLA KIN BELOW O:NF (ORGA NISM ID: 1.1) - NAT L SIDNEY Throa t Aerob ic Cultu re (ORGA NISM ID: 1.1) - GROWT H(REP ORT) (ORGA NISM ID: 1.1) - MODER ATE GROWT H Not Available [address] , [place], [address] 08/29/2023 11:49:38 08/28/19 24 08/30/2023 THROA T AEROB IC CULTU RE throat aerobic culture Throa t Aerob ic Cultu re APPEA JULIO Nat l Sidney APPEA JULIO Nat l Sidney GROWT H(REP ORT) MODER ATE GROWT H GROWT H(REP ORT) MODER ATE GROWT H Day 1 Resul t ISOLA KIN BELOW Day 2 Resul t ISOLA KIN BELOW O:NF (ORGA NISM ID: 1.1) - NAT L SIDNEY Throa t Aerob ic Cultu re (ORGA NISM ID: 1.1) - GROWT H(REP ORT) (ORGA NISM ID: 1.1) - MODER ATE GROWT H Not Available [address] , [place], [address] 08/30/2023 10:21:25 08/28/19 24 08/28/2023 influ robbin virus A + B + SARS- CoV-2 (COVI D19) Ag panel , rapid IA, upper respi rator y speci men Influenza A negati ve Not Available [facility] [address], [place], [address], 08/28/2023 11:39:02 08/28/19 24 08/28/2023 influ robbin virus A + B + SARS- CoV-2 (COVI D19) Ag panel , rapid IA, upper respi rator y speci men Influenza B negati ve Not Available [facility] [address], [place], [address], 08/28/2023 11:39:02 08/28/19 24 08/28/2023 influ robbin virus A + B + SARS- CoV-2 (COVI D19) Ag panel , rapid IA, upper respi rator y speci men SARS-COV-2 negati ve Not Available [facility] [address], [place], [address], 08/28/2023 11:39:02 08/28/19 24 08/28/2023 rapid strep group A, throa t Strep negati ve Not Available [facility] [address], [place], [address], 08/28/2023 11:19:00 08/28/19 24 08/28/2023 rapid strep group A, throa t Sent for confirmation : Yes Not Available [facility] [address], [place], [address], 08/28/2023 11:19:00 06/01/20 24 06/01/2024 rapid strep group A, throa t Strep negati ve Not Available [address], [place], [address], 06/01/2024 09:52:00 06/01/20 24 06/01/2024 rapid strep group A, throa t Sent for confirmation : Yes Not Available [facility] - [address], [place], [address], 06/01/2024 09:52:00 08/28/19 24 08/28/2023 ED visit note ED Visit Note PATIEN T NAME: Han Connor UNIT #: [id number] ADMITT ING PROVID ER: Victor Manuel Weiss ACCOUN T #: [id number] PRIMAR Y CARE PROVID ER: Coni Oliveros DATE OF ADMIT: 08/28 : 2001 Addend a Did not see this harjinder t, see Dr. Be 's note. Addend um dictat ed by Victor Manuel Weiss 1638 1638 Transc ribed By: CIARRA Mccormick 1638 Cosign ed by CRYSTAL hilton Date/T vero Provid er Initia samreen Rainer ntatio n: 16:35 . Relate d Data Home Medica tions Medica tion Instru ctions Record ed Confir med prenat .vits, danae,mi n-iron -folic 1 tab PO DAILY noreth indron e (contr acepti ve) 0.35 0.35 mg PO DAILY #84 tabs mg tablet (Zulema- BE) nystat in 100,00 0 unit/m L oral 1 ml PO DAILY thrush on nipple suspen stanislav #250 mL Previo us Rx's Medica tion Instru ctions Record ed noreth indron e (contr acepti ve) 0.35 0.35 mg PO DAILY #84 tabs mg tablet (Zulema- BE) nystat in 100,00 0 unit/m L oral 1 ml PO DAILY thrush on nipple suspen stanislav #250 mL Allerg ies Allerg y/AdvR eac Type Severi ty Reacti on Status Date / Time No Known Allerg ies Allerg y Verifi ed 16:34 Genera l Stated Compla int: GenMed ical LYUDMILA: 4 Course Vital Signs Vital signs: Vital Signs Temper ature 36.4 C L 16:25 Pulse 95 H 16:25 Respir atory Rate 17 16:25 Blood Pressu re 117/71 16:25 Pulse Oximet ry 98 16:25 Temper ature 36.4 C L 16:25 Temper ature Source Tempor al Artery Scan 16:25 Pulse 95 H 16:25 Respir atory Rate 17 16:25 Respir atory Effort Normal , Non-La bored 16:33 Blood Pressu re 117/71 16:25 Pulse Oximet ry 98 16:25 Oxygen Delive ry Method Room Air 16:25 Oxygen Flow Rate 0 16:25 Pain Level 8 16:25 Medica l Decisi on Making Qualit y:SDOH Health Relate d Social Needs: No Data to Displa y PFSH All Active Proble ms (Updat ed @ 14:21 by Hillary Rivera ) Postpa rtum care and examin ation of lactat ing mother (Acute ) Chroni c GERD (Acute ) Depres stanislav (Chron ic) Heart murmur (Acute ) Learni ng diffic ulty (Chron ic) IEP signed 8 Medica l Histor y (Updat ed @ 14:21 by Hillary Rivera ) Term pregna ncy delive red Uterin e contra ctions Group B Strept ococcu s rafy r state affect ing pregna ncy Matern al varice lla, non-im mune Mariju jose a use during pregna ncy Pregna ncy Comple te miscar riage Pelvic pain . + upt in [facility] ED. Serial hCG normal rise. Plan viabil ity u/s in May 2022. 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 : Never Smokin g risk assess ment perfor med?: Yes Alcoho l Intake : curren t Alcoho l Intake freque ncy: holida ys/spe cial occasi ons only Alcoho l type: hard liquor Drug use: Never Substa nce use type: mariju jose a Durati on: 45-60 minute s/day Freque ncy: daily Seatbe lt use: always Helmet use: No Fire exting uisher in home: Yes Carbon monox detect or in home: Yes Firear ms in home: No Do you feel safe at home: Yes Do you feel safe in your relati onship ?: Yes Female Reprod uctive Histor y Menstr ual Age of Menarc he: 16 Durati on of menses : 6-7 days contro l method : none and implan samreen Prenat al Histor y Pregna ncy Histor y Gravid a 2 Para 1 Hx # Term Pregna ncies 1 Multip le births 0 Hx # Preter m Pregna ncies 0 Ectopi c pregna ncies 0 AB induce d 0 Hx Number of Living Childr en 1 AB sponta neous 1 Past Pregna ncies Del. Date GA/Wee ks # Preg Succ Route Wgt Sex Labor Lgth Anesth esia Locati on Prov Compli c 7 No No 40 No Yes vagina l 2239.6 12 g Male 12hrs 32 min J.Selvin rivas,C [place] Delive ry Date: Last Update d by: RICHIE Chandler Delive ry Date: Last Update d by: RICHIE Ly Discha rge Plan Discha rge Detail s Chief Compla int: GenMed ical Primar y Care Provid er: Coni Oliveros ED Provid er: Yash Be Home Meds and New Rx's Prescr iption s: No Action noreth indron e (contr acepti ve) [Zulema- BE] 0.35 mg tablet 0.35 mg PO DAILY Qty: 84 2RF Hold Instru ctions : patien t state she is not taking anythi ng prenat .vits, danae,mi n-iron -folic Tablet 1 tab PO DAILY nystat in 100,00 0 unit/m L suspen stanislav 1 ml PO DAILY Qty: 250 0RF Rx Instru ctions : apply to nipple s after feedin g twice daily cc: Coni Oliveros ------ ------ ------ ------ ------ ------ ------ ------ ------ ------ ------ --- Dictat ed by: Victor Manuel Weiss Dictat ed: Time: 1635 Date: 163 Date: Date: Transc ribed Date: Transc ribed Time: 1634 By: KATJA MACKEY This is privil eged, confid ential inform ation, intend ed only for the provid er named. Any use or distri bution by any person other than this provid er is strict ly prohib ited. If you receiv e this report in error, please notify us immedi deyanira at [phone] and return the origin al report to us at the addres s above. Thank you. [email or web address] [facility] [address], [place], [address] 08/31/2023 11:27:37 08/28/19 24 08/28/2023 ED visit note ED Visit Note PATIEN T NAME: Han Connor UNIT #: [id number] ADMITT ING PROVID ER: Victor Manuel Weiss ACCOUN T #: [id number] PRIMAR Y CARE PROVID ER: Coni Oliveros DATE OF ADMIT: 08/28 : 2001 Addend a Did not see this patiradha t, see Dr. Be 's note. Addend um dictat ed by Victor Manuel Weiss 1638 163 Transc ribed By: CIARRA Mccormick 163 Cosign ed by CRYSTAL hilton Date/T vero Provid er Initia samreen Docume ntatio n: 16:35 . Relate d Data Home Medica tions Medica tion Instru ctions Record ed Confir med prenat .vits, danae,mi n-iron -folic 1 tab PO DAILY noreth indron e (contr acepti ve) 0.35 0.35 mg PO DAILY #84 tabs mg tablet (Zulema- BE) nystat in 100,00 0 unit/m L oral 1 ml PO DAILY thrush on nipple suspen stanislav #250 mL Previo us Rx's Medica tion Instru ctions Record ed noreth indron e (contr acepti ve) 0.35 0.35 mg PO DAILY #84 tabs mg tablet (Zulema- BE) nystat in 100,00 0 unit/m L oral 1 ml PO DAILY thrush on nipple suspen stanislav #250 mL Allerg ies Allerg y/AdvR eac Type Severi ty Reacti on Status Date / Time No Known Allerg ies Allerg y Verifi ed 16:34 Genera l Stated Compla int: GenMed ical LYUDMILA: 4 Course Vital Signs Vital signs: Vital Signs Temper ature 36.4 C L 16:25 Pulse 95 H 16:25 Respir atory Rate 17 16:25 Blood Pressu re 117/71 16:25 Pulse Oximet ry 98 16:25 Temper ature 36.4 C L 16:25 Temper ature Source Tempor al Artery Scan 16:25 Pulse 95 H 16:25 Respir atory Rate 17 16:25 Respir atory Effort Normal , Non-La bored 16:33 Blood Pressu re 117/71 16:25 Pulse Oximet ry 98 16:25 Oxygen Delive ry Method Room Air 16:25 Oxygen Flow Rate 0 16:25 Pain Level 8 16:25 Medica l Decisi on Making Qualit y:SDOH Health Relate d Social Needs: No Data to Displa y PFSH All Active Proble ms (Updat ed @ 14:21 by Hillary Rivera ) Postpa rtum care and examin ation of lactat ing mother (Acute ) Chroni c GERD (Acute ) Depres stanislav (Chron ic) Heart murmur (Acute ) Learni ng brooke davis (Chron ic) IEP signed 8 Medica l Histor y (Updat ed @ 14:21 by Hillary Rivera ) Term pregna ncy delive red Uterin e contra ctions Group B Strept ococcu s rafy r state affect ing pregna ncy Matern al varice lla, non-im mune Mariju jose a use during pregna ncy Pregna ncy Comple te miscar riage Pelvic pain . + upt in [facility] ED. Serial hCG normal rise. Plan viabil ity u/s in May 2022. 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 : Never Smokin g risk assess ment perfor med?: Yes Alcoho l Intake : curren t Alcoho l Intake freque ncy: holida ys/spe cial occasi ons only Alcoho l type: hard liquor Drug use: Never Substa nce use type: mariju jose a Durati on: 45-60 minute s/day Freque ncy: daily Seatbe lt use: always Helmet use: No Fire exting uisher in home: Yes Carbon monox detect or in home: Yes Firear ms in home: No Do you feel safe at home: Yes Do you feel safe in your relati onship ?: Yes Female Reprod uctive Histor y Menstr ual Age of Menarc he: 16 Durati on of menses : 6-7 days contro l method : none and implan samreen Prenat al Histor y Pregna ncy Histor y Gravid a 2 Para 1 Hx # Term Pregna ncies 1 Multip le births 0 Hx # Preter m Pregna ncies 0 Ectopi c pregna ncies 0 AB induce d 0 Hx Number of Living Childr en 1 AB sponta neous 1 Past Pregna ncies Del. Date GA/Wee ks # Preg Succ Route Wgt Sex Labor Lgth Anesth esia Locati on Prov Compli c 7 No No 40 No Yes vagina l 2239.6 12 g Male 12hrs 32 min JLola rivas,Roxanne [place] Delive ry Date: Last Update d by: RICHIE Chandler Delive ry Date: Last Update d by: Sunshine del real, RICHIE Murillo Discha rge Plan Discha rge Detail s Chief Compla int: GenMed ical Primar y Care Provid er: Coni Oliveros ED Provid er: Yash Be Home Meds and New Rx's Prescr iption s: No Action noreth indron e (contr acepti ve) [Zulema- BE] 0.35 mg tablet 0.35 mg PO DAILY Qty: 84 2RF Hold Instru ctions : patien t state she is not taking anythi ng prenat .vits, danae,mi n-iron -folic Tablet 1 tab PO DAILY nystat in 100,00 0 unit/m L suspen stanislav 1 ml PO DAILY Qty: 250 0RF Rx Instru ctions : apply to nipple s after feedin g twice daily cc: Coni Oliveros ------ ------ ------ ------ ------ ------ ------ ------ ------ ------ ------ --- Dictat ed by: Victor Manuel Weiss Dictat ed: Time: 1635 Date: 1637 Date: Date: Transc ribed Date: Transc ribed Time: 1634 By: KATJA OS This is privil eged, confid ential inform ation, intend ed only for the provid er named. Any use or distri bution by any person other than this provid er is strict ly prohib ited. If you receiv e this report in error, please notify us immedi ately at and return the origin al report to us at the addres s above. Thank you. [email or web address] [facility] [address], [place], [address] 08/31/2023 11:27:37 08/28/1908/28/2023 ED visit note ED Visit Note HARJINDER Freeman NAME: Han Connor UNIT #: [id number] ADMITT ING PROVID ER: Yash Be M.D. ACCOUN T #: [id number] PRIMAR Y CARE PROVID ER: Coni Oliveros DATE OF ADMIT: 08/28 : 1999 HPI Genera l Mode of arriva l: ambula tory . Date/T vero Provid er Initia samreen Docume ntatio n: 16:35 . Limita tions to Docume ntatio n: no limita tions . Inform ation obtain ed by: stellaradha freeman . HPI Narrat michelle: 23-yea r-old female presen ts with chief compla int of sore throat . Harjinder freeman notes right- sided sore throat the past 1 day. She also notes associ ated rednes s to her right eye. She has bilate ral ear discom fort. Harjinder freeman was seen at PCPs office today and had negati ve COVID testin g as well as negati ve rapid strep testin g. She was prescr ibed ophtha lmolog ic antibi otic. She was told she was good to be given a dose of oral steroi d which she did not receiv e. She notes contin ued pain. No associ ated fever. Relate d Data Home Medica tions Medica tion Instru ctions Record ed Confir med prenat .vits, danae,mi n-iron -folic 1 tab PO DAILY noreth indron e (contr acepti ve) 0.35 0.35 mg PO DAILY #84 tabs mg tablet (Zulema- BE) nystat in 100,00 0 unit/m L oral 1 ml PO DAILY thrush on nipple suspen stanislav #250 mL polymy meron B sulfat e 10,000 ophtha lmic (eye) unit-t rimeth oprim 1 mg/mL eye drops Previo us Rx's Medica tion Instru ctions Record ed noreth indron e (contr acepti ve) 0.35 0.35 mg PO DAILY #84 tabs mg tablet (Zulema- BE) nystat in 100,00 0 unit/m L oral 1 ml PO DAILY thrush on nipple suspen stanislav #250 mL Allerg ies Allerg y/AdvR eac Type Severi ty Reacti on Status Date / Time No Known Allerg ies Allerg y Verifi ed 16:34 Genera l Stated Compla int: GenMed ical LYUDMILA: 4 Review of System s All system s review ed are unrema rkable except as noted in HPI and below Consti tution al Consti tution al: Denies fever( s) ENT Ears, Nose, Mouth, and Throat : Report s as per HPI Exam Const Genera l: gayle ative and no acute distre ss HENMT Ears: visual developer al ears normal and TM's normal bilate rally Genera l nose exam: visual developer al nose normal Face and sinus: normal facial exam Mouth: moist mucous membra norman Throat : uvula midlin e, no perito nsilla r masses and human resources benefits specialist ior oropha rynx abnorm al erythe ma (b/l) and exudat es (right ) Other: No strido r, no trismu s Eyes Conjun ctivae : conjun ctival abnorm ality right conjun ctival inject ion; withou t discha rge Sclera : normal sclera e Pupils : PERRL EOM: EOM intact bilate rally Neck Neck: trache a midlin e, supple and lympha denopa thy (Right anteri or cervic al) Resp Auscul tation : clear to auscul tation bilate rally, no rales, no rhonch i and no wheeze s Cardio Rate: regula r rate and not tachyc ardic Rhythm : regula r rhythm GI Palpat ion: no masses and nonten dee Skin Genera l skin exam: no rashes or lesion s noted Neuro Genera l: patien t alert, patien t awake and tone normal Course Vital Signs Vital signs: Vital Signs Temper ature 36.4 C L 16:25 Pulse 95 H 16:25 Respir atory Rate 17 16:25 Blood Pressu re 117/71 16:25 Pulse Oximet ry 98 16:25 Temper ature 36.4 C L 16:42 Temper ature Source Tempor al Artery Scan 16:42 Pulse 92 H 16:42 Respir atory Rate 17 16:42 Respir atory Effort Normal , Non-La bored 16:42 Respir atory Depth Normal 16:42 Respir atory Patter n Normal 16:42 Blood Pressu re 117/62 16:42 Pulse Oximet ry 98 16:42 Oxygen Delive ry Method Room Air 16:42 Oxygen Flow Rate 0 16:25 Pain Level 8 16:25 Medica l Decisi on Making 23-yea r-old female here with 1 day of sore throat and right eye rednes s. Harjinder freeman seen by PCP today and had negati ve COVID test as well as negati ve rapid strep. She is here with contin ued pain worse right throat . She has no strido r or trismu s. Harjinder freeman does have conjun ctivit is right eye. She has no pain with extrao cular eye moveme nts and no perior bital swelli ng or inflam mation . Suspec t viral infect ion. Plan to treat pharyn gitis with Decadr on. Plan to contin ue treati ng conjun ctivit is with ophtha lmolog ic antibi otic as prescr ibed by PCP fabienne ag. Treatm ent plan was discus sed with the patiradha t. Plan for outpat ient follow -up with PCP. Dispos ition decisi on was made weighi ng the risks and benefi ts of hospit alizat ion versus outpat ient treatm ent, the risk for furthe r decomp ensati on, and the patien t's wishes . The patien t was stable and reques samreen discha rge. Prior to discha rge, my usual and custom danii return precau tions were review ed with the patien t - this includ ed follow -up instru ctions and reason to return to the emerge ncy depart ment if condit ion worsen s, does not improv e as expect ed, or other new concer ns arise. Qualit y:SDOH Health Relate d Social Needs: No Data to Displa y PFSH All Active Proble ms (Updat ed @ 16:58 by Yash Be MD) Acute pharyn gitis (Acute ) Acute conjun ctivit is, right eye (Acute ) Postpa rtum care and examin ation of lactat ing mother (Acute ) Chroni c GERD (Acute ) Depres stanislav (Chron ic) Heart murmur (Acute ) Learni ng diffic ulty (Chron ic) IEP signed 8 Medica l Histor y (Revie thu @ 16:52 by Yash Be MD) Term pregna ncy delive red Uterin e contra ctions Group B Strept ococcu s rafy r state affect ing pregna ncy Matern al varice lla, non-im mune Mariju jose a use during pregna ncy Pregna ncy Comple te miscar riage Pelvic pain . + upt in [facility] ED. Serial hCG normal rise. Plan viabil ity u/s in May 2022. 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 Smokin g risk assess ment perfor med?: Yes Alcoho l Intake : curren t Alcoho l Intake freque ncy: holida ys/spe cial occasi ons only Alcoho l type: hard liquor Drug use: Never Substa nce use type: mariju jose a Durati on: 45-60 minute s/day Freque ncy: daily Seatbe lt use: always Helmet use: No Fire exting uisher in home: Yes Carbon monox detect or in home: Yes Firear ms in home: No Do you feel safe at home: Yes Do you feel safe in your relati onship ?: Yes Female Reprod uctive Histor y Menstr ual Age of Menarc he: 16 Durati on of menses : 6-7 days contro l method : none and implan samreen Prenat al Histor y Pregna ncy Histor y Gravid a 2 Para 1 Hx # Term Pregna ncies 1 Multip le births 0 Hx # Preter m Pregna ncies 0 Ectopi c pregna ncies 0 AB induce d 0 Hx Number of Living Childr en 1 AB sponta neous 1 Past Pregna ncies Del. Date GA/Wee ks # Preg Succ Route Wgt Sex Labor Lgth Anesth esia Locati on Prov Compli c 7 No No 40 No Yes vagina l 2239.6 12 g Male 12hrs 32 min JLola rivas,C NM Delive ry Date: Last Update d by: RICHIE Chandler Delive ry Date: Last Update d by: Sunshine LaBoun ty, CHIEF OF STAFF Nabil Murillo Discha rge Plan Dispos ition Patien t Dispos ition: Home Condit ion: Stable Discha rge Detail s [facility] Impres stanislav: Acute conjun ctivit is, right eye, Acute pharyn gitis Primar y Care Provid er: Coni Oliveros ED Provid er: Yash Be Home Meds and New Rx's Prescr iption s: No Action noreth indron e (contr acepti ve) [Zulema- BE] 0.35 mg tablet 0.35 mg PO DAILY Qty: 84 2RF Hold Instru ctions : patien t state she is not taking anythi ng prenat .vits, danae,mi n-iron -folic Tablet 1 tab PO DAILY nystat in 100,00 0 unit/m L suspen stanislav 1 ml PO DAILY Qty: 250 0RF Rx Instru ctions : apply to nipple s after feedin g twice daily Discha rge Instru ctions Instru ctions : Pharyn gitis (ED), Conjun ctivit is (ED) Additi onal Instru ctions : Please contin ue eyedro ps as prescr ibed. Please take ibupro fen over the counte r. Take 400mg by mouth every 6 hours as needed for pain. Please contac t your primar y care physic james to arrang e follow -up. Return to the ER immedi ately for any worsen ing or new concer sissy sympto ms. Referr als: Coni Oliveros [Prima ry Care Provid er] - cc: Coni Oliveros ------ ------ ------ ------ ------ ------ ------ ------ ------ ------ ------ --- Dictat ed by: CORBY RAMIREZ,MAIDA Pichardo Dictat ed: Time: 1648 Date: 1657 Date: Date: Transc ribed Date: Transc ribed Time: 1648 By: CHERELLE Romeo This is privil eged, confid ential inform ation, intend ed only for the provid er named. Any use or distri bution by any person other than this provid er is strict ly prohib ited. If you receiv e this report in error, please notify us immpool mcmillan at [phone] and return the origin al report to us at the addres s above. Thank you. [email or web address] [facility] [address], [place], [address] 08/31/2023 11:27:38 10/11/19 24 10/11/2023 vrad repor t Patien t Name: Han Connor Unit #: [id number] Loc: ER Orderi ng Provid er: Clint freeman #: [id number] Status : REG ER Primar y Care Provid er: Coni Oliveros Date of Exam: Sex: F : 1999 Age: 23 Exam(s ) PROCED URE INFORM ATION: Exam: XR Chest Exam date and time: 024 8:50 PM Age: 23 years old Clinic al indica tion: Cough and shortn ess of breath ; Patien t HX: Shortn ess of breath cough TECHNI QUE: Imagin g protoc ol: Radiol ogic exam of the chest. Views: 2 views. COMPAR GLEN: CT ABDOME N PELVIS W 2021 11:24 AM FINDIN GS: Lungs: Unrema rkable . No consol idatio n. Pleura l spaces : Unrema rkable . No pleura l effusi on. No pneumo thorax . Heart/ Medias tinum: Unrema rkable . No cardio megaly . Bones/ joints : Thorac ic scolio sis. No acute skelet al findin gs IMPRES STANISLAV: 1. No acute findin gs. 2. Clear lung watts and pleura l space. 3. Thorac ic spine scolio sis. Dictat ed and Authen ticate d by: Per landry MD. Orderi ng:P.N RISHI Isaacs MD Access ion#=[id number] Mayuri jimenez By: CC: ------ ------ ------ ------ ------ ------ ------ ------ ------ ------ ------ ------ ---- Dictat ed By: Report s vrad 2049 Transc ribed By: Trudi Cordero 2049 This is privil eged, confid ential inform ation intend ed only for the provid er named. Any use or distri bution by any person other than this provid er is strict ly prohib ited. If you receiv e this report in error, please notify us immedi leónly at [phone] and return the origin al report to us at the addres s above. Thank- you. [facility] [address] [place], [address] 10/11/2023 22:48:17 10/12/19 24 10/12/2023 x-ray imagi ng reji freeman Name: Han Connor Unit #: [id number] Loc: ER Orderi ng Provid er: Meg Torres M.D. Accoun t #: [id number] Status : DEP ER Primar y Care Provid er: Coni Oliveros Date of Exam: Sex: F Admiss ion Date: : 1999 Age: 23 Exam(s ) XR CHEST 2V PA LATERA L EXAM: XR CHEST 2V PA LATERA L CLINIC AL HISTOR Y: Shortn ess of breath cough TECHNI QUE: 2D digita l imagin g was perfor med. Two views. COMPAR GLEN: No exams were availa ble for compar glen FINDIN GS: HEART: Normal size. Aorta: Not dilate d. PULMON DANII VASCUL ATURE: Normal . LUNGS: Questi on of vague patchy infilt rate above the left diaphr agm. PLEURA L SPACE: No pleura l effusi on or pneumo thorax . BONE:S colios is. Soft tissue s: Unrema rkable . IMPRES STANISLAV: Questi on left lower lobe infilt rate. DATA REPOSI TORY: RADIAT ION DOSE DELIVE RED: Ordere d By: Mge Torres M.D. CC: ------ ------ ------ ------ ------ ------ ------ ------ ------ ------ ------ ------ - Dictat ed By: Jeanne Workman 843 Transc ribed By: Nilesh Sharif 843 This is privil eged, confid ential inform ation intend ed only for the provid er named. Any use or distri bution by any person other than this provid er is strict ly prohib ited. If you receiv e this report in error, please notify us immedi ately at [phone] and return the origin al report to us at the addres s above. Thank- you. [facility] [address], [place], [address] 10/12/2023 11:22:12 04/04/20 24 05/22/2022 nabor olivier/trudi freeman No observ ation record ed. [email or web address] Not Available 04/04 03:49:54 Result Notes None recorded. Problems Name Problem SNOMED Code Status Onset Date Resolution Date Notes Provider Name and Address Organization Details Recorded Time Sore throat 073113067 Active 2023 YVONNE LANDEROS PA-C [address], [place], [address] , [facility]. 4 10:08:11 Acute pharyngi tis 389939396 Completed 202102/25/2022 02/12/20 22 - Comments only - Kenzie Escalante [employer] ATTEND[employer] - Likely viral in nature. Reassscott olivier exam today. Continue with salt water gargles, may trial short course of Cepacol throat lozenges , continue with cough drops, Tylenol for acute discomfo rt. Would expect slow improvem ent over the next several days. Reviewed return precauti ons, includin g for worsenin g swelling of her tonsils, fever or chills, any difficul ty with swallowi ng or breathin g. Reviewed indicati ons for antibiot ic therapy. Simone verbaliz ed understa nding and agreemen t plan discussi on above. Problem Code: J02.9; Problem Code Type: ICD-10; Not Available [facility] 3 05:20:55 Nicotine dependen ce 78999865 Active 2021 Problem Code: F17.200; Problem Code Type: ICD-10; Not Available [facility] 3 05:20:55 History of psychiat shree disorder 365834793 Active 2021 Problem Code: Z86.59; Problem Code Type: ICD-10; Not Available [facility] 3 05:20:55 History of cardiova scular disease 404487163 Active 2021 Problem Code: Z86.79; Problem Code Type: ICD-10; Not Available [facility] 3 05:20:55 Developm ental academic disorder 2358122 Active 2021 Problem Code: F81.9; Problem Code Type: ICD-10; Not Available [facility] 3 05:20:55 Anxiety disorder 957721370 Active 202104/29/20 22 - Comments only - Kenzie Escalante [employer] ATTEND[employer] - With panic attacks. Establis hed with counselnaz olivier. Several major life events, includin g recent miscarri age, and of her friend. She also abruptly disconti nued cannabis use over the past several weeks. Prior cannabis use although use, starting early a.m. Currentl y only using a small amount in the evening. She is also abruptly disconti nued tobacco and caffeine use over the past week. 3 days of sertrali ne 25 mg daily, denies any side effects. Has not been using hydroxyz ine second to drowsine ss. Labs last week, UDS, without acute concerns . CBD gummy earlier today helped with calming effect. She was seen acutely in the ER several days ago (?), Prescrib ed lorazepa m short course. She has several pills at home, did initiall y help with acute anxiety. She is continui ng with counseli soy. She does have schedule d follow-u p with her PCP next week. Suspect abrupt cannabis reductio n may be contribu ting and/or exacerba ting current symptoms . May trial gabapent in 100 mg 3 times daily as needed. 7 days prescrib ed. Reevalua te therapy with PCP. Continue with Zoloft. Try and avoid addition al cannabis use, limit to evening as needed. Instruct ions below. Strict follow-u p precauti ons reviewed . Verbal safety plan in place. 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 PrN use of hydroxyz ine for now. discusse d proprano lol as an option as well if this not helpful also adding a daily antianxi ety med like zoloft or escitalo pram. Problem Code: F41.0; Problem Code Type: ICD-10; Not Available [facility] 3 05:20:55 Miscarri age without complica tion 21412537 Active 2021 Problem Code: O03.9; Problem Code Type: ICD-10; Not Available [facility] 3 05:20:55 Counselnaz olivier Completed 202104/05/2022 04/04/20 22 - Comments only - Coni Oliveros REPRODUCTIVE SURGEON - establis hed on my panel Problem Code: Z71.89; Problem Code Type: ICD-10; Not Available [facility] 3 05:20:55 Cannabis abuse 18877020 Active 2021 Problem Code: F12.10; Problem Code Type: ICD-10; Not Available [facility] 3 05:20:56 Disorder of nasal sinus 9936686 Active 2021 Not Available [facility] 3 05:20:56 Upper respirat ory tract infectio n caused by Influenz a virus 43666052039 950341 Active 2021 Problem Code: J11.1; Problem Code Type: ICD-10; Not Available [facility] 3 05:20:56 Otalgia of right ear 4986665568 Active 2021 Problem Code: H92.01; Problem Code Type: ICD-10; Not Available [facility] 3 05:20:56 Acute pharyngi tis 073728472 Active 2021 Problem Code: J02.9; Problem Code Type: ICD-10; Not Available [facility] 3 05:20:56 Stomatit is 27381198 Active 2022 Problem Code: K12.1; Problem Code Type: ICD-10; Not Available [facility] 3 05:20:56 Ingrowin g nail 435810593 Completed 201504/04/2022 Problem Code: L60.0; Problem Code Type: ICD-10; Not Available [facility] 3 05:20:56 Heart murmur 13358276 Completed 202104/15/2023 Problem Code: R01.1; Problem Code Type: ICD-10; Not Available [facility] 3 05:20:56 Pregnanc y 09749735 Completed 202104/04/2022 Problem Code: Z33.1; Problem Code Type: ICD-10; Not Available [facility] 3 05:20:56 Acute upper respirat ory infectio n 50961258 Completed 201504/04/2022 Problem Code: J06.9; Problem Code Type: ICD-10; Not Available [facility] 3 05:20:57 Acute conjunct ivitis 28502608 Active 2023 MEG mckeon [facility] 4 11:44:32 Acute tonsilli tis 96077149 Active 2023 MEG mckeon [facility] 4 15:54:44 Acute conjunct ivitis 21976889 Active 2023 MEG mckeon [facility] 4 15:58:11 Viral upper respirat ory tract infectio n 129814938 Active [address], [place], [address] , [facility] 09:47:45 Acute left otitis media 911459490 Active 2023 ADDIS HOOD [address], [place], [address] , [facility] 09:54:04 Problem Notes None recorded. Procedures Surgical History None recorded. Imaging Results Imaging Date Name Status LastModified by Organiz ation Details LastModified Time 08/28/2023 ED visit note completed [email or web address] [address] [place], [address] 08/31/2023 11:27:37 08/28/2023 ED visit note completed [address] [place], [address] 08/31/2023 11:27:37 08/28/2023 ED visit note completed [id number] [address] [place], [address] 08/31/2023 11:27:38 10/11/2023 vrad report completed [id number] [place] [address] [place], [address] 10/11/2023 22:48:17 10/12/2023 x-ray imaging report completed [id number] [place] [address] [place], [address] 10/12/2023 11:22:12 05/22/2022 imaging/diag nostic result completed [email or web address] Information not available 04/04/2024 03:49:54 Procedure Notes None recorded. Medical Equipment None Reported. Allergies No known drug allergies Medications Name Sig Start Date Stop Date Status Note LastModified by Organization Details LastModified Time nystatin 100,000 unit/mL oral suspensio n TAKE 1ML BY MOUTH TO AFFECTED AREA(S) THREE TIMES A DAY; ALLOW TO AIR DRY 06/01 completed Not Available Not Available Not Available prednison e 10 mg tablet TAKE 4 TABLETS BY MOUTH ONCE DAILY FOR 3 DAYS, THEN TAKE TWO TABLETS ONCE A DAY FOR 3 DAYS, THEN TAKE ONE TABLET BY MOUTH ONCE A DAY FOR 3 D 11/05 completed Not Available Not Available Not Available clindamyc in HCl 300 mg capsule Take 1 tab by mouth four times a day 12/11 completed Dental prescrip tion Not Available Not Available Not Available fosfomyci n trometham ine 3 gram oral packet TAKE 3GM ORALLY ONCE 08/28 completed Not Available Not Available Not Available ofloxacin 0.3 % eye drops INSTILL ONE DROP INTO AFFECTED EYE(S) FOUR TIMES A DAY 11/05 completed Not Available Not Available Not Available amoxicill in 500 mg tablet Take one tab by mouth three times a day 06/25 completed Dental prescrip tion Not Available Not Available Not Available pantopraz ole 20 mg tablet,de layed release TAKE ONE TABLET BY MOUTH EVERY DAY 08/28 completed Not Available Not Available Not Available oseltamiv ir 75 mg capsule Take 1 capsule by mouth twice a day 07/02 completed Not Available Not Available Not Available polymyxin B sulfate 10,000 unit-trim ethoprim 1 mg/mL eye drops INSTILL ONE DROP INTO AFFECTED EYE(S) EVERY 6 HOURS 11/05 completed Not Available Not Available Not Available sertralin e 25 mg tablet Take 1 tablet by mouth once a day 08/28 completed Not Available Not Available Not Available gabapenti n 100 mg capsule Take 1 capsule by mouth three times a day as needed 08/28 completed Not Available Not Available Not Available SF 5000 Plus 1.1 % dental cream Use as directed 02/11 completed Dental prescrip tion Not Available Not Available Not Available amoxicill in 875 mg-potass ium clavulana te 125 mg tablet TAKE ONE TABLET BY MOUTH EVERY 12 HOURS FOR 7 DAYS 06/01 completed Not Available Not Available Not Available hydroxyzi ne pamoate 25 mg capsule Take 1/2 to 1 tablet up to 3 time daily 6 hours apart for anxiety/ panic 08/28 completed Not Available Not Available Not Available Mintox Maximum Strength 400 mg-400 mg-40 mg/5 mL oral suspensio n SWISH AND SWALLOW 5ML FOUR TIMES A DAY 08/28 completed Not Available Not Available Not Available + DHA 28 mg iron-800 mcg-200 mg oral pack Take by oral route. active Not Available Not Available No t Available Xulane 150 mcg-35 mcg/24 hr transderm al patch apply 1 patch q week 2015 [facility] Not Available Not Available Not Available Deblitane 0.35 mg tablet TAKE ONE TABLET BY MOUTH EVERY DAY 08/28 completed Not Available Not Available Not Available M-Dryl 12.5 mg/5 mL oral liquid SWISH AND SWALLOW 5ML FOUR TIMES A DAY 08/28 completed Not Available Not Available Not Available Vitals Date Recorded Body height Body mass index (BMI) Body weight Body temperature Oxygen saturation Oxygen saturation in Arterial blood by Pulse oximetry Respiratory rate Systolic blood pressure Diastolic blood pressure Provider Name and Address Organization Details Last Updated DateTime 4 149.86 cm 24.6 kg/m2 84151.2 7 g 98.6 [degF] 99 % 99 % 15 /min 106 mm[Hg] 56 mm[Hg] ANAND SANTANA RN [facility] 4 11:09:36 Date Recorded Body height Body mass index (BMI) Body weight Body temperature Oxygen saturation Oxygen saturation in Arterial blood by Pulse oximetry Respiratory rate Heart rate Systolic blood pressure Diastolic blood pressure Provider Name and Address Organization Details Last Updated DateTime 4 149.86 cm 24.4 kg/m2 37652.6 8 g 98.2 [degF] 99 % 99 % 16 /min 70 /min 96 mm[Hg] 70 mm[Hg] ANAND SANTANA RN [facility] 4 15:37:09 Date Recorded Body height Body mass index (BMI) Body weight Body temperature Respiratory rate Oxygen saturation Oxygen saturation in Arterial blood by Pulse oximetry Heart rate Systolic blood pressure Diastolic blood pressure Provider Name and Address Organization Details Last Updated DateTime 4 149.86 cm 24.4 kg/m2 22230.6 8 g 97.9 [degF] 18 /min 97 % 97 % 78 /min 118 mm[Hg] 77 mm[Hg] Yessi Pereira RN [facility] 4 09:21:03 Date Recorded Body height Body mass index (BMI) Body weight Body temperature Respiratory rate Oxygen saturation Oxygen saturation in Arterial blood by Pulse oximetry Heart rate Systolic blood pressure Diastolic blood pressure Provider Name and Address Organization Details Last Updated DateTime 149.86 cm 28.3 kg/m2 90290.9 3 g 98.4 [degF] 18 /min 99 % 99 % 95 /min 99 mm[Hg] 64 mm[Hg] Yessi Pereira RN [facility] 09:36:23 Social History Question Answer Notes LastModified by Organizat ion Details LastModified Time Tobacco Smoking Status Former Smoker Yessi Pereira RN [facility], [facility] 11/06/2023 09:21:51 What Was The Date Of Your Most Recent Tobacco Screening? 06/01/2024 Information not available 06/01/2024 Has Tobacco Cessation Counseling Been Provided? Yes Information not available 11/06/2023 On What Date Was Tobacco Cessation Counseling Provided? 06/01/2024 Information not available 06/01/2024 Do You Or Have You Ever Used Any Other Forms Of Tobacco Or Nicotine? No Information not available 11/06/2023 Sex: Female Functional Status None recorded. Mental Status None recorded. Family History Nothing Reported Notes:*Problem: Mother anxie ty, depression Father HTN MGF Alcohol abuse PGF,MGF Heart disease Medical History No medical history recorded. Gynecological HistoryNo gynecological history recorded. Obstetrics History GPAL:G 0 P 0 0 0 0 Immunizations Vaccine Type Date Status Provider Name and Address Organization Details Recorded Time MMR 12/24/2006 completed Not Available [facility] 05:03:35 MMR 01/18/2003 completed Not Available [facility] 05:03:35 DTaP, unspecified formulation 2002 completed Not Available [facility] 05/29/2023 05:03:36 DTaP, unspecified formulation 12/24/2006 completed Not Available [facility] 05/29/2023 05:03:36 DTaP, unspecified formulation 2002 completed Not Available [facility] 05/29/2023 05:03:36 DTaP, unspecified formulation 06/22/2003 completed Not Available [facility] 05/29/2023 05:03:36 DTaP, unspecified formulation 2002 completed Not Available [facility] 05/29/2023 05:03:37 meningococcal ACWY, unspecified formulation 09/30/2013 completed Not Available [facility] 05/29/2023 05:03:37 pneumococcal, unspecified formulation 01/18/2003 completed Not Available [facility] 05/29/2023 05:03:37 pneumococcal, unspecified formulation 2002 completed Not Available [facility] 05/29/2023 05:03:37 pneumococcal, unspecified formulation 2002 completed Not Available [facility] 05/29/2023 05:03:37 Tdap 09/30/2013 completed Not Available [facility] 05:03:38 Novel Jpzmmlkbh-[id number], all formulations 05/31/2009 completed Not Available [facility] 05/29/2023 05:03:38 Novel Ndftvelzx-Z2I8-99, all formulations 07/06/2009 completed Not Available [facility] 05/29/2023 05:03:38 HPV, unspecified formulation 09/30/2013 completed Not Available [facility] 05/29/2023 05:03:38 HPV, unspecified formulation 12/07/2013 completed Not Available [facility] 05/29/2023 05:03:38 HPV, unspecified formulation 06/19/2015 completed Not Available [facility] 05/29/2023 05:03:39 Hib, unspecified formulation 2002 completed Not Available [facility] 05/29/2023 05:03:39 Hib, unspecified formulation 2002 completed Not Available [facility] 05/29/2023 05:03:39 Hib, unspecified formulation 06/22/2003 completed Not Available [facility] 05/29/2023 05:03:39 Hib, unspecified formulation 2002 completed Not Available [facility] 05/29/2023 05:03:40 varicella 12/24/2006 completed Not Available [facility] 05:03:40 varicella 06/27/2003 completed Not Available [facility] 05:03:40 Hep B, unspecified formulation 08/18/2003 completed Not Available [facility] 05/29/2023 05:03:40 Hep B, unspecified formulation 2002 completed Not Available [facility] 05/29/2023 05:03:41 Hep B, unspecified formulation 01/18/2003 completed Not Available [facility] 05/29/2023 05:03:41 Hep A, unspecified formulation 03/17/2014 completed Not Available [facility] 05/29/2023 05:03:41 influenza, unspecified formulation 08/18/2003 completed Not Available [facility] 05/29/2023 05:03:41 influenza, unspecified formulation 08/22/2019 completed Not Available [facility] 05/29/2023 05:03:41 influenza, unspecified formulation 06/19/2015 completed Not Available [facility] 05/29/2023 05:03:42 influenza, unspecified formulation 06/27/2003 completed Not Available [facility] 05/29/2023 05:03:42 polio, unspecified formulation 2002 completed Not Available [facility] 05/29/2023 05:03:42 polio, unspecified formulation 12/24/2006 completed Not Available [facility] 05/29/2023 05:03:42 polio, unspecified formulation 2002 completed Not Available [facility] 05/29/2023 05:03:42 polio, unspecified formulation 2002 completed Not Available [facility] 05/29/2023 05:03:43 Past Encounters Encounter ID Performer Location Encounter Start Date Encounter Closed Date Diagnosis/Indication Diagnosis SNOMED-CT Code Diagnosis [id number] [address] [place] [address] 08/28/2023 10:59:43 08/28/2023 11:52:52 Acute pharyngitis 077526355 J02.9 Acute conjunctivitis 537 46680 H10.31 [id number] Keily Palmer PA-C [address],[facility] [address] [place] [address] 08/28/2023 15:27:13 08/28/2023 19:09:17 [id number] MEG ELIDIA [facility] [place] [address] 09/01/2023 15:29:13 09/01/2023 16:01:10 Acute tonsillitis 31320709 J03.90 Acute conjunctivitis 537 85308 H10.33 [id number] [address] [place] [address] 11/06/2023 09:04:21 11/06/2023 09:59:16 Acute left otitis media 970288562 H66.92 [id number] YVONNE LANDEROS PA-C [address] [place] [address] 06/01/2024 09:05:58 06/01/2024 10:07:16 Sore throat 602774252 J02.9 Health Concerns Section Related Observation LastModified by Organization Detai ls LastModified Time None Recorded Concern Status LastModified by Organization Details LastModified Time None Recorded Advance Directives Directive None Recorded Payers Encounter Date Sequence Insurance Name Policy Number Policy Resendez Covered Member ID Resendez Member ID Guarantor Name 08/28/2023 1 [facility] (MEDICAID) Simone Jackson [id number] Simone Jackson 08/28/2023 1 [facility] (MEDICAID) Simone Jackson [id number] Simone Jackson 09/01/2023 1 [facility] (MEDICAID) Simone Jackson [id number] Simone Jackson 11/06/2023 1 [facility] (MEDICAID) Simone Jackson [id number] Simone Eva Renetta 06/01/2024 1 [facility] (MEDICAID) Simone M Renetta [id number] Simone M Renetta Notes Date Note Type Note Provider Name and Address Organization Details Recorded Time 08/28/2023 text/html Sore throat star samreen yesterday, woke up this morning and she had more severe pain. Hurt to swallow. Also some redness/irritation in the right eye this morning. No fevers, but feels run down and a bit warm. works at [employer], at least one COVID exposure this week. She had something similar in May. Given swish/swallow mix, but didn't like it. MEG mckeon, [facility]. 08/28/2023 12:04:15 09/01/2023 text/html Here for follow up Her throat and eye swelling got worse. Went to ED and given steroids, throat is feeling much better. Not sick feeling. Eyes still burn. Less crusty. both sides now. Feels like drops making burning worse MEG mckeon, [facility]. 09/01/2023 16:05:24 11/06/2023 text/html left ear painons et 3 daysfelt clogged yesterdayused APAP and warm compress sore throatrunny noseno SOBsmall NPC generally [id number] months Post partumQuit smoking 5 months ago YASEMIN NOLAN, [employer] [address], [place], [address], [facility]. 11/06/2023 09:59:43 06/01/2024 text/html Simone is a 24-year-old female who is 14 weeks who presents with sore throat that began on Sunday 05/27, today is now Friday 06/01. She has not had fevers. She has had some nausea but no vomiting. Normal bowel bladder. No cough. She has had some difficulty with eating and drinking because of sore throat but is maintaining appropriate hydration and nutrition. She has been using Tylenol to help with sore throat. She has been using cough drops. Getting minimal relief. YVONNE LANDEROS PA-C [address], [place], [address], [facility]. 06/01/2024 10:08:34 OBGyn Episode No OBEpisode recorded.
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
== END 2024-06-01 11:10 | disposition home or self-care (01) ==
LOC: LBN 11:09
PROVIDERS: Visit Provider Physician Assistant Medical
DX: J02.9 Acute pharyngitis, unspecified (principal)
CPT/HCPCS: 87070

== ENCOUNTER 2024-09-09 00:38 | Outpatient (CLI) | payer MEDICAID, SELFPAY ==
[2024-09-09 09:10] LABS: HGB 10.4 g/dL (11.2-15.7); MCH 28.9 pg (27.0-33.0); MCHC 33.5 % (32.0-36.0); MCV 86 fL (80-95); MPV 10.3 fL (8.0-11.0); Platelet Count 317 10^3/uL (130-400); RDW 12.7 % (11.7-14.6); RDW-SD 39.7 fL; WBC 11.59 10^3/uL (4.4-10.8)
[2024-09-09 09:37] LABS: Glucose,1 Hr (Glucola) 104 mg/dL (80-140)
== END 2024-09-09 00:39 | disposition home or self-care (01) ==
PROVIDERS: Advanced Practice Midwife; Visit Provider Advanced Practice Midwife
DX: Z34.93 Encounter for supervision of normal pregnancy, unspecified, third trimester (principal)
CPT/HCPCS: 36415; 82950; 85027

== ENCOUNTER 2024-09-09 11:04 | Outpatient (REF) | payer MEDICAID, SELFPAY ==
[2024-09-09 12:06] LABS: *AMPHETAMINES SCREEN URINE Negative (Negative); *BARBITURATES SCREEN URINE Negative (Negative); *BENZODIAZEPINES SCREEN URINE Negative (Negative); Cannabinoids THC Negative (Negative); Cocaine Screen,Urine Negative (Negative); METHADONE URINE SCREEN Negative (Negative); OPIATES URINE SCREEN Negative (Negative)
[2024-09-09 12:13] LABS: Tricyclic Antidepressants Negative (Negative)
[2024-09-12 10:12] LABS: Fentanyl Scr w/Rfx Confirm Negative ng/mL (<1)
[2024-09-15 06:21] LABS: Buprenorphine Negative ng/mL (Cutoff: 5.0); Norbuprenorphine Negative ng/mL (Cutoff: 2.5)
== END 2024-09-09 11:05 | disposition home or self-care (01) ==
LOC: LBN 11:04
PROVIDERS: Visit Provider Advanced Practice Midwife
DX: Z34.93 Encounter for supervision of normal pregnancy, unspecified, third trimester (principal)
CPT/HCPCS: 80307; 80348

== ENCOUNTER 2024-09-28 03:26 | Outpatient (CLI) | payer MEDICAID, SELFPAY ==
--- NOTE | 2024-09-28 06:15 | DI.US_ITS ---
Exam(s) US OB HUMPHREY WEIGHT EXAM: US OB HUMPHREY WEIGHT CLINICAL HISTORY: 32wk Growth US, F/U liver calcifications. TECHNIQUE: Transabdominal obstetrical ultrasound performed. COMPARISON: US US OB DETAILED MORPHOLOGY from 07/06/2024 FINDINGS: Number of fetuses: 1 position: CEPHALIC Placental location: There is a grade 2 anterior placenta. No evidence of previa. The single liver echogenic focus is again noted. BIOMETRIC DATA: BPD: 8.08cm, 32weeks 3days HC: 29.6cm, 32weeks 5days AC: 24.96cm, 29weeks 1day FL: 5.66cm, 29weeks 5days EFW: 1,478.74g, 3lb 5.17oz, <3% Composite Age: 31weeks RAINA: 11/30/2024 Heart Rate: 136bpm Amniotic fluid index: 15.85cm. The largest pocket measures 4.6 cm. Proximal/Mid/Distal PI:1.01/1.02/1.04 RI:0.64/0.69/0.66 S/D ratio:2.8/3.3/3.0 These values are in the 50th to 95th percentile. IMPRESSION: 1. Single live intrauterine gestation as above. 2. Stable single hepatic calcification. 3. Estimated weight is 1479gms. This is the less than 3rd percentile. 4. Amniotic fluid index is 15.9 cm. The largest pocket measures 4.6 cm. DATA REPOSITORY:
== END 2024-09-28 03:46 ==
LOC: DI 03:26
PROVIDERS: Visit Provider Advanced Practice Midwife
DX: Z3A.32 32 weeks gestation of pregnancy (principal); Z34.83 Encounter for supervision of other normal pregnancy, third trimester
CPT/HCPCS: 76816

== ENCOUNTER 2024-10-18 00:40 | Outpatient (CLI) | payer MEDICAID, SELFPAY ==
--- NOTE | 2024-10-18 06:30 | DI.US_ITS ---
Exam(s) US OB HUMPHREY WEIGHT EXAM: US OB HUMPHREY WEIGHT CLINICAL HISTORY: interval growth using 11/29 RAINA from 7 wk TV scan,z87.59. TECHNIQUE: Transabdominal obstetrical ultrasound performed. COMPARISON: US US OB HUMPHREY WEIGHT from 09/28/2024 FINDINGS: Number of fetuses: 1 position: CEPHALIC Placental location: There is an anterior placenta again seen. No evidence of previa. BIOMETRIC DATA: BPD: 8.38cm, 33weeks 5days HC: 31cm, 34weeks 4days AC: 28.89cm, 32weeks 6days FL: 6.28cm, 32weeks 4days EFW: 2,103.87g, 4lb 11oz, 18.3% Composite Age: 33weeks 3days RAINA: 12/03/2024 Heart Rate: 138bpm Amniotic fluid index: 17.86cm. The largest pocket is 5.4 cm. A hepatic evaluation was not performed on this examination. IMPRESSION: 1. Single live intrauterine gestation as above. 2. Estimated weight is 2104gms. This is the 18th percentile. 3. Amniotic fluid index is 17.9 cm. The largest pocket is 5.4 cm. DATA REPOSITORY:
== END 2024-10-18 01:00 ==
PROVIDERS: PCP Nurse Practitioner Family; Visit Provider Advanced Practice Midwife
DX: Z87.59 Personal history of other complications of pregnancy, childbirth and the puerperium (principal); Z3A.33 33 weeks gestation of pregnancy; Z34.83 Encounter for supervision of other normal pregnancy, third trimester
CPT/HCPCS: 76816

== ENCOUNTER 2024-11-03 12:18 | Outpatient (REF) | payer MEDICAID, SELFPAY | END 2024-11-03 12:19 | disposition home or self-care (01) | LOC: LBN 12:18 | PROVIDERS: PCP Nurse Practitioner Family; Visit Provider Advanced Practice Midwife | DX: Z34.03 Encounter for supervision of normal first pregnancy, third trimester (principal) | CPT/HCPCS: 87081 ==

== ENCOUNTER 2024-11-23 10:05 | Outpatient (CLI) | payer MEDICAID, SELFPAY ==
[2024-11-23 11:05] VITALS: BP 116/73; PULSE 92; TEMP 36.8
[2024-11-23 11:07] VITALS: BP 116/73; PULSE 92
[2024-11-23 12:20] VITALS: BP 116/73; PULSE 92; TEMP 36.8
--- NOTE | 2024-11-23 12:20 | W.OBNST ---
Date of service: 11/23/24 Time of Service: 12:20 NST Evaluation Reason for NST Reasons for Nonstress Test: DECREASED MOVEMENT Gestational Age Gestational Age in Weeks and Days: 39 Weeks and 1Days Test and Monitor Explained Test/Monitor Explained: Test Explained, Monitor Explained and Patient Verbalized Understanding Vital Signs Blood Pressure: 116/73 Pulse: 92 Temperature: 98.2 F NST Information Date on Monitor: 11/23/24 Time on Monitor: 11:02 Date off Monitor: 11/23/24 Time off Monitor: 11:39 Total Time on Monitor: 37 NST Interventions: PO Hydration Contraction Frequency: irritability NST Evaluation Patient States Movement: Present FHR Baseline: 145 Variability: Moderate 6-25 bpm Accelerations: 15x15 Decelerations: None NST Results: Reactive Note Ultrasound Done: N/A. NST Note Note: Keep scheduled appt NST Reviewed and Verified by: Hillary Rivera
== END 2024-11-23 11:42 ==
LOC: BCD 10:08 → OBS 10:54
PROVIDERS: PCP Nurse Practitioner Family; Visit Provider Advanced Practice Midwife
DX: O36.8131 Decreased fetal movements, third trimester, fetus 1 (principal); Z3A.39 39 weeks gestation of pregnancy
CPT/HCPCS: 59025

== ENCOUNTER 2024-11-29 10:50 | Inpatient (IN) | payer MEDICAID, SELFPAY ==
[2024-11-29] VITALS (17 sets, daily range): BP systolic 103–129; BP diastolic 64–79; PULSE 98–134; RESP 16–17; TEMP 36.6–37.2; O2SAT 99
--- NOTE | 2024-11-29 10:52 | HPE_ITS ---
Date of service: 11/29/24 Time of Service: 10:52 Assessment and Plan Assessment and plan (1) Spontaneous onset of labor: Status: Acute Assessment and plan: Admit to Center and routine admission labs. Comfort measures. Anticipate . (2) Anemia affecting : Status: Acute Assessment and plan: CBC on admission OB-HPI Labor/Delivery History of Present Illness Reason for Visit: labor Chief Complaint: Uterine Contractions. RAINA Calculator Estimated Delivery Date Method Current WG Current Estimate 11/29/24 Ultrasound #1 40w 0d Other Estimates 11/23/24 LMP (Uncertain) 40w 6d Comments: Simone called with regular contractions at home. 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 Learning Difficulty-reading problems 2. CfDNA- low risk, Simone previously screened negative for CF. AFP- declined 3. History marijuana use- denies use in , UDS=neg, 28 wk UDS neg 4. Is 18 mo toddler, hopes to wean prior to delivery. 5. FOB born with SVT requiring surgery, also hx SGA last - referred for level 2 US at [facility] consult 5a. Level 2 and echo: Nml cardiac anatomy, liver calcification- Toxo & CMV titres drawn at [facility] are neg, 5b. f/up US at 32 weeks at DI: EFW is <3rd percentile, HUMPHREY 15, cephalic, liver calcifications noted, Stat ref to [facility] for IUGR 5c. [facility] @ [facility] recommends recalculating RAINA to 7+2 wk transvaginal dating scan, final RAINA 11/29, EFW in 23rd percentile 5d. [facility] recommends interval growth scan @ 34 wks EFW 18%ile, HUMPHREY nl 6. Mild anemia at 28 wks, hgb 10.4, advised to increase iron rich foods, take oral iron tab daily, Hgb 10.7 at 36 weeks 7. Size less than dates - EFW 18 %ile. HUMPHREY 17 Assessment: History Reviewed & Current [facility] All Active Problems (Updated 11/29/24 @ 10:54 by Jessica Matias CNM) Spontaneous onset of labor (Acute) History of prior with IUGR (Acute) Anemia affecting (Acute) Maternal varicella, non-immune (Acute) (Acute) Chronic GERD (Acute) Depression (Chronic) Heart murmur (Acute) Learning difficulty (Chronic) IEP signed 05/24/18 Medical History (Updated 11/29/24 @ 10:54 by Jessica Matias CNM) Anxiety Family history of congenital heart defect History of marijuana use Complete miscarriage Pelvic pain 04/30/22. + upt in [facility]. Serial hCG normal rise. Plan viability u/s in May 2022. Learning difficulty Family History Mother Mental disorder anxiety/depression Gestational diabetes Father Essential hypertension Other Diabetes MGM, MGF, mat uncles Alcohol abuse MGF Essential hypertension mat uncles, PGF, MGF Personal history of malignant neoplasm mat side Heart disease PGF, MGF Hyperlipidemia MGF Mental disorder MGM, MGF, mat uncles- anxiety/depression Myocardial infarction PGF, MGF Stroke MGF Maternal Grandmother Thyroid disease Social History Smoking/Tobacco Use Status: Never Smoking risk assessment performed?: Yes Alcohol Intake: current Alcohol Intake frequency: holidays/special occasions only Alcohol type: hard liquor Drug use: Never Substance use type: marijuana Duration: 45-60 minutes/day Frequency: daily Seatbelt use: always Helmet use: No Fire extinguisher in home: Yes Carbon monox detector in home: Yes Firearms in home: No Do you feel safe at home: Yes Do you feel safe in your relationship?: Yes Female Reproductive History Menstrual Age of Menarche: 16 Duration of menses: 6-7 days control method: none and implanted History History 3 Para 1 Hx # Term Pregnancies 1 Multiple births 0 Hx # Pregnancies 0 Ectopic pregnancies 0 AB induced 0 Hx Number of Living Children 1 AB spontaneous 1 Past Pregnancies Del. Date GA/Weeks # Preg Succ Route Wgt Sex Labor Lgth Anesth esia Location [facility] Compl 02/26/22 7 No No 01/11/23 40 No Yes vaginal 4 lb 15 oz Male 12hrs 32 min KIMO Paul Delivery Date: 02/26/22 Last Updated by: Rosy Pozo LPN miscarriage Delivery Date: 01/11/23 Last Updated by: KIMO Benitez Pos. GBS Meds Allergies and Home Medications Allergies Allergy/AdvReac Type Severity Reaction Status Date / Time No Known Allergies Allergy Verified 11/25/24 08:26 Home Medications ?Medication ?Instructions ?Recorded ?Confirmed ?Type vitamin with calcium 1 tab PO DAILY #90 tabs 10/20/24 11/25/24 Rx no.72-iron 27 mg-folic acid 1 mg tablet ( Vitamins Plus Low Iron) magnesium glycinate 100 mg (as 100 mg PO DAILY #30 tabs 11/03/24 11/25/24 Rx glycinate) tablet (Mag Glycinate) famotidine 20 mg tablet 20 mg PO BID 90 days #180 tabs 11/17/24 11/25/24 Rx ondansetron 4 mg disintegrating 4 mg PO Q8H PRN nausea and 11/17/24 11/25/24 Rx tablet vomiting 14 days #30 tabs pantoprazole 40 mg tablet,delayed 40 mg PO BID #60 tabs 11/17/24 11/25/24 Rx release (Protonix) fluconazole 150 mg tablet 150 mg PO ONCE #1 tab 11/23/24 11/25/24 Rx Exam Physical Exam Vital signs: Pulse BP 126 H 129/79 11/29/24 10:33 11/29/24 10:33 Vital Signs Reviewed: Yes Constitutional Constitutional: no acute distress Detailed Labor and Delivery Exam Dilation: 6 Effacement (%): 100 station: +1 Cervix position: mid Consistency: soft Estrada Score: Cervical Points Exam 0 1 2 3 Dilation Closed 1-2cm 3-4 cm 5-6cm Effacement 0-30% 40-50% 60-70% 80% Consistency Firm Medium Soft Station -3 -2 -1,0 +1,+2 Position Posterior Mid Anterior Amniotic Membrane Status: Intact Monitor Mode: External Contraction Frequency(min): every 3-5 min Contraction Duration(sec): 60 Contraction Intensity: Moderate/Strong Fetus A Heart Rate Baseline: 140 Monitor Accelerations: 15 X 15 Monitor Decelerations: None Variability: Moderate (6-25 BPM) Presentation: Cephalic Categories: Category I HEENT Exam HEENT Exam: Normal Respiratory Exam Respiratory Exam: Normal Cardiovascular Exam Cardiovascular Exam: Normal Abdominal Exam Abdominal Exam: Normal Exam Exam: Normal Extremities Exam Extremities Exam: Normal Skin Exam Skin Exam: Normal Psychiatric Exam Psychiatric Exam: Normal Risk Assessment Risk for Shoulder Dystocia Historical/Initial OB: NEGATIVE FOR: Pelvic Abnormality, Pre- BMI>30, Previous Shoulder Dystocia or Previous Macrosomia 36 Weeks: NEGATIVE FOR: Current Gestational DM, EFW>4500gms or Maternal Weight Gain>40lbs 40 Weeks: NEGATIVE FOR: EFW> 4500 gms, Maternal Weight Gain >40lb or Post Dates Risk for Pre-Eclampsia Date Initiated/Initials: 05/18/24 Yes, if one or more: NEGATIVE FOR: Hx Pre-E/Gest HTN, Chronic HTN, Multiple Gestation, Pre-gestational DM, Renal Disease, Systemic Lupus or APA Syndrome Yes, if 2 or more: NEGATIVE FOR: Nulliparity, Age>= 35 yrs, >10yr btwn pregnancies, BMI>30, ethinicty, Mother/Sister w/ Pre-E or Previous IUGR Risk for Post- Hemorrhage Initial: NEGATIVE FOR: Multiple Gestation, Previous PPH, Known Clotting Deficiency, Grand Multiparity or Anticoagulation 36 Weeks: NEGATIVE FOR: Anemia, hgb<10, Low platelets(thrombocytopenia), Gestational HTN or Pre-E, Polyhydraminios or EFW>4500gms 40 Weeks: NEGATIVE FOR: Anemia, hgb<10, Low platelets (thrombocytopenia), Ges tation HTN or Pre-E, Polyhydraminios or EFW>4500gms Counseled re: Active Management: Yes Risks Reviewed Risks Reviewed Upon Admission: Yes
[2024-11-29 11:23] LABS: HCT 32.2 % (36.0-46.0); HGB 10.6 g/dL (11.2-15.7); MCH 26.1 pg (27.0-33.0); MCHC 32.9 % (32.0-36.0); MCV 79 fL (80-95); MPV 10.6 fL (8.0-11.0); Platelet Count 321 10^3/uL (130-400); RBC 4.06 10^6/uL (3.93-5.22); RDW 14.5 % (11.7-14.6); RDW-SD 41.5 fL
--- NOTE | 2024-11-29 11:26 | W.OBNST ---
Date of service: 11/29/24 Time of Service: 11:26 NST Evaluation Reason for NST Reasons for Nonstress Test: FALSE LABOR Gestational Age Gestational Age in Weeks and Days: 40 Weeks and 0Days Test and Monitor Explained Test/Monitor Explained: Test Explained, Monitor Explained and Patient Verbalized Understanding Vital Signs Blood Pressure: 129/79 Pulse: 126 Temperature: 97.9 F NST Information Date on Monitor: 11/29/24 Time on Monitor: 10:32 Date off Monitor: 11/29/24 Time off Monitor: 10:57 Total Time on Monitor: 25 NST Interventions: PO Hydration and Notify Provider Contraction Frequency: Q5 NST Evaluation Patient States Movement: Present FHR Baseline: 145 Variability: Moderate 6-25 bpm Accelerations: 15x15 Decelerations: None NST Results: Reactive Note Ultrasound Done: N/A. NST Note Note: Simone caled and reported regular contractions at home. She was examined and was 6 cms/100% and + 1 with a small amount of bloody show. Admitted in active labor. NST Reviewed and Verified by: Jessica Matias
--- NOTE | 2024-11-29 13:19 | W.PM.OBNL1 ---
Date of service: 11/29/24 Time of Service: 13:19 Pelvic Exam Dilation: 8 Effacement (%): 100 station: +1 Cervix Position: mid Consistency: soft Vaginal Exam Presentation: Cephalic Pooling: Positive Comments: AROM performed for clear FLUID, Mod amount Contractions Monitor Mode: Palpation Contraction Frequency(min): every 3-4 Contraction Duration(sec): 60 Intensity: Moderate/Strong Fetus A Monitor: Doppler Heart Rate Baseline: 140 Presentation: Cephalic FHR Rhythm: Regular Decelerations: None Assessment and Plan Assessment and plan (1) Spontaneous onset of labor: Status: Acute Assessment and plan: Anticipate . Comfort measures provided. Care will be assumed by Sally Rivera at 1400. Objective Abnormal lab results 11/29/24 Range/Units 11:10 WBC 14.10 H (4.4-10.8) 10^3/uL Hgb 10.6 L (11.2-15.7) g/dL Hct 32.2 L (36.0-46.0) % MCV 79 L (80-95) fL MCH 26.1 L (27.0-33.0) pg Temp Pulse Resp BP Pulse Ox 99.0 F 100 H 17 115/79 99 11/29/24 11:11 11/29/24 11:11 11/29/24 11:11 11/29/24 11:11 11/29/24 11:11 Laboratory Results WBC 14.10 10^3/uL (4.4-10.8) H 11/29/24 11:10 RBC 4.06 10^6/uL (3.93-5.22) 11/29/24 11:10 Hgb 10.6 g/dL (11.2-15.7) L 11/29/24 11:10 Hct 32.2 % (36.0-46.0) L 11/29/24 11:10 MCV 79 fL (80-95) L 11/29/24 11:10 MCH 26.1 pg (27.0-33.0) L 11/29/24 11:10 MCHC 32.9 % (32.0-36.0) 11/29/24 11:10 RDW 14.5 % (11.7-14.6) 11/29/24 11:10 Plt Count 321 10^3/uL (130-400) 11/29/24 11:10 MPV 10.6 fL (8.0-11.0) 11/29/24 11:10 ABO/Rh O Positive 11/29/24 11:10 Antibody Screen NEGATIVE 11/29/24 11:10 Subjective Patient Reports: New Complaints Interval history since last seen: Simone used the tub for comfort with good effect. She returned to bed and is coping well with contractions. She requested SVE and AROM at this time. Results Hemoglobin/Hematocrit: Hgb 10.6 g/dL (11.2-15.7) L 11/29/24 11:10 Hct 32.2 % (36.0-46.0) L 11/29/24 11:10 Abnormal Lab Findings: Abnormal Labs 11/29/24 11:10 WBC 14.10 H Hgb 10.6 L Hct 32.2 L MCV 79 L MCH 26.1 L
[2024-11-29] MEDS: Oxytocin 10 UNITS/ML VIAL (14:12)
[2024-11-29] MEDS: Acetaminophen 325 MG TAB 650 MG PO ×2 (15:16→19:08)
[2024-11-29] MEDS: Ibuprofen 600 MG TAB PO ×2 (15:16→21:51)
[2024-11-29] MEDS: Dibucaine 1% 28 GM TUBE TP (15:16)
[2024-11-29] MEDS: Hamamelis Leaf/Glycerin 100 EACH BOX PR (15:17)
[2024-11-30] MEDS: Ibuprofen 600 MG TAB PO (02:23)
[2024-11-30] MEDS: Acetaminophen 325 MG TAB 650 MG PO (02:23)
[2024-11-30 07:42] VITALS: BP 99/79; PULSE 87; RESP 14; TEMP 36.8; O2SAT 970
--- NOTE | 2024-11-30 08:19 | W.PM.OBPNV1 ---
Date of service: 11/30/24 Time of Service: 08:19 Assessment and Plan Assessment and plan (1) Term delivered: Status: Acute Assessment and plan: A: PPD#1, nml recovery has been going well despite baby's stay in the nursery for obs P: Pt desires boarder status until her baby is discharged Plans POP's for contraception Written instructions reviewed and given to pt F/up at 2 and 6 wks Offer Varicella vaccine prior to discharge, repeat @ 6 wks Subjective Subjective Patient comments: No complaints, Pain well controlled, Tolerating diet and Flatus present Patient's Mood: tired but pleased baby status: Nursing well, Nursery (for overnight observation of tachypnea), Rooming in and Strong Bonding Observed feeding status: Exclusively breast feeding Exam Physical Exam Vital signs: Temp Pulse Resp BP Pulse Ox 98.2 F 87 14 99/79 L 970 H 11/30/24 07:42 11/30/24 07:42 11/30/24 07:42 11/30/24 07:42 11/30/24 07:42 Vital Signs Reviewed: Yes Constitutional Constitutional: no acute distress, average body habitus and cooperative HEENT Exam HEENT Exam: Normal Neck Exam Neck Exam: Normal Breast Exam Bilateral: Breast Exam: Normal and Soft Nipple Exam: Normal and Uninjured Respiratory Exam Respiratory Exam: Normal Cardiovascular Exam Cardiovascular Exam: Normal Abdominal Exam Abdomen: Other (soft, nontender) Fundal Exam Fundus: Below Umbilicus and Firm Rectal Exam Rectal Exam: Normal Exam Perineum: Intact Extremities Exam Extremity Exam: Normal, Full ROM and Warm to Touch Back/Spine/Pelvis Exam Back Exam: Normal Skin Exam Skin Exam: Normal Neurological Exam Neurological Exam: Normal Psychiatric Exam Psychiatric Exam: Normal
--- NOTE | 2024-11-30 08:24 | DSE_ITS ---
Date of service: 11/30/24 Time of Service: 08:24 DS: Diagnosis Discharge Diagnosis (1) Term delivered: Status: Acute Discharge Plan Disposition Patient Disposition: Home Condition: Good Discharge Details Reason For Visit: Labor Admit Date/Time: 11/29/24 10:50 Admit Provider: Jessica Matias Attending Provider: Jessica Matias Primary Care Provider: Coni Oliveros Hospital Course Hospital Course: on HD#1, normal course, pt requests discharge to [facility] status while her baby is under observation. Home Meds and New Rx's Prescriptions: No Action Vitamin Plus Low Iron 27 mg iron- 1 mg tablet 1 tab PO DAILY Qty: 90 4RF Mag Glycinate 100 mg tablet 100 mg PO DAILY Qty: 30 0RF Discharge Instructions Additional Instructions: Please keep your 2 and 6 week appointments, call for any and all concerns. Stand Alone Forms: BC Instructions, BC Post Vaginal Delive r Activity:: Activity as Tolerated Equipment/Supplies:: No Equipment Needed Diet:: Normal Diet OB:DS Summary Contraception Discussed Contraception Discussed: Yes Contraceptive Plan: Control Pill/Patch, [place] Infant Gender-Baby A: Male weight: 7 lb 3.875 oz Status at Discharge Functional status at discharge: independent ambulation Overall status at discharge: patient is progressing back to baseline Mental Status: mental status grossly normal Speech and Movement: speech and movement normal and speech clear Mood: congruent mood Affect: normal affect Quality:SDOH Health Related Social Needs: Health related social needs education (Z55.6) Health related social needs details NA Health related social needs details: NA Exam Physical Exam Vital signs: Temp Pulse Resp BP Pulse Ox 98.2 F 87 14 99/79 L 970 H 11/30/24 07:42 11/30/24 07:42 11/30/24 07:42 11/30/24 07:42 11/30/24 07:42 Vital Signs Reviewed: Yes Constitutional Constitutional: no acute distress, average body habitus and cooperative HEENT Exam HEENT Exam: Normal Neck Exam Neck Exam: Normal Breast Exam Bilateral: Breast Exam: Normal and Soft Respiratory Exam Respiratory Exam: Normal Cardiovascular Exam Cardiovascular Exam: Normal Abdominal Exam Abdomen: Other (soft, nontender) Fundal Exam Fundus: Below Umbilicus and Firm Rectal Exam Rectal Exam: Normal Exam Perineum: Intact Extremities Exam Extremity Exam: Normal, Full ROM and Warm to Touch Back/Spine/Pelvis Exam Back Exam: Normal Skin Exam Skin Exam: Normal Neurological Exam Neurological Exam: Normal Psychiatric Exam Psychiatric Exam: Normal PFSH All Active Problems (Updated 11/30/24 @ 08:21 by Hillary Rivera) Term delivered (Acute) Maternal varicella, non-immune (Acute) Chronic GERD (Acute) Depression (Chronic) Heart murmur (Acute) Learning difficulty (Chronic) IEP signed 05/24/18 Medical History (Updated 11/30/24 @ 08:21 by Hillary Rivera) Anemia affecting History of prior with IUGR Spontaneous onset of labor Anxiety Family history of congenital heart defect History of marijuana use Complete miscarriage Pelvic pain 04/30/22. + upt in [facility] ED. Serial hCG normal rise. Plan viability u/s in May 2022. Learning difficulty Family History Mother Mental disorder anxiety/depression Gestational diabetes Father Essential hypertension Other Diabetes MGM, MGF, mat uncles Alcohol abuse MGF Essential hypertension mat uncles, PGF, MGF Personal history of malignant neoplasm mat side Heart disease PGF, MGF Hyperlipidemia MGF Mental disorder MGM, MGF, mat uncles- anxiety/depression Myocardial infarction PGF, MGF Stroke MGF Maternal Grandmother Thyroid disease Social History Smoking/Tobacco Use Status: Never Smoking risk assessment performed?: Yes Alcohol Intake: current Alcohol Intake frequency: holidays/special occasions only Alcohol type: hard liquor Drug use: Never Substance use type: marijuana Housing: apartment Duration: 45-60 minutes/day Frequency: daily Seatbelt use: always Helmet use: No Fire extinguisher in home: Yes Carbon monox detector in home: Yes Firearms in home: No Do you feel safe at home: Yes Do you feel safe in your relationship?: Yes Female Reproductive History Menstrual Age of Menarche: 16 Duration of menses: 6-7 days control method: none and implanted History History 3 Para 1 Hx # Term Pregnancies 1 Multiple births 0 Hx # Pregnancies 0 Ectopic pregnancies 0 AB induced 0 Hx Number of Living Children 1 AB spontaneous 1 Past Pregnancies Del. Date GA/Weeks # Preg Succ Route Wgt Sex Labor Lgth Anesth esia Location Prov [facility] 02/26/22 7 No No 01/11/23 40 No Yes vaginal 4 lb 15 oz Male 12hrs 32 min KIMO Paul Delivery Date: 02/26/22 Last Updated by: Rosy Pozo LPN miscarriage Delivery Date: 01/11/23 Last Updated by: KIMO Benitez Pos. GBS DS: Data Vitals/I&O Vitals and I&O: Vital Signs Temperature 98.2 F 11/30/24 07:42 Temperature 97.9 F 11/29/24 11:27 Temperature Source Oral 11/30/24 07:42 Pulse 87 11/30/24 07:42 Pulse 126 11/29/24 11:27 Pulse Rhythm Regular 11/30/24 07:42 Respiratory Rate 14 11/30/24 07:42 Respiratory Depth Normal 11/29/24 19:59 Blood Pressure 99/79 L 11/30/24 07:42 Blood Pressure 129/79 11/29/24 11:27 Blood Pressure Mean 85 11/30/24 07:42 Pulse Oximetry 970 H 11/30/24 07:42 Oxygen Delivery Method Room Air 11/29/24 10:59 Oxygen Flow Rate 0 11/29/24 10:59 Pain Level 0 11/30/24 07:42 Intake & Output 11/29/24 11/29/24 11/30/24 11:59 23:59 11:59 Output Total 300 / 300 Balance -300 / -300 Weight 170 lb Output: Urine 300 / 300 Other: Urine Color Pale Yellow Yellow Urine Appearance Clear Urine Odor None Data Completed and Pending Labs on day of discharge: Labs from last 24 hours 11/29/24 11:10: WBC 14.10 H, RBC 4.06, Hgb 10.6 L, Hct 32.2 L, MCV 79 L, MCH 26.1 L, MCHC 32.9, RDW 14.5, Plt Count 321, MPV 10.6, ABO/Rh O Positive, Antibody Screen NEGATIVE
--- NOTE | 2024-11-30 11:05 | W.OBDELIVERY ---
Date of service: 11/29/24 Time of Service: 16:00 OB Labor/ Delivery Information Baby A Delivery Delivery Method: Spontaneaous Presentation: Cephalic Vertex Position: Right Occipital Anterior Cord Description-Baby A: 3 Vessels Amniotic Fluid: Clear Quantitative Blood Loss: 250 Delivery Outcome: Liveborn Infant Complications: none Transferred: Remains with Mother Note: Simone used nitrous oxide for pain relief and progressed to full dlation. FHTs 140s with doppler during first stage of labor. FHTs 120s in second stage. She began pushing well. Second stage huddle was done. Spontaneous delivery of male infant delivered in ROSIBEL position. Baby was placed on mother's abdomen and dried and stimulated. Spontaneous cry. Cord was clamped and cut by the baby's father. The placenta delivered spontaneously and appears to be intact with a three vessel cord. Pitocin 10 units IM was administered before delivery of the placenta. The perineum was inspected and a left periurethral laceration was noted. It was not bleeding and was not repaired. The baby did breastfeed. After delivery, Mother and bab and father of the baby were stable and bonding well in the delivery room and there were no complications. Providers Nurse Sec Reporting Consultant: Jessica Matias Nurse: Elsy Brewer Nurse: Lisa Del Cid Labor/Delivery Information Number of Babies in Womb: 1 Steroids Given: None Reason Steroids Not Administered: N/A Group Beta Strep: Negative Antibiotics Administered: No Rubella Status: Immune Blood Type: O+ Varicella Immunity: Nonimmune Born En Route: No Maternal Complications: None Shoulder Dystocia: No Stages of Labor Onset of Labor Date: 11/29/24 Onset of Labor Time: 04:00 Complete Dilatation Date: 11/29/24 Complete Dilatation Time: 13:59 Labor - Stage 1 Duration: 9 hours and 59 minutes ROM Baby A: 11/29/24 ROM Baby A: 13:17 ROM Total Time- Baby A: [id number] Infant Delivery Date-Baby A: 11/29/24 Delivery Time-Baby A: 14:08 Labor Stage 2 Duration: 9 minutes Placenta Delivery Date-Baby A: 11/29/24 Placenta Delivery Time-Baby A: 14:13 Labor-Stage 3 Duration: 5 minutes Total Length of Labor-Baby A: 10 hours and 8 minutes Placenta Status: Delivered Baby A Infant Gender: Male Gestational Status: Term (39-41.6 wks) Gestational Age in Weeks/Days: 40 Weeks and 0 Days weight: 7 lb 3.875 oz Length-Baby A: 20 in Head Circumference-Baby A: 13 in Score-1 Minute Interval(Baby A) Heart Rate-1 minute: 100 BPM or Greater Respiratory Effort- 1 minute: Spontaneous/Strong Cry Muscle Tone-1 minute: Active Movement Reflex Response-1 minute: Prompt Response Color-1 minute: Bluish Hands or Feet Total Score-1 minute: 9 Score-5 Minute Interval(Baby A) Heart Rate- 5 minute: 100 BPM or Greater Respiratory Effort-5 minute: Spontaneous/Strong Cry Muscle Tone-5 minute: Active Movement Reflex Response-5 minute: Prompt Response Color-5 minute: Bluish Hands or Feet Total Score- 5 minute: 9
== END 2024-11-30 11:53 | disposition home or self-care (01) | DRG 807 ==
LOC: BCD 14:42 → OBS 14:43
PROVIDERS: Admitting Provider Advanced Practice Midwife; PCP Nurse Practitioner Family; Visit Provider Advanced Practice Midwife
DX: O99.02 Anemia complicating childbirth (principal); Z37.0 Single live birth; O36.5930 Maternal care for other known or suspected poor fetal growth, third trimester, not applicable or unspecified; O71.82 Other specified trauma to perineum and vulva; Z3A.40 40 weeks gestation of pregnancy
CPT/HCPCS: 36415; 85027; 86850; 86900; 86901; 59025; J2590